=== PATIENT | female | born 1995 | race Caucasian/White ===

== ENCOUNTER 2017-01-23 14:47 | Observation (INO) | payer MEDICAID, OTHER ==
[2017-01-23] VITALS (10 sets, daily range): BP systolic 97–121; BP diastolic 54–64; PULSE 70–84; RESP 16–20; TEMP 96–96.8; O2SAT 98–100; Ht 162.6 cm; Wt 120.9 kg
[~2017-01-23] VITALS: Ht 162.6 cm; Wt 120.9 kg
[~2017-01-23 14:47] MED LIST: AMPH20TA PO; ARIP2TAB3 PO; ASMANEX 220 MCG INH; BUPR150T89 PO; FISH1CAP29 PO; MONT10TA15 PO
--- OUTSIDE RECORDS SUMMARY | 2017-01-23 14:51 | XMS REPORT ---
Author Author Tiffanie Ravi Organization [employer] Address Unknown Phone Unavailable Care Team Providers Care Smeller Name Role Phone Tiffanie Ravi CP Unavailable Allergies, Adverse Reactions, Alerts Substance Reaction Event Type Narcotics Info Not Available Non Drug Allergy Problems Problem Type Condition ICD-9 Code Onset Dates Condition Status Assessment SVT, Sustained 427.0 Active Medications Medication Code System Code Instructions Start Date End Date Status Dosage Keppra [facility] [address]-09 500 MG Orally every 12 hrs 1 tablet Sertraline HCl [facility] [address]-11 50 MG Orally Once a day 1 1/2 tablets Multi-Vitamin [facility] [address]-74 Orally QD 1 tablet Trazodone HCl [facility] [address]-16 100 MG Orally QHS 0.5 tablet at bedtime as needed Metoprolol Tartrate [facility] [address]-26 50 MG Orally Twice a day 1 tablet ProAir HFA [facility] [address]-18 108 (90 Base) MCG/ACT Inhalation every 4 hrs 2 puffs as needed HydrOXYzine HCl [facility] [address]-70 25 MG Orally TID prn 1 tablet Procedures Procedure Coding System Code Date Office Visit, Est Pt., Level 3 CPT-4 68324 Jun 06, 2015 ELECTROCARDIOGRAM, COMPLETE CPT-4 32640 Jun 06, 2015 Vital Signs Date/Time: Jun 06, 2015 BMI 44.11 Index Weight 257. lbs Height 64 in Cardiac Monitoring Heart Rate 69 /min Oximetry 97% % Blood Pressure Diastolic 80 mm Hg Blood Pressure Systolic 110 mm Hg Results No Known Results Summary Purpose [employer] Submission
--- OUTSIDE RECORDS SUMMARY | 2017-01-23 14:51 | XMS REPORT ---
Author Author GENERATED, SYSTEM Organization Unknown Address Unknown Phone Unavailable Care Team Providers Care Social Services Designee Name Role Phone UNASSIGNED DOCTOR MD CYNTHIA DOCTOR PP [phone] Reason For Visit Chief Complaint COUGH, SOB, FEVER Social History Functional Status Vital Signs Results Problems Encounter Diagnosis No relevant problems exist. Encounters Encounter Diagnosis No relevant problems exist. Plan of Care Procedures * Completed Procedure Code: 86.59 Procedure Name: not valued, on 03/18/2014 12: 00 AM Immunizations No immunizations administered or ordered. Hospital Course Hospital Discharge Instructions Allergies, Adverse Reactions, Alerts * Latex Allergy has not been assessed. * IV Contrast Allergy has not been assessed. * No Known Drug Allergies. Medication Medication reconciliation has not been performed.
--- OUTSIDE RECORDS SUMMARY | 2017-01-23 14:51 | XMS REPORT | Summary of Care ---
Author Author Jason Jensen M.D. Organization Unknown Address [address], [place] [id number] Phone Unavailable Care Team Providers Care Forensic Medical Examiner Name Role Phone Mikey Hicks, L Unavailable Unavailable Jeff Yang PP Unavailable Unavailable Unavailable Functional Status Functional Status Health Issues* Name Dates Details Functional status health issues are not documented Status: Cognitive Status Health Issues* Name Dates Details Cognitive status health issues are not documented Status: Problems Name Dates Details Encounter for pre-employment examination (V70.5, Z02.1) Status: Active SVT (supraventricular tachycardia) (427.89, I47.1) Status: Active Anxiety (300.00, F41.9) Status: Active Lack of adequate sleep (V69.4, Z72.820) Status: Active control (V25.9, Z30.9) Status: Active Mood problem (V40.2, F48.9) Status: Active UTI (lower urinary tract infection) (599.0, N39.0) Status: Active Abdominal pain (789.00, R10.9) Status: Active Medications Name Dates Details Venlafaxine HCl - 75 MG Oral Tablet TAKE 3 TABLETS DAILY * Started 15-Jul-2014 ActiveMetoprolol Tartrate 50 MG Oral Tablet TAKE 1 TABLET EVERY 12 HOURS DAILY. * Refills: 0 * Started 25-Jan-2015 ActiveTraZODone HCl - 100 MG Oral Tablet TAKE 1 TABLET AT BEDTIME. * Refills: 0 * Started 25-Jan-2015 ActiveMultiple Vitamins/Womens Oral Tablet TAKE 1 TABLET DAILY. * Refills: 0 * Started 25-Jan-2015 ActiveCiprofloxacin HCl - 500 MG Oral Tablet TAKE 1 TABLET TWICE DAILY. * Quantity: 14 Refills: 0 Jason Jensen M.D.* Started 02-Mar-2015 Ended 09-Mar-2015 ActiveKetorolac Tromethamine 10 MG Oral Tablet TAKE 1 TABLET 3 TIMES DAILY NEEDED FOR PAIN. * Quantity: 15 Refills: 0 Jason Jensen M.D.* Started 02-Mar-2015 ActiveOndansetron 8 MG Oral Tablet Dispersible 1 tab po q 6 hours prin nausea or vomiting * Quantity: 10 Refills: 0 Jason Jensen M.D.* Started 02-Mar-2015 Active Allergies and Adverse Reactions Name Dates Details No Known Drug Allergies Status: Active Past Medical History Name Dates Details History of asthma (V12.69, Z87.09) Status: Resolved History of depression (V11.8, Z86.59) Status: Resolved History of Heart rate problem (785.3, R00.9) Status: Resolved History of supraventricular tachycardia (V12.59, Z86.79) Status: Resolved History of Treadmill stress test negative for angina pectoris (V81.2, Z13.6) Status: Resolved Procedures Procedure Dates Details History of Tonsillectomy Procedures not documented Immunization Name Dates Details Immunizations not documented Family History Grandmother* Name Dates Details Family history of cerebrovascular accident (V17.1, Z82.3) Status: Active Grandmother* Name Dates Details Family history of myocardial infarction (V17.3, Z82.49) Status: Active Grandmother* Name Dates Details Family history of diabetes mellitus (V18.0, Z83.3) Status: Active Grandfather* Name Dates Details Family history of malignant neoplasm of prostate (V16.42, Z80.42) Status: Active Family history of alcoholism (V17.0, Z81.1) Status: Active Mother* Name Dates Details Family history of hypertension (V17.49, Z82.49) Status: Active Brother* Name Dates Details Family history of alcoholism (V17.0, Z81.1) Status: Active Social History Name Dates Details Lack of adequate sleep (V69.4, Z72.820) Smoking Status* Unknown if ever smoked Vital Signs Date Test Result Details 02-Mar-2015 15:46 BP Systolic 130 mm[Hg] Status: BP Diastolic 74 mm[Hg] Status: Heart Rate 90 /min Status: Temperature 99 f Status: O2 SAT 98 % Status: Results Date Description Value Details 02-Mar-2015 16:38 URINE TEST 8010 Comments: pick up attendant rlk URINE TEST Negative (Better) Range: Negative Comments: Internal Control: Acceptable----- 16:40 Manual Differential 7400 SEGS 84 % (Above high threshold) Range: 37-80 BANDS 0 % (Better) Range: 0-7 LYMPH 13 % (Better) Range: 13-50 MONO 3 % (Better) Range: 0-12 EOSIN 0 % (Better) Range: 0-7 BASO 0 % (Better) Range: 0-3 TRACY LYMPH 0 % (Better) Range: 0-0 META 0 % (Better) Range: 0-0 MYELO 0 % (Better) Range: 0-0 PRO 0 % (Better) Range: 0-0 BLAST 0 % (Better) Range: 0-0 NUC RBC 0 /100 WBC (Better) Range: 0-0 SMUDGE 0 /100 WBC (Better) PLATELET Adequate (Better) Range: Adequate 16:41 CBC w/ Auto Diff 7150 Comments: Manual differential indicated. WBC 10.0 K/uL (Better) Range: 4.5-11.0 RBC 4.66 mil/uL (Better) Range: 3.60-5.00 HGB 13.8 g/dL (Better) Range: 12.0-16.0 HCT 39.9 % (Better) Range: 36.0-48.0 MCV 85.7 fL (Better) Range: 80.0-99.0 MCH 29.7 pg (Better) Range: 27.3-32.5 MCHC 34.7 % (Better) Range: 32.0-36.0 RDW 12.9 % (Better) Range: 11.6-14.8 PLATELETS 288 K/uL (Better) Range: 150-400 MPV 7.4 fL (Better) Range: 6.0-11.0 16:46 Urinalysis, Reflex to Microscopic or Culture PRN 8005 Comments: pick up attendant rlk pH 6.0 (Better) Range: 5.0-7.5 SP GRAVITY 1.020 (Better) Range: 1.010-1.030 APPEARANCE CLOUDY (Abnormal) Range: Clear COLOR DKYELLOW (Abnormal) Range: Straw-Yellow PROTEIN 100 mg/dL (Abnormal) Range: Negative-Trace GLUCOSE NEGATIVE mg/dL (Better) Range: Negative KETONE NEGATIVE mg/dL (Better) Range: Negative BILIRUB NEGATIVE (Better) Range: Negative BLOOD LARGE (Abnormal) Range: Negative UROBIL 0.2 EU/dL (Better) Range: 0.2-1.0 NITRITE POSITIVE (Abnormal) Range: Negative Comments: Specimen referred to Microbiology for Culture----- LEUK MODERATE (Abnormal) Range: Negative 16:46 Urine Microscopic UMIC Comments: pick up attendant rlk WBC 11-20 /HPF (Abnormal) Range: 0-5 Comments: Specimen referred to Microbiology for Culture----- RBC TNTC /HPF (Abnormal) Range: 0-2 BACTERIA 3+ /HPF (Abnormal) Range: Negative-Trace Comments: Specimen referred to Microbiology for Culture----- EPITH 6-10 /HPF (Better) Range: 0-10 16:50 AMYLASE 1250 AMYLASE 26 U/L (Better) Range: 25-115 16:50 Lipase 1275 LIPASE 83 U/L (Better) Range: 73-393 16:50 Comprehensive Metabolic Panel 1212 SODIUM 137 mmol/L (Better) Range: 133-144 POTASSIUM 3.9 mmol/L (Better) Range: 3.5-5.1 CHLORIDE 103 mmol/L (Better) Range: 98-110 CARBON DIOXIDE 23.5 mmol/L (Better) Range: 23.0-33.0 ANION GAP 11 mmol/L (Better) Range: 6-16 BUN 11 mg/dL (Better) Range: 7-18 CREATININE, SERUM 0.78 mg/dL (Better) Range: 0.43-1.13 BUN:CREATININE RATIO 14 (Better) EST GFR, >60 ml/min (Better) Range: >60 EST GFR, NON-AFR NEPALESE >60 ml/min (Better) Range: >60 Comments: EST GFR is reported in ml/min per 1.73 m2 of body surface area. For -Czech, please multiple result by 1.2.----- GLUCOSE 92 mg/dL (Better) Range: 70-100 ALK PHOSPHATASE 69 U/L (Better) Range: 46-116 TOTAL BILIRUBIN 1.00 mg/dL (Better) Range: 0.20-1.00 AST 23 U/L (Better) Range: 8-35 ALT 37 U/L (Better) Range: 14-59 Comments: Please note new reference ranges. Effective 12/29/2014.----- ALBUMIN 3.6 g/dL (Better) Range: 3.4-5.0 TOTAL PROTEIN 8.3 g/dL (Above high threshold) Range: 6.4-8.2 A/G RATIO 0.8 units (Below low threshold) Range: 1.0-1.8 CALCIUM 9.1 mg/dL (Better) Range: 8.5-10.1 17:16 CT AB/ PEL WITH IV AND ORAL CONTRAST Comments: Exam Date: 2014 16:20Dictation Date: 03/02/2015 17:16 XC AB/PEL 45 MIN PREP (Better) 04-Mar-2015 07:35 URINE CULTURE 5010 *URINE CULTURE Microbiology results (Better) Comments: URINE SOURCE: Clean CatchCOLONY COUNT>100,000 cfu/ml. of a Gram Neg. BacilliRESULT: Escherichia coli (Isolate 1)Antibiotic Sensitivity Isolate 1 ---------Ampicillin >16 RAmpicillin/Sulbactam 16/8 IAugmentin <=8/4 SCefazolin <=8 SCefepime <=8 SCefoxitin <=8 SCeftazidime <=1 SCeftriaxone <=8 SCefuroxime <=4 SCiprofloxacin <=1 SErtapenem <=1 SGentamicin >8 RImipenem <=4 SLevofloxacin <=2 SMeropenem <=4 SNitrofurantoin <=32 SPiperacillin/Tazobactam <=16 STetracycline >8 RTobramycin 8 ITrimeth/Sulfa >2/38 RS=Sensitive, I=Intermediate, R=Resistant, ESBL=Extended spectrum beta- lactamase enzymes produced, Jim=Beta-lactamase positive, IB=Inducible Beta- lactamase enzymes known to be present.----- Plan of Care Planned Observations* Name Dates Details Planned Goals not documented Goal Instructions * Instructions not documented Encounters Appointment; Jason Jensen Encounter Diagnosis: Problem not documented On 02-Mar-2015 15:30 Appointment; Enrique Nova Encounter Diagnosis: Problem not documented On 25-Jan-2015 10:30 Appointment; Eliud Ledesma Encounter Diagnosis: Problem not documented On 15-Jul-2014 14:30 Appointment; Jason Jensen Encounter Diagnosis: Problem not documented On 14:15 Appointment; Jason Jensen Encounter Diagnosis: Problem not documented On 11:15
--- OUTSIDE RECORDS SUMMARY | 2017-01-23 14:51 | XMS REPORT | Summary of Care ---
Author Author Avtar Hicks, T. K. Organization Unknown Address [address] [place], [place] [id number] Phone Unavailable Care Team Providers Care Services Advisor Name Role Phone Jeff Yang PP Unavailable Functional Status Functional Status Health Issues* Name Dates Details Functional status health issues are not documented Status: Cognitive Status Health Issues* Name Dates Details Cognitive status health issues are not documented Status: Problems Name Dates Details Encounter for pre-employment examination (V70.5, Z02.1) Status: Active SVT (supraventricular tachycardia) (427.89, I47.1) Status: Active Anxiety (300.00, F41.9) Status: Active Heart rate problem (785.3, R00.9) Status: Active Lack of adequate sleep (V69.4, Z72.820) Status: Active control (V25.9, Z30.9) Status: Active Mood problem (V40.2, F48.9) Status: Active Medications Name Dates Details Venlafaxine HCl - 75 MG Oral Tablet TAKE 3 TABLETS DAILY * Started 15-Jul-2014 ActiveHydrOXYzine HCl - 25 MG Oral Tablet TAKE 1 TABLET 3 TIMES DAILY NEEDED. * Refills: 0 * Started 25-Jan-2015 ActiveMetoprolol Tartrate 50 MG Oral Tablet TAKE 1 TABLET EVERY 12 HOURS DAILY. * Refills: 0 * Started 25-Jan-2015 ActiveTraZODone HCl - 100 MG Oral Tablet TAKE 1 TABLET AT BEDTIME. * Refills: 0 * Started 25-Jan-2015 ActiveTri-Sprintec 0.18/0.215/0.25 MG-35 MCG Oral Tablet TAKE 1 TABLET DAILY. * Refills: 0 * Started 25-Jan-2015 ActiveMultiple Vitamins/Womens Oral Tablet TAKE 1 TABLET DAILY. * Refills: 0 * Started 25-Jan-2015 Active Allergies and Adverse Reactions Name Dates Details No Known Drug Allergies Status: Active Procedures Procedure Dates Details Procedures not documented Immunization Name Dates Details Immunizations not documented Family History Unknown Family Member* Name Dates Details No pertinent family history Comments: Unknown Status: Active Social History Name Dates Details Lack of adequate sleep (V69.4, Z72.820) Smoking Status* Unknown if ever smoked Vital Signs Date Test Result Details 25-Jan-2015 10:42 BP Systolic 116 mm[Hg] Status: BP Diastolic 70 mm[Hg] Status: Heart Rate 70 /min Status: Weight 253 lb Status: Height 63 in Status: Body Mass Index Calculated 44.82 kg/m2 Status: Body Surface Area Calculated 2.14 m2 Status: Results Date Description Value Details Results not documented Plan of Care Planned Observations* Name Dates Details Planned Goals not documented Goal Instructions * Instructions not documented Encounters Appointment; Enrique Nova Encounter Diagnosis: Problem not documented On 25-Jan-2015 10:30 Appointment; Eliud Ledesma Encounter Diagnosis: Problem not documented On 15-Jul-2014 14:30 Appointment; Jason Jensen Encounter Diagnosis: Problem not documented On 14:15 Appointment; Jason Jensen Encounter Diagnosis: Problem not documented On 11:15
--- OUTSIDE RECORDS SUMMARY | 2017-01-23 14:51 | XMS REPORT ---
Author Author Tiffanie Ravi Organization [facility] Address [address] [place] [address] Care Team Providers Care Offline Editor Name Role Phone Tiffanie Ravi Unavailable [phone] PROBLEMS Type Condition ICD9-CM Code [id number] Code Onset Dates Condition Status SNOMED Code Assessment SVT, Sustained 427.0 Sep, Active 09813173 Assessment Sinus tachycardia R00.0 Sep, Active 28551424 ALLERGIES Substance Reaction Event Type Date Status Morphine Sulfate Unknown Drug Allergy Sep, Active SOCIAL HISTORY No smoking Hx information available PLAN OF CARE Activity Details Pending Test AtriaECW 6 Months,Reason: VITAL SIGNS Height 64 in 2016-10-17 Weight 246 lbs 2016-10-17 BMI 42.22 kg/m2 2016-10-17 Oximetry 99 % 2016-10-17 Heart Rate 79 /min 2016-10-17 Blood pressure systolic 120 mm Hg 2016-10-17 Blood pressure diastolic 70 mm Hg 2016-10-17 MEDICATIONS Medication Instructions Dosage Frequency Start Date End Date Duration Status Lab Order Orders as directed Sep, Active Lab Order Orders as directed Jun, Active Metoprolol Tartrate 50 MG Orally qd 1 tablet 24h Active Ranitidine HCl 150 MG Orally Once a day 1 tablet 24h Active B-Complex Orally qd 24h Active Probiotic Daily Orally qd 24h Active Tri-Sprintec 0.18/0.215/0.25 MG-35 MCG Orally Once a day 1 tablet 24h Active Bio cleanse-absorbic acid/mag/sodium p.o. bid 1 cap 12h Active Olanzapine 2.5 MG Orally prn 1 tablet Active Minocycline HCl 100 MG Orally qod 1 capsule Active RESULTS No Results PROCEDURES Procedure Date Ordered Related Diagnosis Body Site ELECTROCARDIOGRAM, COMPLETE Oct 17, 2016 Office Visit, Est Pt., Level 3 Oct 17, 2016 IMMUNIZATIONS No Known Immunizations
--- OUTSIDE RECORDS SUMMARY | 2017-01-23 14:51 | XMS REPORT ---
Author Author GENERATED, SYSTEM Organization Unknown Address Unknown Phone Unavailable Care Team Providers Care Machine Captain Name Role Phone UNASSIGNED DOCTOR MD CYNTHIA DOCTOR PP [phone] Reason For Visit Reason for Visit from 04/12/2015 1:24 PM:* Pt Stated Reason for Adm : Depression with SI Reason for Visit from 04/10/2015 5:30 PM:* Pt Stated Reason for Adm : Depression with SI Chief Complaint MOOD D/O NOS Social History Social History from 04/13/2015 11:29 AM:* Tobacco Use? : Never Smoker Social History from 04/12/2015 1:24 PM:* Tobacco Use? : Never Smoker Social History from 04/10/2015 5:30 PM:* Tobacco Use? : Never Smoker Functional Status Functional Status from 04/13/2015 9:00 AM:* LOC : Alert * Oriented To : Person,Place,Time,Event * Weight Bearing Status : Full * Assist Level : Independent * # Assists : Independent Functional Status from 04/12/2015 7:41 PM:* LOC : Alert * Oriented To : Person,Place,Time,Event * Weight Bearing Status : Full * Assist Level : Independent * # Assists : Independent Functional Status from 04/12/2015 10:30 AM:* LOC : Alert * Oriented To : Person,Place,Time,Event * Weight Bearing Status : Full * Assist Level : Independent * # Assists : Independent Functional Status from 04/11/2015 9:15 PM:* LOC : Alert * Oriented To : Person,Place,Time,Event * Weight Bearing Status : Full * Assist Level : Independent * # Assists : Independent Functional Status from 04/11/2015 10:30 AM:* LOC : Alert * Oriented To : Person,Place,Time * Weight Bearing Status : Full * Assist Level : Independent * # Assists : Independent Functional Status from 04/10/2015 8:30 PM:* LOC : Alert * Oriented To : Person,Place,Time,Event * Weight Bearing Status : Full * Assist Level : Independent * # Assists : Independent Functional Status from 04/10/2015 5:30 PM:* LOC : Alert * Oriented To : Person,Place,Time,Event * Weight Bearing Status : Full * Assist Level : Independent * # Assists : Independent Vital Signs Hospital Vital Signs from 04/13/2015 6:31 AM:* Weight : 111.2/ kg * Height : 5/4 ft,in * Temperature : 98.0 F * Pulse : 61 * Respirations : 16 * BP : 106/60 Hospital Vital Signs from 04/12/2015 8:10 AM:* Height : 5/4 ft,in * Pulse : 63 * BP : 135/87 Hospital Vital Signs from 04/12/2015 6:39 AM:* Weight : 111.6/ kg * Height : 5/4 ft,in * Temperature : 97.1 F * Pulse : 62 * Respirations : 18 * BP : 114/62 Hospital Vital Signs from 04/11/2015 8:46 PM:* Height : 5/4 ft,in * Pulse : 54 * Respirations : 18 * BP : 137/84 Hospital Vital Signs from 04/11/2015 9:57 AM:* Height : 5/4 ft,in Hospital Vital Signs from 04/11/2015 8:34 AM:* Height : 5/4 ft,in * Temperature : 97.0 F * Pulse : 164 * Respirations : 18 * BP : 124/75 Hospital Vital Signs from 04/11/2015 5:48 AM:* Height : 5/4 ft,in * Temperature : 97.0 F * Pulse : 62 * Respirations : 18 * BP : 109/49 Hospital Vital Signs from 04/10/2015 9:24 PM:* Height : 5/4 ft,in * Temperature : 97.8 F * Pulse : 66 * Respirations : 20 * BP : 113/57 Hospital Vital Signs from 04/10/2015 5:30 PM:* Weight : 111.6/ kg * Weight : 111.6/ kg * Height : 5/4 ft,in * Height : 5/4 ft,in * Temperature : 98.0 F * Pulse : 69 * Respirations : 18 * BP : 120/61 Results Chemistry from 04/11/2015 4:50 AMGLUCOSE (FASTING) 118 MG/DL H (65-99 MG/DL) Chemistry from 04/10/2015 11:15 PMTSH 0.17 UIU/ML L (0.34-4.82 UIU/ML) THYROXINE FREE 0.86 NG/DL (0.59-1.19 NG/DL) Chemistry from 04/10/2015 8:30 PMSODIUM 138 MMOL/L (136-145 MMOL/L) POTASSIUM 4.0 MMOL/L (3.5-5.1 MMOL/L) CHLORIDE 107 MMOL/L (98-107 MMOL/L) TCO2 18.1 MMOL/L L (21.0-32.0 MMOL/L) ANION GAP 12.9 MMOL/L (8.0-16.0 MMOL/L) BUN 19 MG/DL H (7-18 MG/DL) CREATININE 0.56 MG/DL (0.43-0.83 MG/DL) BUN/CREATININE RATIO 33.9 H (9.1-17.0 ) GLUCOSE 164 MG/DL H (65-99 MG/DL) GFR EST NON AFR YEMENI >90 ML/MIN GFRA EST AFR AMER >90 ML/MIN CALCIUM 8.8 MG/DL (8.5-10.1 MG/DL) BILIRUBIN TOTAL 0.63 MG/DL (0.20-1.00 MG/DL) TOTAL PROTEIN 8.0 GM/DL (6.4-8.2 GM/DL) ALBUMIN 3.5 GM/DL (3.4-5.0 GM/DL) GLOBULIN 4.5 GM/DL H (2.3-3.5 GM/DL) A/G RATIO 0.8 MG/DL L (1.5-2.2 MG/DL) ALK PHOS 65 U/L (46-116 U/L) ALT (SGPT) 57 U/L (16-63 U/L) AST (SGOT) 29 U/L (15-37 U/L) ALCOHOL <0.003 GM/DL Chemistry from 04/10/2015 8:20 PMCOCAINE NEGATIVE (NEG <150 ) PCP NEGATIVE (NEG <25 ) OXYCODONE NEGATIVE (NEG <100 ) *PROPOXYPHENE (NORPROPOXYPHENE) (LAB) NEGATIVE (NEG <300 ) CANNABINOIDS NEGATIVE (NEG <50 ) BENZODIAZEINE NEGATIVE (NEG <150 ) AMPHETAMINE NEGATIVE (NEG <500 ) BARBITURATES NEGATIVE (NEG <200 ) METHAMPHETAMINES NEGATIVE (NEG <500 ) METHADONE (UR) NEGATIVE (NEG <200 ) OPIATES NEGATIVE (NEG <100 ) TRICYCLICS NEGATIVE (NEG <300 ) Urinalysis from 04/10/2015 8:20 PMURINE COLOR YELLOW (STRAW/YELL/DK YELL ) URINE APPEARANCE CLEAR (CLEAR ) URINE PH 6.0 (5.0-8.0 ) URINE SPECIFIC GRAVITY >1.030 (<=1.005->=1.030 ) URINE GLUCOSE NEGATIVE MG/DL (NEGATIVE MG/DL) URINE BILIRUBIN NEGATIVE (NEGATIVE ) URINE KETONES NEGATIVE MG/DL (NEGATIVE MG/DL) URINE BLOOD NEGATIVE (NEGATIVE ) URINE PROTEIN NEGATIVE MG/DL (NEGATIVE MG/DL) URINE UROBILINOGEN 0.2 EU/DL (0.2-1.0 EU/DL) URINE NITRITES NEGATIVE (NEGATIVE ) *URINE LEUKOCYTES NEGATIVE (NEGATIVE ) UR NEGATIVE (NEGATIVE ) Problems Encounter Diagnosis * Altered Mental Status Status:Active. * Mood Disorder Status:Active. Encounters Encounter Diagnosis * Altered Mental Status Status:Active. * Mood Disorder Status:Active. Plan of Care Follow-up Appointments from 04/13/2015 11:29 AM:* #1 Office appointment: : Isabel Timmons--[facility] * #1 Date/Time : 04/18/2015 8:20 AM * Address # 1 : [facility]: [address] * #2 Office appointment: : Serene Phillips--[facility] * #2 Date/Time : 05/02/2016 11:00 AM * Address # 2 : [facility]: [place] [address] * #3 Office appointment: : Renetta [facility] follow up * #3 Date/Time : 04/14/2015 3:00 PM * Address # 3 : [facility]: [place] [address] Procedures * Completed Procedure Code: 86.59 Procedure Name: not valued, on 03/18/2014 12: 00 AM Immunizations No immunizations administered or ordered. Hospital Course Hospital Discharge Instructions How to care for yourself at home from 04/13/2015 11:29 AM:* Discharge Activity : Activity as tolerated,May Shower * Discharge Diet : As before hospitalization * Call your doctor if: : Fever over 101 F or severe chills,Chest pain or other unexplained symptoms,Tingling or numbness develops,A sudden increase or decrease in weight,You have persistent or worsening symptoms Allergies, Adverse Reactions, Alerts * No Latex Allergy. * No IV Contrast Allergy. * No Known Drug Allergies. Medication It is the responsibility of the patient or patient customer retention representative to confirm the list of medications with either the patient's personal care provider or the patient's follow-up care provider to ensure the patient has an appropriate list of medications to take at home. Discharge medications New medications* sertraline (Zoloft) 50 mg Tablet, Ordered By: JAME MASON PAC Directions: 1 tablet oral daily for depression Changed medications* albuterol sulfate (Ventolin HFA) 90 mcg HFA Aerosol Inhaler , Ordered By: JAME MASON, PAC Directions: 2 puff by inhalation every four hours PRN DYSPNEA Additional Instructions: GIVE NEEDED FOR DYSPNEA * hydrOXYzine HCl 25 mg Tablet, Ordered By: JAME MASON PAC Directions: 1 tablet oral three times a day PRN ANXIETY * metoprolol tartrate 50 mg Tablet, Ordered By: JAME MASON, PAC Directions: 1 tablet oral twice a day for HTN * traZODone 100 mg Tablet, Ordered By: JAME MASON, PAC Directions: 1 tablet oral daily at bedtime for insomnia * acetaminophen (Mapap (acetaminophen)) 325 mg Tablet, Ordered By: JAME MASON, PAC Directions: 2 tablet oral every four hours PRN pain Stopped medications* AZITHromycin 250 mg Tablet * predniSONE 20 mg Tablet Directions: twice a day * venlafaxine 75 mg capsule,extended release 24hr Directions: 3 capsules oral daily for depression * ibuprofen 200 mg
--- OUTSIDE RECORDS SUMMARY | 2017-01-23 14:51 | XMS REPORT | Referral Summary ---
Author Author [facility] Organization [facility] Address Unknown Phone Unavailable Care Team Providers Care Fabrication Lead Name Role Phone Jeff Yang Primary Care Physician [phone] Encounter VC Date(s): 05/18/15 - 05/18/15 [facility] [address] [place] [id number] Discharge Disposition: 01-Home or Self Care Attending Physician: Brian Guerrero MD Admitting Physician: Brian Guerrero MD Vital Signs No data available for this section Problem List Condition Effective Dates Status Health Status Informant Allergic Active Rhinitis(Confirmed)1 Anxiety(Confirmed) Active patient Unspec Asthma W/O Active Status Asthmati(Confirmed) ADD/Hyperactivity(Co Active nfirmed) Depression(Confirmed Active patient ) Seizures(Confirmed) Active patient SVT Active patient (supraventricular tachycardia)(Confirm ed) 1Allergic Rhinitis Cause Unspeciifed Allergies, Adverse Reactions, Alerts No Known Allergies Medications hydrOXYzine 0 Refill(s) Start Date: 05/16/15 Status: Ordered Keppra BID, 0 Refill(s) Start Date: 06/02/15 Status: Ordered Metoprolol Tartrate BID, 0 Refill(s) Start Date: 05/16/15 Status: Ordered sertraline Oral, Daily, 0 Refill(s) Start Date: 05/16/15 Status: Ordered traZODone Oral, 0 Refill(s) Start Date: 05/16/15 Status: Ordered Results No data available for this section Immunizations Vaccine Date Refusal Reason human papillomavirus vaccine 04/09/10 Procedures Procedure Date Related Diagnosis Body Site Tonsillectomy Social History Social History Type Response Smoking Status Never smoker Assessment and Plan No data available for this section
--- OUTSIDE RECORDS SUMMARY | 2017-01-23 14:52 | XMS REPORT ---
Author Author GENERATED, SYSTEM Organization Unknown Address Unknown Phone Unavailable Care Team Providers Care Personnel Coordinator Name Role Phone UNASSIGNED DOCTOR , DOCTOR PP [phone] Reason For Visit Reason for Visit from 09/05/2014 2:03 PM:* Pt Stated Reason for Adm : MDD Reason for Visit from 09/04/2014 11:45 PM:* Pt Stated Reason for Adm : MDD Chief Complaint MDD Social History Social History from 09/08/2014 11:30 AM:* Tobacco Use? : Never Smoker Social History from 09/05/2014 2:03 PM:* Tobacco Use? : Never Smoker Social History from 09/04/2014 11:45 PM:* Tobacco Use? : Never Smoker Functional Status Functional Status from 09/08/2014 9:17 AM:* LOC : Alert * Oriented To : Person,Place,Time,Event * Weight Bearing Status : Full * Assist Level : Independent * # Assists : Independent Functional Status from 09/07/2014 8:00 PM:* LOC : Alert * Oriented To : Person,Place,Time,Event * Weight Bearing Status : Full * Assist Level : Independent * # Assists : Independent Functional Status from 09/07/2014 9:20 AM:* LOC : Alert * Oriented To : Person,Place,Time,Event * Weight Bearing Status : Full * Assist Level : Independent * # Assists : Independent Functional Status from 09/06/2014 8:00 PM:* LOC : Alert * Oriented To : Person,Place,Time,Event * Weight Bearing Status : Full * Assist Level : Independent * # Assists : Independent Functional Status from 09/06/2014 9:21 AM:* LOC : Alert * Oriented To : Person,Place,Time,Event * Weight Bearing Status : Full * Assist Level : Independent * # Assists : Independent Functional Status from 09/05/2014 8:00 PM:* LOC : Alert * Oriented To : Person,Place,Time,Event * Weight Bearing Status : Full * Assist Level : Independent * # Assists : Independent Functional Status from 09/05/2014 9:45 AM:* LOC : Alert * Oriented To : Person,Place,Time,Event * Weight Bearing Status : Full * Assist Level : Independent * # Assists : Independent Functional Status from 09/04/2014 11:45 PM:* LOC : Alert * Oriented To : Person,Place,Time,Event * Weight Bearing Status : Full * Assist Level : Independent * # Assists : Independent Vital Signs Hospital Vital Signs from 09/08/2014 7:00 AM:* Height : 5/4 ft,in * Temperature : 97.9 F * Pulse : 69 * Respirations : 18 * BP : 118/62 Hospital Vital Signs from 09/07/2014 6:38 AM:* Weight : 112.7/ kg * Height : 5/4 ft,in * Temperature : 97.9 F * Pulse : 79 * Respirations : 18 * BP : 113/58 Hospital Vital Signs from 09/06/2014 5:57 AM:* Height : 5/4 ft,in * Temperature : 97 F * Pulse : 73 * Respirations : 18 * BP : 118/62 Hospital Vital Signs from 09/05/2014 12:26 PM:* Height : 5/4 ft,in Hospital Vital Signs from 09/05/2014 6:21 AM:* Height : 5/4 ft,in * Temperature : 97.4 F * Pulse : 76 * Respirations : 18 * BP : 112/65 Hospital Vital Signs from 09/04/2014 11:45 PM:* Weight : 110.7/ kg * Height : 5/4 ft,in Hospital Vital Signs from 09/04/2014 11:28 PM:* Weight : 110.7/ kg * Height : 5/4 ft,in * Temperature : 98.2 F * Pulse : 114 * Respirations : 16 * BP : 142/94 Results Chemistry from 09/05/2014 6:24 AMGLUCOSE (FASTING) 91 MG/DL (65-99 MG/DL) Hematology from 09/06/2014 12:00 PMWBC 12.9 X10e3/UL H (3.6-11.2 X10e3/UL) Problems Encounter Diagnosis No relevant problems exist. Encounters Encounter Diagnosis No relevant problems exist. Plan of Care Follow-up Appointments from 09/08/2014 11:30 AM:* #1 Office appointment: : Intake for [facility] * Address # 1 : [facility]: [address], [address], [place] - Procedures * Completed Procedure Code: 86.59 Procedure Name: not valued, on 03/18/2014 12: 00 AM Immunizations No immunizations administered or ordered. Hospital Course Hospital Discharge Instructions How to care for yourself at home from 09/08/2014 11:30 AM:* Discharge Activity : Activity as tolerated * Discharge Diet : As before hospitalization * Call your doctor if: : Fever over 101 F or severe chills,Chest pain or other unexplained symptoms,Tingling or numbness develops,A sudden increase or decrease in weight,You have persistent or worsening symptoms,If you have Heart Failure and you gain 3 pounds within 1 week or your symptoms worsen. (Weigh at home tomorrow morning) Allergies, Adverse Reactions, Alerts * No Latex Allergy. * No IV Contrast Allergy. * No Known Drug Allergies. Medication It is the responsibility of the patient or patient event representative to confirm the list of medications with either the patient's personal care provider or the patient's follow-up care provider to ensure the patient has an appropriate list of medications to take at home. Discharge medications New medications* traZODone 100 mg Tablet, Ordered By: MARIA ISABEL ORO Directions: 1 tablet oral daily at bedtime for insomia Additional Instructions: GIVE WITH FOOD. Changed medications* venlafaxine (Effexor XR) 75 mg capsule,extended release 24hr, Ordered By: MARIA ISABEL ORO Directions: 3 capsule oral daily every morning Stopped medications* control * ciprofloxacin
--- OUTSIDE RECORDS SUMMARY | 2017-01-23 14:52 | XMS REPORT | Summary of Care ---
Author Author Jason Jensen M.D. Organization Unknown Address [address], [place] [id number] Phone Unavailable Care Team Providers Care Multigrapher Name Role Phone Mikey Hicks, L Unavailable [...] Active Mood problem (V40.2, F48.9) Status: Active Abdominal pain (789.00, R10.9) Status: Active UTI (lower urinary tract infection) (599.0, N39.0) Status: Active Medications Name Dates Details Venlafaxine [...] Medical History Name Dates Details History of Heart rate problem (785.3, R00.9) Status: Resolved Procedures Procedure Dates Details Procedures not documented [...] Details 02-Mar-2015 16:38 URINE TEST 8010 Comments: order picker/assembler rlk URINE TEST Negative (Better) Range: Negative [...] to Microscopic or Culture PRN 8005 Comments: order picker/assembler rlk pH 6.0 (Better) Range: 5.0-7.5 SP [...] Range: Negative 16:46 Urine Microscopic UMIC Comments: order picker/assembler rlk WBC 11-20 /HPF (Abnormal) Range: 0-5 [...] ml/min (Better) Range: >60 EST GFR, NON-AFR [place] >60 ml/min (Better) Range: >60 Comments: EST GFR is reported in ml/min per 1.73 m2 of body surface area. For -[place], please multiple result by 1.2.----- GLUCOSE 92 [...] 17:16 XC AB/PEL 45 MIN PREP (Better) Plan of Care Planned Observations* Name Dates [...]
--- OUTSIDE RECORDS SUMMARY | 2017-01-23 14:52 | XMS REPORT ---
Author Author Tiffanie Ravi [facility] eClinicalWorks Address Unknown Phone Unavailable Care Team Providers Care Spray Worker Name Role Phone Tiffanie Ravi Unavailable Allergies No Known Allergies Problems No Known Problems Medications No Known Medications Results No Known Results Summary Purpose eClinicalWorks Submission
--- OUTSIDE RECORDS SUMMARY | 2017-01-23 14:52 | XMS REPORT ---
Author Author GENERATED, SYSTEM Organization Unknown Address Unknown Phone Unavailable Care Team Providers Care Vaccine Manager Name Role Phone UNASSIGNED DOCTORMD DOCTOR PP [phone] Reason For Visit Chief Complaint PRE EMP SCREENING Social History Functional Status Vital Signs Results Problems Encounter Diagnosis No relevant problems exist. Encounters Encounter Diagnosis No relevant problems exist. Plan of Care Procedures No relevant procedures performed. Immunizations No immunizations administered or ordered. Hospital Course Hospital Discharge Instructions Allergies, Adverse Reactions, Alerts * Latex Allergy has not been assessed. * IV Contrast Allergy has not been assessed. Medication Medication reconciliation has not been performed.
--- OUTSIDE RECORDS SUMMARY | 2017-01-23 14:52 | XMS REPORT | Summary of Care ---
Author Author Eliud Ledesma M.D. Organization Unknown Address [address] [place], [place] [id number] Phone Unavailable Functional Status Functional Status Health Issues* Name Dates Details Functional status health issues are not documented Status: Cognitive Status Health Issues* Name Dates Details Cognitive status health issues are not documented Status: Problems Name Dates Details Encounter for pre-employment examination (V70.5, Z02.1) Status: Active Medications Name Dates Details Venlafaxine HCl - 75 MG Oral Tablet * Started 15-Jul-2014 Active Allergies and Adverse Reactions Name Dates Details No Known Drug Allergies Status: Active Procedures Procedure Dates Details Procedures not documented Immunization Name Dates Details Immunizations not documented Social History Smoking Status* Unknown if ever smoked Vital Signs Date Test Result Details 15-Jul-2014 14:48 BP Systolic 122 mm[Hg] Status: BP Diastolic 70 mm[Hg] Status: Heart Rate 76 /min Status: Weight 237 lb Status: Height 63 in Status: Body Mass Index Calculated 41.98 kg/m2 Status: Body Surface Area Calculated 2.08 m2 Status: Results Date Description Value Details Results not documented Plan of Care Planned Observations* Name Dates Details Planned Goals not documented Goal Instructions * Instructions not documented Encounters Appointment; Eliud Ledesma Encounter Diagnosis: Problem not documented On 15-Jul-2014 14:30 Appointment; Jason Jensen Encounter Diagnosis: Problem not documented On 14:15 Appointment; Jason Jensen Encounter Diagnosis: Problem not documented On 11:15
--- OUTSIDE RECORDS SUMMARY | 2017-01-23 14:52 | XMS REPORT ---
Author Author GENERATED, SYSTEM Organization Unknown Address Unknown Phone Unavailable Care Team Providers Care Project Development Coordinator Name Role Phone UNASSIGNED DOCTOR , DOCTOR PP [phone] Reason For Visit Chief Complaint SVT Social History Functional Status Vital Signs Results [...]
--- OUTSIDE RECORDS SUMMARY | 2017-01-23 14:52 | XMS REPORT | Summary of Care ---
Author Author Jason Jensen M.D. Organization Unknown Address [address], [place] [id number] Phone Unavailable Care Team Providers Care Stitching Machine Setter Name Role Phone Mikey Hicks, L Unavailable [...] Details 02-Mar-2015 16:38 URINE TEST 8010 Comments: brain picker rlk URINE TEST Negative (Better) Range: Negative [...] to Microscopic or Culture PRN 8005 Comments: brain picker rlk pH 6.0 (Better) Range: 5.0-7.5 SP [...] Range: Negative 16:46 Urine Microscopic UMIC Comments: brain picker rlk WBC 11-20 /HPF (Abnormal) Range: 0-5 [...] ml/min (Better) Range: >60 EST GFR, NON-AFR [place] >60 ml/min (Better) Range: >60 Comments: EST GFR is reported in ml/min per 1.73 m2 of body surface area. For -[place], please multiple result by 1.2.----- GLUCOSE 92 [...]
--- OUTSIDE RECORDS SUMMARY | 2017-01-23 14:52 | XMS REPORT ---
Author Author GENERATED, SYSTEM Organization Unknown Address Unknown Phone Unavailable Care Team Providers Care Electric Distribution Engineer Name Role Phone UNASSIGNED DOCTOR , DOCTOR PP [phone] Reason For Visit Chief Complaint RT LEG PAIN Social History Functional Status Vital Signs Results Chemistry from 05/30/2015 4:37 PMSODIUM 138 MMOL/L (136-145 MMOL/L) POTASSIUM 3.6 MMOL/L (3.5-5.1 MMOL/L) CHLORIDE 105 MMOL/L (98-107 MMOL/L) TCO2 28.1 MMOL/L (21.0-32.0 MMOL/L) ANION GAP 4.9 MMOL/L L (8.0-16.0 MMOL/L) BUN 15 MG/DL (7-18 MG/DL) CREATININE 0.87 MG/DL (0.55-1.02 MG/DL) BUN/CREATININE RATIO 17.2 H (9.1-17.0 ) GLUCOSE 97 MG/DL (65-99 MG/DL) GFR EST NON AFR RUSSIAN >90 ML/MIN GFRA EST AFR AMER >90 ML/MIN CALCIUM 9.0 MG/DL (8.5-10.1 MG/DL) BILIRUBIN TOTAL 0.66 MG/DL (0.20-1.00 MG/DL) TOTAL PROTEIN 7.5 GM/DL (6.4-8.2 GM/DL) ALBUMIN 3.3 GM/DL L (3.4-5.0 GM/DL) GLOBULIN 4.2 GM/DL H (2.3-3.5 GM/DL) A/G RATIO 0.8 MG/DL L (1.5-2.2 MG/DL) ALK PHOS 99 U/L (46-116 U/L) ALT (SGPT) 215 U/L H (16-63 U/L) AST (SGOT) 107 U/L H (15-37 U/L) Hematology from 05/30/2015 4:37 PMWBC 8.0 X10e3/UL (3.6-11.2 X10e3/UL) RBC 4.41 X10e6/UL (3.63-4.92 X10e6/UL) HEMOGLOBIN 12.9 G/DL (11.0-14.3 G/DL) HEMATOCRIT 37.9 % (31.2-41.9 %) MCV 86.0 FL (79.0-98.0 FL) MCH 29.3 PG (27.0-33.0 PG) MCHC 34.1 G/DL (32.0-36.0 G/DL) RDW 13.1 % (12.3-17.0 %) RDWSD 39.4 (37.1-47.8 ) PLATELET 249 X10e3/UL (159-386 X10e3/UL) MPV 9.2 FL (7.4-10.4 FL) AUTOMATED DIFF PERFORMED SEGS 71.1 % LYMPHOCYTES 18.6 % MONOCYTES 7.1 % EOSINOPHILS 2.4 % BASOPHILS 0.8 % ABSOLUTE NEUTROPHILS 5.70 X10e3/UL (1.80-7.80 X10e3/UL) ABSOLUTE LYMPHOCYTES 1.50 X10e3/UL (1.00-3.00 X10e3/UL) ABSOLUTE MONOCYTES 0.60 X10e3/UL (0.30-1.00 X10e3/UL) ABSOLUTE EOSINOPHILS 0.20 X10e3/UL (0.00-0.50 X10e3/UL) ABSOLUTE BASOPHILS 0.10 X10e3/UL (0.00-0.20 X10e3/UL) Urinalysis from 05/30/2015 6:15 PMUR NEGATIVE (NEGATIVE ) Coagulation from 05/30/2015 4:37 PMPROTHROMBIN TIME 9.9 SECONDS (9.4-11.5 SECONDS ) INR 1.0 (0.9-1.1 ) PARTIAL THROMBOPLASTIN TIME 28.0 SECONDS (23.0-31.0 SECONDS) Problems Encounter Diagnosis No relevant problems exist. Additional Problems * Altered Mental Status Comment:Problem resolved by [facility] Workflow upon Discharge, Status:Resolved. * Mood Disorder Comment:Problem resolved by [facility] Workflow upon Discharge, Status:Resolved. Encounters Encounter Diagnosis No relevant problems exist. [...]
--- OUTSIDE RECORDS SUMMARY | 2017-01-23 14:52 | XMS REPORT ---
Author Author GENERATED, SYSTEM Organization Unknown Address Unknown Phone Unavailable Care Team Providers Care Sole Layer Hand Name Role Phone UNASSIGNED DOCTOR , DOCTOR PP [phone] Reason For Visit Chief Complaint N/V/D UPPER ABD PAIN Social History Functional Status Vital Signs Results Chemistry from 02/03/2015 5:52 PMSODIUM 137 MMOL/L (136-145 MMOL/L) POTASSIUM 3.7 MMOL/L (3.5-5.1 MMOL/L) CHLORIDE 103 MMOL/L (98-107 MMOL/L) TCO2 28.0 MMOL/L (21.0-32.0 MMOL/L) ANION GAP 6.0 MMOL/L L (8.0-16.0 MMOL/L) BUN 14 MG/DL (7-18 MG/DL) CREATININE 0.74 MG/DL (0.43-0.83 MG/DL) BUN/CREATININE RATIO 18.9 H (9.1-17.0 ) GLUCOSE 104 MG/DL H (65-99 MG/DL) GFR EST NON AFR TUN[place]IAN >90 ML/MIN GFRA EST AFR AMER >90 ML/MIN CALCIUM 9.1 MG/DL (8.5-10.1 MG/DL) BILIRUBIN TOTAL 0.32 MG/DL (0.20-1.00 MG/DL) TOTAL PROTEIN 8.2 GM/DL (6.4-8.2 GM/DL) ALBUMIN 3.4 GM/DL (3.4-5.0 GM/DL) GLOBULIN 4.8 GM/DL H (2.3-3.5 GM/DL) A/G RATIO 0.7 MG/DL L (1.5-2.2 MG/DL) ALK PHOS 64 U/L (46-116 U/L) ALT (SGPT) 24 U/L (16-63 U/L) AST (SGOT) 19 U/L (15-37 U/L) AMYLASE 32 U/L (25-115 U/L) LIPASE 121 U/L (73-393 U/L) ALCOHOL <0.003 GM/DL ACETAMINOPHEN <2 MCG/ML L (10-30 MCG/ML) SALICYLATE 1.0 MG/DL L (2.8-20.0 MG/DL) Chemistry from 02/03/2015 4:53 PMCOCAINE NEGATIVE (NEG <150 ) PCP NEGATIVE (NEG <25 ) OXYCODONE NEGATIVE (NEG <100 ) *PROPOXYPHENE (NORPROPOXYPHENE) (LAB) NEGATIVE (NEG <300 ) CANNABINOIDS POSITIVE A (NEG <50 ) BENZODIAZEINE NEGATIVE (NEG <150 ) AMPHETAMINE NEGATIVE (NEG <500 ) BARBITURATES NEGATIVE (NEG <200 ) METHAMPHETAMINES NEGATIVE (NEG <500 ) METHADONE (UR) NEGATIVE (NEG <200 ) OPIATES NEGATIVE (NEG <100 ) TRICYCLICS NEGATIVE (NEG <300 ) Hematology from 02/03/2015 5:52 PMWBC 9.6 X10e3/UL (3.6-11.2 X10e3/UL) RBC 4.44 X10e6/UL (3.63-4.92 X10e6/UL) HEMOGLOBIN 12.9 G/DL (11.0-14.3 G/DL) HEMATOCRIT 39.1 % (31.2-41.9 %) MCV 88.1 FL (79.0-98.0 FL) MCH 29.1 PG (27.0-33.0 PG) MCHC 33.0 G/DL (32.0-36.0 G/DL) RDW 13.1 % (12.3-17.0 %) RDWSD 40.3 (37.1-47.8 ) PLATELET 255 X10e3/UL (159-386 X10e3/UL) MPV 9.1 FL (7.4-10.4 FL) AUTOMATED DIFF PERFORMED SEGS 73.7 % LYMPHOCYTES 18.2 % MONOCYTES 6.9 % EOSINOPHILS 0.9 % BASOPHILS 0.3 % ABSOLUTE NEUTROPHILS 7.10 X10e3/UL (1.80-7.80 X10e3/UL) ABSOLUTE LYMPHOCYTES 1.70 X10e3/UL (1.00-3.00 X10e3/UL) ABSOLUTE MONOCYTES 0.70 X10e3/UL (0.30-1.00 X10e3/UL) ABSOLUTE EOSINOPHILS 0.10 X10e3/UL (0.00-0.50 X10e3/UL) ABSOLUTE BASOPHILS 0.00 X10e3/UL (0.00-0.20 X10e3/UL) Urinalysis from 02/03/2015 4:53 PMURINE COLOR YELLOW (STRAW/YELL/DK YELL ) URINE APPEARANCE SL CLOUDY A (CLEAR ) URINE PH 7.0 (5.0-8.0 ) URINE SPECIFIC GRAVITY 1.020 (<=1.005->=1.030 ) URINE GLUCOSE NEGATIVE MG/DL (NEGATIVE MG/DL) URINE BILIRUBIN NEGATIVE (NEGATIVE ) URINE KETONES NEGATIVE MG/DL (NEGATIVE MG/DL) URINE BLOOD MODERATE A (NEGATIVE ) URINE PROTEIN NEGATIVE MG/DL (NEGATIVE MG/DL) URINE UROBILINOGEN 0.2 EU/DL (0.2-1.0 EU/DL) URINE NITRITES NEGATIVE (NEGATIVE ) *URINE LEUKOCYTES NEGATIVE (NEGATIVE ) MICROSCOPIC EXAM PERFORMED PERFORMED WBC 1-5 /HPF (0-5 /HPF) RBC 1-5 /HPF A (0-1 /HPF) SQUAMOUS EP. CELLS MANY /LPF A (NEG-FEW /LPF) MUCOUS THREADS MANY /LPF A (NEGATIVE /LPF) BACTERIA MODERATE /HPF A (NEGATIVE /HPF) Problems Encounter Diagnosis No relevant problems exist. [...]
--- OUTSIDE RECORDS SUMMARY | 2017-01-23 14:53 | XMS REPORT | Continuity of care Document ---
Author Author GENERATED, SYSTEM Organization Unknown Address Unknown Phone Unavailable Purpose Hospital Course Allergies, Adverse Reactions, Alerts * Latex Allergy has not been assessed. * IV Contrast Allergy has not been assessed. Problems No relevant problems exist. Procedures No relevant procedures performed. Medication Medication reconciliation has not been performed. Results
--- OUTSIDE RECORDS SUMMARY | 2017-01-23 14:53 | XMS REPORT ---
Author Author Tiffanie Ravi [facility] eClinicalWorks Address Unknown Phone Unavailable Care Team Providers Care Living Coach Name Role Phone Tiffanie Ravi Unavailable Allergies No Known Allergies Problems No Known Problems Medications No Known Medications Results No Known Results Summary Purpose eClinicalWorks Submission
--- OUTSIDE RECORDS SUMMARY | 2017-01-23 14:53 | XMS REPORT | Continuity of Care Document ---
Author Author [facility] Address Unknown Phone Unavailable Care Team Providers Care Insurance Rater Name Role Phone WINSOME KIRAN MD Primary Care Physician [phone] Insurance Providers Payer Name Policy Number Subscriber Name Relationship Other1 [id number] [place] 18 Self / Same As Patient Advance Directives Directive Response Recorded Date/Time Advanced Directives No 10/01/16 8:54pm Chief Complaint and Reason for Visit Chief Complaint Cardiac Complaint Reason for Visit Chest wall pain [id number] Problems Active Problems Medical Problem Onset Date Status Abdominal pain Unknown Resolved Anger reaction Unknown Resolved Angioedema 01/05/2016 Acute Chest wall pain Unknown Resolved Cluster headache Unknown Resolved Depression ~07/29/2015 Acute Esophageal spasm Unknown Acute Nausea & vomiting ~05/21/2014 Resolved Seizure disorder Unknown Acute Urticaria 01/05/2016 Acute Vertigo Unknown Acute Medications Current Home Medications Medication Dose Units Route Directions Days/Qty Instructions Start Date Metoprolol Succinate 50 Mg 50 Mg ORAL Daily 06/11/15 Norgestimate-Ethinyl Estradiol 1 Each 1 Each ORAL Daily 08/17/15 Olanzapine 2.5 Mg 2.5 Mg ORAL Bid Prn as needed for Anxiety 01/05/16 Minocycline Hcl 100 Mg 100 Mg ORAL Qother Day 10/01/16 Vitamin B Complex 1 Each 1 Each ORAL Daily 10/01/16 Ranitidine Hcl 150 Mg 150 Mg ORAL Daily 10/01/16 [Plexus Pro Bio 5] 1 Tab ORAL Daily 10/01/16 [Plexus Bio Cleanse] 2 Cap ORAL Daily 10/01/16 Past Home Medications Medication Directions Ordered Status [ Controll] , 1 Tab Daily 05/21/14 Discontinued Alprazolam 0.25 Mg Tablet, 0.25 Mg Oral As Needed 05/21/14 Discontinued Venlafaxine Hcl 150 Mg Tab.er.24, 150 Mg Oral Daily At Hs 09/04/14 Discontinued Ciprofloxacin Hcl 250 Mg Tablet, 250 Mg Oral Twice A Day for Urinary Tract Infection 09/04/14 Discontinued Norgestimate-Ethinyl Estradiol 1 Each Tablet, 1 Each Oral Daily 09/04/14 Discontinued Trazodone Hcl 100 Mg Tablet, 100 Mg Oral Bedtime 01/06/15 Discontinued Hydroxyzine Hcl 25 Mg Tablet, 25 Mg Oral As Needed 01/06/15 Discontinued Sertraline Hcl (Zoloft) 50 Mg Tablet, Unknown Dose Oral Daily 06/11/15 Discontinued Levetiracetam 500 Mg Tab, 500 Mg Oral Twice A Day 06/11/15 Discontinued Vilazodone Hydrochloride 20 Mg Tablet, 20 Mg Oral Daily 08/17/15 Discontinued Quetiapine Fumarate 50 Mg Tabsr, 50 Mg Oral Bedtime 08/17/15 Discontinued Trazodone Hcl 50 Mg Tablet, 25 Mg Oral As Needed 01/05/16 Discontinued Lurasidone Hcl 40 Mg Tablet, 40 Mg Oral Daily 01/05/16 Discontinued Olanzapine 7.5 Mg Tablet, 7.5 Mg Oral Daily 01/05/16 Discontinued Diphenhydramine Hcl 25 Mg Tab, 50 Mg Oral As Needed 01/05/16 Discontinued Famotidine 20 Mg Tablet, 20 Mg Oral As Needed 01/05/16 Discontinued Prednisone 20 Mg Tablet, 20 Mg Oral Twice A Day 01/05/16 Discontinued Social History Query Response Start Date Stop Date Smoking Status Never smoker Hospital Discharge Instructions No hospital discharge instructions. Plan of Care Discharge Date 10/02/16 12:16am Disposition 01 HOME OR SELF-CARE Condition at Discharge Stable Instructions/Education Provided Chest Pain (DC) Costochondritis (DC) Prescriptions See Medication Section Referrals WINSOME KIRAN MD - Additional Instructions/Education Meds as before. OTC Ibuprofen 400mg every 8 hours with food as needed for recurrent sharp chest wall pain. Return to ER as needed for severe pain, especially if associated with shortness of breath or a fast heart rate. Follow up with Dr. Zavaleta this , as already scheduled. Some of your test results may not be complete prior to your leaving the Emergency Department. The Emergency Department is not authorized to give test results over the phone. Please contact the doctor's office listed in this packet of information for your final results. Follow up with your primary care physician or return to the Emergency Department for worsening or worrisome symptoms. * Emergency Department phone number: [phone], x [phone]* MEDICAL RECORD If you need copies of your X-rays, call [phone]. If you need copies of your medical record, including lab results, a signed authorization for release of records will be required. A telephone call for release of Health Information is not allowed. BILLING Billing can sometimes be confusing and frustrating. To help avoid confusion in the future, please take a moment to acquaint yourself with the billing parties for services. [employer] [facility] Emergency Room Services [facility] Physician Services [facility] X-rays [facility] Patients will receive bills for services from the appropriate provider. If you have any questions about your [facility] bill, our staff will be happy to assist you. Please call [phone], and ask for the billing department. THANK YOU for choosing [facility] as your emergency care provider! Care Plan and Goals ~~Discharge Care Plan~~ Problem: Chest, epigastric or chest wall pain Goal: Decreased pain Instructions: Take medication(s) as directed. Follow home discharge instructions. Follow up with primary care physician or heating equipment installer as directed. Functional Status No functional status results. Allergies, Adverse Reactions, Alerts Allergen Type Severity Reaction Status Last Updated Penicillin Allergy Unknown Active 10/01/16 Morphine Allergy Unknown Active 10/01/16 Immunizations Name Given Type Status Date Influenza Vaccine Received if Current 08/03/14 Historical Historical Vital Signs Acute Vital Signs Vital Response Date/Time Temperature (Fahrenheit) 97.2 10/02/2016 12:13am Pulse 89 bpm 10/02/2016 12:13am Respirations 24 10/02/2016 12:13am Height 5 ft 4 in Weight 247 lb Body Mass Index 42.0 kg/m^2 Results Pending Laboratory Results Test Name Collection Date/Time Procedures No known history of procedures. Encounters Encounter Location Arrival/Admit Date Discharge/Depart Date Attending Provider Departed Emergency Room [facility] 10/01/16 8:42pm 10/02/16 12:16am PIERRE CORTÉS MD Registered Clinic [facility] 09/28/16 9:40am WINSOME KIRAN MD Registered Clinic [facility] 09/25/16 3:45pm CESILIA ANGELES MD Recent Diagnosis
--- OUTSIDE RECORDS SUMMARY | 2017-01-23 14:53 | XMS REPORT | Continuity of Care Document ---
Author Author [facility] Organization [facility] Address Unknown Phone Unavailable Care Team Providers Care Insurance Customer Service Specialist Name Role Phone Alexy Yang MD Primary Care Physician [phone] Insurance Providers Payer Name Policy Number Subscriber Name Relationship [facility] [id number] Mary [place] 19 Self / Same As Patient Chief Complaint and Reason for Visit Chief Complaint Altered Neurologic Status Reason for Visit [id number] Problems Medical Problems Problem Onset Date Status Nausea & vomiting ~05/21/2014 Active Anger reaction Unknown Active Cluster headache Unknown Active Medications Medication Dose Route Sig Days/Qty Instructions Order Date Discontinued Date Status [ Controll] 1 Tab DAILY 05/21/14 09/04/14 Discontinued Alprazolam 0.25 Mg ORAL NEEDED 05/21/14 09/04/14 Discontinued Venlafaxine Hcl 150 Mg ORAL DAILY AT 09/04/14 Active Ciprofloxacin Hcl 250 Mg ORAL TWICE A DAY For Urinary tract infection 09/04/14 01/06/15 Discontinued Norgestimate-Ethinyl Estradiol 1 Each ORAL DAILY 09/04/14 Active Trazodone Hcl 100 Mg ORAL BEDTIME 01/06/15 Active Hydroxyzine HCl 25 Mg ORAL NEEDED 01/06/15 Active Social History No social history. Hospital Discharge Instructions No hospital discharge instructions. Plan of Care Discharge Date 01/07/15 12:38am Disposition 01 HOME OR SELF-CARE Condition at Discharge Stable Instructions/Education Provided Cluster Headache (ED) Prescriptions See Medications Section Referrals Alexy Yang MD Additional Instructions/Education Home to bed. OTC Ibuprofen 400mg every 6 hours with food as needed for recurrent headache. See information re: Cluster headaches. Return to ER as needed for severe headache. Some of your test results may not [...] worrisome symptoms. * Emergency Department phone number: [phone], x [phone]* MEDICAL RECORD If you need copies of your X-rays, call [phone]. If you need copies of [...] the billing parties for services. [facility] Emergency Room Services [facility] Physician Services [facility] X-rays [facility] Patients will receive bills for services from the appropriate provider. If you have any questions about your [facility] bill, our staff will be happy to assist you. Please call [phone], and ask for the billing department. THANK YOU for choosing [facility] as your emergency care provider! Functional Status No functional status results. Allergies, Adverse Reactions, Alerts Allergen Type Severity Reaction Status Last Updated Morphine Allergy Unknown Active 01/06/15 Immunizations No immunization records. Vital Signs Acute Vital Signs Vital Response Date/Time Temperature (Fahrenheit) 97.2 Pulse 73 bpm Respirations 18 Height 5 ft 4 in Weight 255 lb Body Mass Index 43.0 kg/m^2 Results Test Source Date Result Interp. Ref. Range Comments Urine Hydromorphone Confirmation December 22, 2014 12:01pm Not detected ng/ mL () Cutoff: 100 ng/mL Urine Hydrocodone Confirmation December 22, 2014 12:01pm Not detected ng/mL () Vmsrjn=092 ng/mL Codeine Confirmation December 22, 2014 12:01pm Not detected ng/mL () Yegcjl=503 ng/mL Urine Morphine Confirmation December 22, 2014 12:01pm Not detected ng/mL () Obhnge=392 ng/mL Acetaminophen Level September 04, 2014 4:52pm < 10.0 UG/ML L 10.0-30.0 Alanine Aminotransferase (ALT/SGPT) September 04, 2014 4:52pm 35 U/L N 30 -65 Albumin September 04, 2014 4:52pm 4.3 G/DL N 3.4-5.0 Albumin/Globulin Ratio September 04, 2014 4:52pm 1.162 N 1.1-1.8 Alkaline Phosphatase September 04, 2014 4:52pm 72 U/L N 38-126 Anion Gap September 04, 2014 4:52pm 13.9 MEQ/L N 3-15 Aspartate Amino Transf (AST/SGOT) September 04, 2014 4:52pm 20 U/L N 15- 37 BUN/Creatinine Ratio September 04, 2014 4:52pm 18 N 10-20 Basophils # (Auto) September 04, 2014 4:52pm 0.1 10^3uL Basophils (%) (Auto) September 04, 2014 4:52pm 1 % N 0-2 Blood Urea Nitrogen September 04, 2014 4:52pm 16 MG/DL N 7-18 Calcium Level September 04, 2014 4:52pm 10.1 MG/DL N 8.8-10.8 Calculated Osmolality September 04, 2014 4:52pm 277 MOSM/L L 280-300 Carbon Dioxide Level September 04, 2014 4:52pm 27 MMOL/L N 22-29 Chloride Level September 04, 2014 4:52pm 106 mmol/L N 98-108 Creatinine September 04, 2014 4:52pm 0.90 mg/dL N 0.6-1.2 Eosinophils # (Auto) September 04, 2014 4:52pm 0.1 10^3uL Eosinophils (%) (Auto) September 04, 2014 4:52pm 1 % N 0-4 Glucose Level September 04, 2014 4:52pm 103 mg/dL N 70-110 Hematocrit September 04, 2014 4:52pm 38.70 % N 35.00-45.00 Hemoglobin September 04, 2014 4:52pm 13.6 g/dL N 12.0-15.5 Lymphocytes # (Auto) September 04, 2014 4:52pm 1.5 X10^3 Lymphocytes (%) (Auto) September 04, 2014 4:52pm 13 % L 20-46 Mean Corpuscular Hemoglobin September 04, 2014 4:52pm 30.2 PG N 26.0- 34.0 Mean Corpuscular Hemoglobin Concent September 04, 2014 4:52pm 35.1 g/dL N 31.0-37.0 Mean Corpuscular Volume September 04, 2014 4:52pm 86 FL N 80-100 Mean Platelet Volume September 04, 2014 4:52pm 11.0 FL H 6.0-9.5 Monocytes # (Auto) September 04, 2014 4:52pm 0.7 X10^3 Monocytes (%) (Auto) September 04, 2014 4:52pm 7 % N 3-11 Neutrophils # (Auto) September 04, 2014 4:52pm 8.6 X10^3 Neutrophils (%) (Auto) September 04, 2014 4:52pm 79 % H 51-67 Platelet Count September 04, 2014 4:52pm 265 10^3uL N 150-450 Potassium Level September 04, 2014 4:52pm 4.0 mmol/L N 3.5-5.1 Red Blood Count September 04, 2014 4:52pm 4.50 10^6uL N 4.00-5.00 Red Cell Distribution Width September 04, 2014 4:52pm 12.1 % N 11.8-15.6 Salicylates Level September 04, 2014 4:52pm < 1.0 MG/DL L 2.0-20.0 Sodium Level September 04, 2014 4:52pm 143 MMOL/L N 135-150 Total Bilirubin September 04, 2014 4:52pm 0.9 MG/DL N 0.1-1.0 Total Protein September 04, 2014 4:52pm 8.0 G/DL N 6.4-8.5 Ur Tricyclic Antidepressants Screen December 22, 2014 12:01pm Negative Negative Urine Amphetamines Screen December 22, 2014 12:01pm Negative Negative Urine Bacteria May 21, 2014 11:23pm None seen /HPF Urine collection method Clean Catch Urine Barbiturates Screen December 22, 2014 12:01pm Negative Negative Urine Benzodiazepines Screen December 22, 2014 12:01pm Negative Negative Urine Bilirubin May 21, 2014 11:23pm Negative Negative Urine collection method Clean Catch Urine Blood May 21, 2014 11:23pm Trace-intact H Negative Urine collection method Clean Catch Urine Clarity May 21, 2014 11:23pm Slightly cloudy Urine collection method Clean Catch Urine Cocaine Screen December 22, 2014 12:01pm Negative Negative Urine Collection Type May 21, 2014 11:23pm Clean catch Urine collection method Clean Catch Urine Color May 21, 2014 11:23pm Yellow Urine collection method Clean Catch Urine Glucose (UA) May 21, 2014 11:23pm Negative Negative Urine collection method Clean Catch Urine Ketones May 21, 2014 11:23pm Negative Negative Urine collection method Clean Catch Urine Leukocyte Esterase May 21, 2014 11:23pm Negative Negative Urine collection method Clean Catch Urine Methamphetamines Screen December 22, 2014 12:01pm Negative NEGATIVE Urine Nitrite May 21, 2014 11:23pm Negative Negative Urine collection method Clean Catch Urine Opiates Screen December 22, 2014 12:01pm Positive H Negative Urine Phencyclidine Screen December 22, 2014 12:01pm Positive H Negative Phencyclidine testing by this method can showcross-reactivity with several common medications such as venlafaxine, dextromethorphan, and diphenhydramine. Submission of any positive sample for confirmatory testing is recommended. Urine Propoxyphene Screen December 22, 2014 12:01pm Negative NEGATIVE Results of this screen are qualitative and are presumptiveresults. A more specific method (i.e. GC/MS) must be used if confirmation of results is indicated. Urine Protein May 21, 2014 11:23pm Negative Negative Urine collection method Clean Catch Urine RBC May 21, 2014 11:23pm 0-2 /HPF Urine collection method Clean Catch Urine Specific [place] May 21, 2014 11:23pm >=1.030 1.005-1.030 Urine collection method Clean Catch Urine Squamous Epithelial Cells May 21, 2014 11:23pm 20-50 /LPF Urine collection method Clean Catch Urine Urobilinogen May 21, 2014 11:23pm 0.2 mg/dL 0.2-1.0 Urine collection method Clean Catch Urine WBC May 21, 2014 11:23pm None seen /HPF Urine collection method Clean Catch Urine pH May 21, 2014 11:23pm 5.5 5.0 - 8.0 Urine collection method Clean Catch White Blood Count September 04, 2014 4:52pm 10.89 10^3uL N 4.0-11.0 Serum Alcohol September 04, 2014 4:52pm < 10.0 mg/dL L 10-80 Volume Urine Centrifuged May 21, 2014 11:23pm 10 ml Urine collection method Clean Catch Estimat Glomerular Filtration Rate September 04, 2014 4:52pm 98.7 Urine Oxycodone Screen December 22, 2014 12:01pm Negative NEGATIVE Urine Methadone Screen December 22, 2014 12:01pm Negative Negative Urine Cannabinoids Screen December 22, 2014 12:01pm Negative Negative Estimated GFR (Non- September 04, 2014 4:52pm 81.6 Calcium/Ionized Calcium Ratio September 04, 2014 4:52pm 4.00 mg/dL Procedures No known history of procedures. Encounters Encounter Location Date/Time Departed Emergency Room [facility] 01/06/15 8:37pm Recent Diagnosis
--- OUTSIDE RECORDS SUMMARY | 2017-01-23 14:53 | XMS REPORT | Referral Summary ---
Author Author [facility] Organization [facility] Address Unknown Phone Unavailable Care Team Providers Care Offender Employment Specialist Name Role Phone Jeff Yang Primary Care Physician [phone] Encounter VC Date(s): 05/16/15 - 05/16/15 [facility] [address] [place] [address] VO [phone] Final: DYSURIA Discharge Disposition: Against Medical Advice Attending Physician: Tucker Rubio MD Admitting Physician: Tucker Rubio MD Vital Signs Most recent to 1 oldest [Reference Range]: Temperature Oral 36.7 degC [35.8-37.3 degC] (05/16/15 9:50 PM) Peripheral Pulse 82 bpm Rate [60-100 bpm] (05/16/15 9:50 PM) Respiratory Rate 16 br/min [14-20 br/min] (05/16/15 9:50 PM) Blood Pressure 111/70 mmHg [90-140/60-90 mmHg] (05/16/15 9:50 PM) SpO2 98 % (05/16/15 9:50 PM) Problem List Condition Effective Dates Status Health [...] Refill(s) Start Date: 05/16/15 Status: Ordered Results Urinalysis Most recent to 1 oldest [Reference Range]: UA Color Yellow (05/16/15 10:27 PM) UA Appear Clear (05/16/15 10:27 PM) UA pH [5.0-8.0] 5.0 (05/16/15 10:27 PM) UA Leuk Est Negative [Negative] (05/16/15 10:27 PM) UA Nitrite Negative [Negative] (05/16/15 10:27 PM) UA Protein Negative [Negative] (05/16/15 10:27 PM) UA Glucose Negative [Negative] (05/16/15 10:27 PM) UA Ketones Negative [Negative] (05/16/15 10:27 PM) UA Urobilinogen Negative [<1.0] (05/16/15 10:27 PM) UA Bili [Negative] Negative (05/16/15 10:27 PM) UA Blood [Negative] Trace *ABN* (05/16/15 10:27 PM) UA Spec Grav 1.023 [1.003-1.030] (05/16/15 10:27 PM) Type Clean Catch (05/16/15 10:27 PM) UA WBC [0-4] None Seen (05/16/15 10:27 PM) UA RBC [0-2] 0-2 (05/16/15 10:27 PM) Epithelial Cells 2-5 (05/16/15 10:27 PM) UA Bacteria Rare (05/16/15 10:27 PM) UA Mucous Present (05/16/15 10:27 PM) Immunizations Vaccine Date Refusal Reason human papillomavirus vaccine 04/09/10 Procedures Procedure Date Related Diagnosis Body Site Tonsillectomy Social History Social History Type Response Smoking Status Never smoker Assessment and Plan No data available for this section
--- OUTSIDE RECORDS SUMMARY | 2017-01-23 14:53 | XMS REPORT ---
Author Author GENERATED, SYSTEM Organization Unknown Address Unknown Phone Unavailable Care Team Providers Care Invoice Classification Clerk Name Role Phone UNASSIGNED DOCTOR , DOCTOR PP [phone] Reason For Visit Reason for Visit from 11/25/2016 2:42 PM:* Pt Stated Reason for Adm : SI with plan to OD Reason for Visit from 11/25/2016 1:50 PM:* Pt Stated Reason for Adm : "Because I don't give a fuck about life." Chief Complaint MDD REC SEVERE Social History Social History from 11/28/2016 12:26 PM:* Tobacco Use? : Never Smoker Social History from 11/25/2016 2:42 PM:* Tobacco Use? : Never Smoker Social History from 11/25/2016 1:50 PM:* Tobacco Use? : Never Smoker Functional Status Functional Status from 11/28/2016 9:00 AM:* LOC : Alert * Oriented To : Person,Place,Time * Weight Bearing Status : Full * Assist Level : Independent * # Assists : Independent Functional Status from 11/27/2016 7:35 PM:* LOC : Alert * Oriented To : Person,Place,Time,Event * Weight Bearing Status : Full * Assist Level : Independent * # Assists : Independent Functional Status from 11/27/2016 8:30 AM:* LOC : Alert * Oriented To : Person,Place,Time,Event * Weight Bearing Status : Full * Assist Level : Independent * # Assists : Independent Functional Status from 11/26/2016 7:14 PM:* LOC : Alert * Oriented To : Person,Place,Time,Event * Weight Bearing Status : Full * Assist Level : Independent * # Assists : Independent Functional Status from 11/26/2016 8:58 AM:* LOC : Alert * Oriented To : Person,Place,Time,Event * Weight Bearing Status : Full * Assist Level : Independent * # Assists : Independent Functional Status from 11/25/2016 7:59 PM:* LOC : Alert * Oriented To : Person,Place,Time,Event * Weight Bearing Status : Full * Assist Level : Independent * # Assists : Independent Functional Status from 11/25/2016 1:50 PM:* LOC : Alert * Oriented To : Person,Place,Time,Event * Weight Bearing Status : Full * Assist Level : Independent * # Assists : Independent Vital Signs Hospital Vital Signs from 11/28/2016 6:15 AM:* Height : 5/4 ft,in * Temperature : 98.4 F * Pulse : 60 * Respirations : 18 * BP : 116/65 Hospital Vital Signs from 11/27/2016 6:09 AM:* Height : 5/4 ft,in * Temperature : 98.7 F * Pulse : 53 * Respirations : 20 * BP : 121/68 Hospital Vital Signs from 11/26/2016 7:43 PM:* Weight : 111.4/ kg * Height : 5/4 ft,in * Temperature : 98.1 F * Pulse : 80 * Respirations : 20 * BP : 125/61 Hospital Vital Signs from 11/26/2016 9:57 AM:* Height : 5/4 ft,in Hospital Vital Signs from 11/26/2016 6:19 AM:* Height : 5/4 ft,in * Temperature : 99.3 F * Pulse : 71 * Respirations : 20 * BP : 117/73 Hospital Vital Signs from 11/25/2016 1:50 PM:* Weight : 111.9/ kg * Height : 5/4 ft,in Hospital Vital Signs from 11/25/2016 1:37 PM:* Weight : 111.9/ kg * Height : 5/4 ft,in * Temperature : 98.9 F * Pulse : 71 * Respirations : 18 * BP : 142/88 Results Chemistry from 11/26/2016 6:47 AMGLUCOSE (FASTING) 80 MG/DL (65-99 MG/DL) ALCOHOL <0.003 GM/DL Chemistry from 11/25/2016 2:58 PMSODIUM 139 MMOL/L (136-145 MMOL/L) POTASSIUM 3.6 MMOL/L (3.5-5.1 MMOL/L) CHLORIDE 105 MMOL/L (98-107 MMOL/L) TCO2 26.3 MMOL/L (21.0-32.0 MMOL/L) *ANION GAP 7.7 MMOL/L L (8.0-16.0 MMOL/L) BUN 18 MG/DL (7-18 MG/DL) CREATININE 0.91 MG/DL (0.55-1.02 MG/DL) *BUN/CREATININE RATIO 19.8 H (9.1-17.0 ) GLUCOSE 146 MG/DL H (65-99 MG/DL) *GFR EST NON AFR [place] >90 ML/MIN *GFR EST AFR AMER >90 ML/MIN CALCIUM 8.9 MG/DL (8.5-10.1 MG/DL) BILIRUBIN TOTAL 0.80 MG/DL (0.20-1.00 MG/DL) TOTAL PROTEIN 7.7 GM/DL (6.4-8.2 GM/DL) ALBUMIN 3.7 GM/DL (3.4-5.0 GM/DL) *GLOBULIN 4.0 GM/DL H (2.3-3.5 GM/DL) *A/G RATIO 0.9 MG/DL L (1.5-2.2 MG/DL) ALK PHOS 64 U/L (46-116 U/L) ALT (SGPT) 33 U/L (16-63 U/L) AST (SGOT) 18 U/L (15-37 U/L) TSH 0.344 UIU/ML (0.340-4.820 UIU/ML) Chemistry from 11/25/2016 1:48 PM*COCAINE NEGATIVE (NEG <150 ) *PCP NEGATIVE (NEG <25 ) *CANNABINOIDS NEGATIVE (NEG <50 ) *BENZODIAZEINE NEGATIVE (NEG <200 ) *AMPHETAMINE NEGATIVE (NEG <500 ) *BARBITURATES NEGATIVE (NEG <200 ) *OPIATES NEGATIVE (NEG <300 ) Hematology from 11/25/2016 2:58 PMWBC 10.5 X10e3/UL (3.6-11.2 X10e3/UL) RBC 4.35 X10e6/UL (3.63-4.92 X10e6/UL) HEMOGLOBIN 13.3 G/DL (11.0-14.3 G/DL) HEMATOCRIT 37.7 % (31.2-41.9 %) *MCV 86.8 FL (79.0-98.0 FL) *MCH 30.7 PG (27.0-33.0 PG) *MCHC 35.3 G/DL (32.0-36.0 G/DL) *RDW 13.1 % (12.3-17.0 %) *RDWSD 40.7 (37.1-47.8 ) PLATELET 274 X10e3/UL (159-386 X10e3/UL) *MPV 9.8 FL (7.4-10.4 FL) Urinalysis from 11/25/2016 1:48 PM*URINE COLOR YELLOW (STRAW/YELL/DK YELL ) *URINE APPEARANCE SL CLOUDY A (CLEAR ) URINE PH 6.0 (5.0-8.0 ) URINE SPECIFIC GRAVITY 1.025 (<=1.005->=1.030 ) *URINE GLUCOSE NEGATIVE MG/DL (NEGATIVE MG/DL) *URINE BILIRUBIN NEGATIVE (NEGATIVE ) *URINE KETONES NEGATIVE MG/DL (NEGATIVE MG/DL) *URINE BLOOD TRACE-INTACT A (NEGATIVE ) *URINE PROTEIN NEGATIVE MG/DL (NEGATIVE MG/DL) *URINE UROBILINOGEN 0.2 EU/DL (0.2-1.0 EU/DL) *URINE NITRITES NEGATIVE (NEGATIVE ) *URINE LEUKOCYTES NEGATIVE (NEGATIVE ) UR NEGATIVE (NEGATIVE ) *MICROSCOPIC EXAM PERFORMED PERFORMED *WBC URINE 1-5 /HPF (0-5 /HPF) *RBC URINE 1-5 /HPF A (0-1 /HPF) *SQUAMOUS EP. CELLS MANY /LPF A (NEG-FEW /LPF) *MUCOUS THREADS MODERATE /LPF A (NEGATIVE /LPF) *BACTERIA MODERATE /HPF A (NEGATIVE /HPF) Microbiology from 11/25/2016 1:48 PM* CULTURE URINE Specimen Number: [id number] Sample Collection Date/Time: 11/25/2016 1:48 PM Specimen Source: Urine CULTURE URINE: 5,000 cfu/ml 2 or more gram positive colony types with: Elayne albicans Problems Encounter Diagnosis * Anxiety Status:Active. * Mood Disorder Status:Active. Additional Problems * Altered Mental Status Comment:Problem resolved by [facility] upon Discharge, Status:Resolved. Encounters Encounter Diagnosis * Anxiety Status:Active. * Mood Disorder Status:Active. Plan of Care Follow-up Appointments from 11/28/2016 12:26 PM:* #1 Office appointment: : Stuart Martinez * #1 Date/Time : 12/02/2016 2:00 PM * Address # 1 : [facility]: [address], [address], [place] - * #2 Office appointment: : Dr Ho * #2 Date/Time : 12/12/2016 1:00 PM * Address # 2 : [facility]: [address], [address], [place] - Procedures * Completed Procedure Code: 86.59 Procedure Name: not valued, on 03/18/2014 12: 00 AM Immunizations No immunizations administered or ordered. Hospital Course Hospital Discharge Instructions How to care for yourself at home from 11/28/2016 12:26 PM:* Discharge Activity : Activity as tolerated * Discharge Diet : As before hospitalization * Call your doctor if: : Fever over 101 F or severe chills,Chest pain or other unexplained symptoms,Tingling or numbness develops,A sudden increase or decrease in weight,You have persistent or worsening symptoms Allergies, Adverse Reactions, Alerts * No Latex Allergy. * No IV Contrast Allergy. * No Known Drug Allergies. * No Known Food Allergies. * No Known Allergies. Medication It is the responsibility of the patient or patient call center support representative to confirm the list of medications with either the patient's personal care provider or the patient's follow-up care provider to ensure the patient has an appropriate list of medications to take at home. Discharge medications Continued medications* ondansetron 4 mg tablet,disintegrating, Ordered By: MARIA ISABEL RONDON Directions: 1 tablet oral three times a day PRN nausea or vomiting Additional Instructions: Supply at home * traMADol 50 mg Tablet, Ordered By: MARIA ISABEL RONDON Directions: 1 to 2 tablets oral three times a day PRN pain Additional Instructions: Supply at home Changed medications* cholecalciferol (vitamin D3) (Vitamin D3) 1,000 unit Tablet , Ordered By: MARIA ISABEL RONDON Directions: 1 tablet oral daily for supplementation Additional Instructions: Supply at home * hydrOXYzine pamoate (Vistaril) 25 mg Capsule, Ordered By: MARIA ISABEL RONDON Directions: 1 capsule oral three times a day for anxiety Additional Instructions: ` * metoprolol succinate 50 mg Tablet Extended Release 24 hr, Ordered By: MARIA ISABEL RONDON Directions: 1 tablet oral daily for for rhythm control Additional Instructions: Supply at home * minocycline 100 mg Tablet, Ordered By: MARIA ISABEL RONDON Directions: 1 tablet oral every other day for Acne Additional Instructions: Supply at home * norgestimate-ethinyl estradiol (Sprintec (28)) 0.25 mg-35 mcg Tablet, Ordered By: MARIA ISABEL RONDON Directions: 1 tablet oral daily for Control Additional Instructions: Supply at home * venlafaxine (Effexor XR) 150 mg capsule,extended release 24hr, Ordered By: MARIA ISABEL RONDON Directions: 1 capsule oral daily for depression Stopped medications* predniSONE 5 mg Tablet Directions: 3 tablet oral daily Additional Instructions: for 5 days
--- OUTSIDE RECORDS SUMMARY | 2017-01-23 14:53 | XMS REPORT ---
Author Author GENERATED, SYSTEM Organization Unknown Address Unknown Phone Unavailable Care Team Providers Care Mat Puncher Name Role Phone UNASSIGNED DOCTOR , DOCTOR PP [phone] Reason For Visit Chief Complaint CRISIS Social History Functional Status Vital Signs Results Chemistry from 09/04/2014 10:24 PMSODIUM 139 MMOL/L (136-145 MMOL/L) POTASSIUM 3.4 MMOL/L L (3.5-5.1 MMOL/L) CHLORIDE 106 MMOL/L (98-107 MMOL/L) TCO2 26.2 MMOL/L (21.0-32.0 MMOL/L) ANION GAP 6.8 MMOL/L L (8.0-16.0 MMOL/L) BUN 16 MG/DL (7-18 MG/DL) CREATININE 0.94 MG/DL H (0.43-0.83 MG/DL) BUN/CREATININE RATIO 17.0 (9.1-17.0 ) GLUCOSE 134 MG/DL H (65-99 MG/DL) GFR EST NON AFR [place] 88 ML/MIN GFRA EST AFR AMER >90 ML/MIN CALCIUM 9.4 MG/DL (8.5-10.1 MG/DL) BILIRUBIN TOTAL 0.60 MG/DL (0.20-1.00 MG/DL) TOTAL PROTEIN 8.8 GM/DL H (6.4-8.2 GM/DL) ALBUMIN 3.7 GM/DL (3.4-5.0 GM/DL) GLOBULIN 5.1 GM/DL H (2.3-3.5 GM/DL) A/G RATIO 0.7 MG/DL L (1.5-2.2 MG/DL) ALK PHOS 71 U/L (46-116 U/L) ALT (SGPT) 33 U/L (12-78 U/L) AST (SGOT) 18 U/L (15-37 U/L) TEST NEGATIVE (NEGATIVE ) ALCOHOL <0.003 GM/DL ACETAMINOPHEN <2 MCG/ML L (10-30 MCG/ML) SALICYLATE 0.5 MG/DL L (2.8-20.0 MG/DL) Chemistry from 09/04/2014 10:00 PMCOCAINE NEGATIVE (NEG <150 ) PCP NEGATIVE [...] TRICYCLICS NEGATIVE (NEG <300 ) Hematology from 09/04/2014 10:24 PMWBC 11.6 X10e3/UL H (3.6-11.2 X10e3/UL) RBC 4.72 X10e6/UL (3.63-4.92 X10e6/UL) HEMOGLOBIN 14.3 G/DL (11.0-14.3 G/DL) HEMATOCRIT 41.5 % (31.2-41.9 %) MCV 88.0 FL (79.0-98.0 FL) MCH 30.2 PG (27.0-33.0 PG) MCHC 34.3 G/DL (32.0-36.0 G/DL) RDW 11.7 % L (12.3-17.0 %) PLATELET 319 X10e3/UL (159-386 X10e3/UL) MPV 9.4 FL (7.4-10.4 FL) AUTOMATED DIFF PERFORMED SEGS 76.5 % LYMPHOCYTES 16.1 % MONOCYTES 6.0 % EOSINOPHILS 0.8 % BASOPHILS 0.6 % ABSOLUTE NEUTROPHILS 8.8 X10e3/UL H (1.8-7.8 X10e3/UL) ABSOLUTE LYMPHOCYTES 1.9 X10e3/UL (1.0-3.0 X10e3/UL) ABSOLUTE MONOCYTES 0.7 X10e3/UL (0.3-1.0 X10e3/UL) ABSOLUTE EOSINOPHILS 0.1 X10e3/UL (0.0-0.5 X10e3/UL) ABSOLUTE BASOPHILS 0.1 X10e3/UL (0.0-0.2 X10e3/UL) Urinalysis from 09/04/2014 10:00 PM* Status: Final Result URINALYSIS Specimen Number: [id number] Sample Collection Date/Time: 09/04/2014 10:00 PM Specimen Source: URINE COLOR YELLOW (STRAW/YELL/DK YELL ) URINE APPEARANCE CLEAR (CLEAR ) URINE PH 6.0 (5.0-8.0 ) URINE SPECIFIC GRAVITY 1.025 (<=1.005->=1.030 ) URINE GLUCOSE NEGATIVE MG/DL (NEGATIVE MG/DL) URINE BILIRUBIN NEGATIVE (NEGATIVE ) URINE KETONES NEGATIVE MG/DL (NEGATIVE MG/DL) URINE BLOOD NEGATIVE (NEGATIVE ) URINE PROTEIN NEGATIVE MG/DL (NEGATIVE MG/DL) URINE UROBILINOGEN 0.2 EU/DL (0.2-1.0 EU/DL) URINE NITRITES NEGATIVE (NEGATIVE ) *URINE LEUKOCYTES NEGATIVE (NEGATIVE ) Problems Encounter Diagnosis No relevant problems exist. [...]
--- OUTSIDE RECORDS SUMMARY | 2017-01-23 14:53 | XMS REPORT | Continuity Of Care Document ---
Author [facility] Address [address] [place] [address] Phone Care Team Providers Care [employer] Name Role Phone STAN MARIE, W CP [phone] BO MARIE, F AT Results Lab Results Visit/Account #[id number] (January 07, 2016 4:13pm - January 08, 2016 8:38pm) Test Result Date/Time G3AR 47389-4: STYPE ART January 07, 2016 5:41pm 46517-0: PH(7.35-7.45) 7.434 January 07, 2016 5:41pm PCO2(35-45 mmHg) 34.4 mmHg January 07, 2016 5:41pm 78861-4: PO2(80-105 mmHg) 90 mmHg January 07, 2016 5:41pm HCO3(22-26 MMOL/L) 23.0 MMOL/L January 07, 2016 5:41pm TCO2(23-27 MMOL/L) 24 MMOL/L January 07, 2016 5:41pm SO2C(95-98 %) 97 % January 07, 2016 5:41pm 1922-4: ABG BASE DEFICIT(0-30 mmol/L) 1 mmol/L January 07, 2016 5:41pm FIO2(%) 21 % January 07, 2016 5:41pm POCGL POCGL(70-110 MG/DL) 135 MG/DL January 07, 2016 8:44pm 34585-4: COMPLETE BLOOD COUNT WITH DIFF WHITE BLOOD COUNT(4.0-11.0 10E3/UL) 13.5 10E3/UL January 07, 2016 4:53pm RED BLOOD COUNT(4.00-5.20 10E6/UL) 3.77 10E6/UL January 07, 2016 4:53pm HEMOGLOBIN(12.0-16.0 G/DL) 11.3 G/DL January 07, 2016 4:53pm HEMATOCRIT(36.0-46.0 %) 32.9 % January 07, 2016 4:53pm MEAN CORPUSCULAR VOLUME(82.0-100.0 FL) 87.3 FL January 07, 2016 4:53pm 72257-3: MEAN CORPUSCULAR HEMOGLOBIN(26.0-34.0 PG) 30.0 PG January 07, 2016 4:53pm MEAN CORPUSCULAR HGB CONC(31.5-36.5 G/DL) 34.3 G/DL January 07, 2016 4:53pm RED CELL DISTRIBUTION WIDTH(11.5-14.5 %) 12.8 % January 07, 2016 4:53pm 777-3: PLATELET COUNT(150-450 10E3/UL) 248 10E3/UL January 07, 2016 4:53pm MEAN PLATELET VOLUME(8.2-12.4 FL) 11.0 FL January 07, 2016 4:53pm 770-8: NEUTROPHILS % (AUTO)(40-70 %) 86 % January 07, 2016 4:53pm LYMPHOCYTES % (AUTO)(15-45 %) 10 % January 07, 2016 4:53pm 5905-5: MONOCYTES % (AUTO)(2-10 %) 5 % January 07, 2016 4:53pm 713-8: EOSINOPHILS % (AUTO)(0-6 %) 0 % January 07, 2016 4:53pm 706-2: BASOPHILS % (AUTO)(0-1 %) 0 % January 07, 2016 4:53pm 29828-4: IMMATURE GRANS % (AUTO)(0-0 %) 0 % January 07, 2016 4:53pm NUCLEATED RBCS (AUTO)(0-0 %) 0 % January 07, 2016 4:53pm 751-8: NEUTROPHILS # (AUTO)(2.5-7.5 10E3/UL) 11.6 10E3/UL January 07, 2016 4:53pm 05964-2: LYMPHOCYTES # (AUTO)(1.0-4.0 10E3/UL) 1.3 10E3/UL January 07, 2016 4:53pm 742-7: MONOCYTES # (AUTO)(0.2-0.8 10E3/UL) 0.6 10E3/UL January 07, 2016 4:53pm 711-2: EOSINOPHILS # (AUTO)(0.0-0.4 10E3/UL) 0.0 10E3/UL January 07, 2016 4:53pm 704-7: BASOPHILS # (AUTO)(0.0-0.2 10E3/UL) 0.0 10E3/UL January 07, 2016 4:53pm IMMATURE GRANS # (AUTO)(0.0-0.0 10E3/UL) 0.0 10E3/UL January 07, 2016 4:53pm DIFF TYPE AUTOMATED January 07, 2016 4:53pm 777-3: PLATELET COUNT 777-3: PLATELET COUNT(150-450 10E3/UL) 202 10E3/UL January 08, 2016 9:41am 05948-9: ERYTHROCYTE SEDIMENTATION RATE 70701-4: ERYTHROCYTE SEDIMENTATION RATE(0-20 MM/HR) 31 MM/HR January 07, 2016 4:44pm 28816-3: PROTHROMBIN TIME WITH INR PROTHROMBIN TIME(12.1-14.0 SEC) 13.3 SEC January 08, 2016 9:41am 62364-0: INR 1.05 Result Comments: INR reference interval applies to patients on anticoagulant therapy. Suggested INR therapeutic range for oral anticoagulant therapy: (Stabilized anticoagulated patients) Routine Therapy: 2.0 to 3.0 Recurrent Myocardial Infarction: 2.5 to 3.5 Mechanical Prosthetic Valves: 2.5 to 3.5 January 08, 2016 9:41am PARTIAL THROMBOPLASTIN TIME PARTIAL THROMBOPLASTIN TIME(22.2-37.4 SEC) 25.4 SEC January 08, 2016 9:41am UA WITH SCREEN FOR CULTURE 5778-6: COLOR,URINE YELLOW January 07, 2016 6:20pm 22354-7: CLARITY,URINE CLEAR January 07, 2016 6:20pm GLUCOSE, URINE(NEGATIVE MG/DL) NEGATIVE MG/DL January 07, 2016 6:20pm URINE BILIRUBIN(NEGATIVE) NEGATIVE January 07, 2016 6:20pm 18423-9: KETONES,URINE(NEGATIVE MG/DL) NEGATIVE MG/DL January 07, 2016 6:20pm 2965-2: URINE SPECIFIC GRAVITY(1.001-1.035) 1.020 January 07, 2016 6:20pm 12978-0: URINE BLOOD(NEGATIVE) NEGATIVE January 07, 2016 6:20pm 2756-5: URINE PH(5.0-9.0) 6.0 January 07, 2016 6:20pm URINE PROTEIN(Less than 20 MG/DL) NEGATIVE MG/DL January 07, 2016 6:20pm URINE UROBILINOGEN(0.2-1.0 MG/DL) 0.2 MG/DL January 07, 2016 6:20pm URINE NITRITE(NEGATIVE) NEGATIVE January 07, 2016 6:20pm 5799-2: LEUKOCYTE ESTERASE ,URINE(NEGATIVE) NEGATIVE January 07, 2016 6:20pm 630-4: URINE CULTURE NOT INDICATED January 07, 2016 6:20pm URINE MICROSCOPIC REQUIRED NO January 07, 2016 6:20pm 91731-2: COMPLETE METABOLIC PROFILE GLUCOSE(70-110 MG/DL) 102 MG/DL January 07, 2016 4:53pm BLOOD UREA NITROGEN(6-20 MG/DL) 15 MG/DL January 07, 2016 4:53pm CREATININE(0.50-1.20 MG/DL) 0.71 MG/DL January 07, 2016 4:53pm 37418-3: EST GLOMERULAR FILTRATION RATE(Greater than or equal to 60) Greater than or equal to 60 Result Comments: If the patient is of -Mal[place] descent/extraction multiply the eGFR value by 1.212 to obtain the actual eGFR. >=60 mg/dL Normal 30-59 mg/dL Moderate Kidney Disease 15-29 mg/dL Severe Kidney Disease <15 mg/dL Kidney Failure January 07, 2016 4:53pm BUN CREATININE RATIO(10.0-20.0 RATIO) 21.0 RATIO January 07, 2016 4:53pm SODIUM(135-145 MMOL/L) 138 MMOL/L January 07, 2016 4:53pm POTASSIUM(3.6-5.0 MMOL/L) 3.7 MMOL/L January 07, 2016 4:53pm CHLORIDE(101-111 MMOL/L) 108 MMOL/L January 07, 2016 4:53pm 2027-9: CO2(21-31 MMOL/L) 22 MMOL/L January 07, 2016 4:53pm ANION GAP(8-18) 12 January 07, 2016 4:53pm OSMO CALCULATED(270.0-290.0) 276.7 January 07, 2016 4:53pm CALCIUM(8.5-10.5 MG/DL) 8.2 MG/DL January 07, 2016 4:53pm BILIRUBIN,TOTAL(0.1-1.2 MG/DL) 0.4 MG/DL January 07, 2016 4:53pm ALKALINE PHOSPHATASE(42-121 IU/L) 39 IU/L January 07, 2016 4:53pm ASPARTATE AMINO TRANSFERASE(14-37 IU/L) 23 IU/L January 07, 2016 4:53pm ALANINE AMINOTRANSFERASE(8-29 IU/L) 28 IU/L January 07, 2016 4:53pm TOTAL PROTEIN(6.4-8.2 G/DL) 7.0 G/DL January 07, 2016 4:53pm ALBUMIN(3.5-5.5 G/DL) 3.3 G/DL January 07, 2016 4:53pm GLOBULIN(2.4-3.6) 3.7 January 07, 2016 4:53pm ALBUMIN/GLOBULIN RATIO(0.9-1.8 RATIO) 0.9 RATIO January 07, 2016 4:53pm TOTAL CPK TOTAL CPK(95-237 IU/L) 41 IU/L January 07, 2016 4:53pm PROLACTIN PROLACTIN(SEE BELOW NG/ML) 18.09 NG/ML Result Comments: REFERENCE RANGES: FEMALE PRE-MENOPAUSAL 3.34-26.72 NG/ML FEMALE POST-MENOPAUSAL 2.74-19.64 NG/ML January 07, 2016 4:53pm GLUCOSE, CSF GLUCOSE, CSF(40-70 MG/DL) 50 MG/DL January 08, 2016 12:06pm TOTAL PROTEIN, CSF TOTAL PROTEIN, CSF(15-45 MG/DL) 9 MG/DL January 08, 2016 12:06pm 38610-8: CRYPTOCOCCUS ANTIGEN CSF CRYPTOCOCCUS ANTIGEN.CSF(NEGATIVE) NEGATIVE January 08, 2016 12:06pm SERUM HCG, QUALITATIVE 2110-5: SERUM HCG, QUALITATIVE(NEGATIVE) NEGATIVE January 07, 2016 4:54pm 42722-2: CSF CELL COUNT W/ DIFF 94213-8: CSF COLOR COLORLESS January 08, 2016 12:06pm 91139-3: CSF CLARITY CLEAR January 08, 2016 12:06pm 66855-1: CSF WBC (MANUAL)(0-5 /MM3) 0 /MM3 January 08, 2016 12:06pm 49536-7: CSF RBC (MANUAL)(/MM3) 0 /MM3 January 08, 2016 12:06pm CSF LYMPHOCYTES(40-80 %) 98 % January 08, 2016 12:06pm CSF MONOCYTES(15-45 %) 2 % January 08, 2016 12:06pm 71607-2: LEVETIRACETAM 64651-6: LEVETIRACETAM(6.0-46.0 UG/ML) 16.4 UG/ML Result Comments: THE REFERENCE RANGE LISTED SHOULD ONLY IMPLY A LOWER LIMIT BELOW WHICH A THERAPEUTIC RESPONSE IS RELATIVELY UNLIKELY TO OCCUR, AND AN UPPER LIMIT ABOVE WHICH TOXICITY IS RELATIVELY LIKELY TO OCCUR. January 07, 2016 4:53pm VDRL, CSF VDRL, CSF(Non [place]onder[place]:<1:1) Non Reactive Result Comments: Performed at: - [facility] [id number] Derivatives Trader: Inocente Matias MD, Phone: [phone] January 08, 2016 12:06pm CIARA W/REFLEX ANINUCLEAR ANTIBODIES DIRECT(Negative) Negative Result Comments: Performed at: - [facility] [id number] Derivatives Trader: GINA Avila MD, Phone: [phone] January 07, 2016 4:44pm Microbiology Results Visit/Account #[id number] (January 07, 2016 4:13pm - January 08, 2016 8:38pm) Procedure Result 611-4: CULTURE BODY FLUID 611-4: CULTURE BODY FLUID Result Instance On January 08, 2016 12:06pm Source: CEREBRAL SPINAL FLUID Special Result Comments: No growth 27396-4: BODY FLUID GRAM STAIN 58299-4: BODY FLUID GRAM STAIN Result Instance On January 08, 2016 12:06pm Source: CEREBRAL SPINAL FLUID Result Prompts: WBC/OIF 0-1 BACTERIA SEEN NO ORGANISM SEEN COMMENTS PERFORMED ON CYTOSPIN SLIDE Allergies and Adverse Reactions Allergies and Adverse Reactions Patient Unit Number: [id number] Agent Type Reaction Severity Status PENICILLINS Drug Allergy Unknown Unknown Active MORPHINE Drug Allergy Unknown Mild Active Problem List Problem List Visit/Account #[id number] (January 07, 2016 4:13pm - January 08, 2016 8:38pm) Acute Problems: Code/Condition Comments Documented Start Date Documented Resolved Date Code (s) Bipolar disorder, curr episode mixed, severe, w/o psychotic ICD10: F31.63 Bipolar disorder, current episode mixed, severe, without psychotic features ICD9: 296.63 Bipolar disorder, current episode mixed, severe, without psychotic features SNOMED: 776458717 Bipolar disorder, current episode mixed, severe, without psychotic features Syncope ICD10: R55 Syncope ICD9: 780.2 Syncope SNOMED: 594394886 Syncope Seizure ICD10: R56.9 Seizure ICD9: 780.39 Seizure SNOMED: 37323408 Seizure Plan of Care Plan Of Care No Plan Of Care Data. Vital Signs Vital Signs Visit/Account #[id number] (January 07, 2016 4:13pm - January 08, 2016 8:38pm) Sign First Result Last Result Code(s) Blood Pressure 148/ 72 mm[Hg] On January 07, 2016 4:29pm 112/ 67 mm[Hg] On January 08, 2016 5:15pm 8480-6 BP Systolic Heart Rate/Pulse Pulse Rate (adult): 74 /min On January 07, 2016 4:29pm Pulse Rate (adult): 79 /min On January 08, 2016 5:15pm 8867-4 Heart Rate 8893-0 Pulse rate Respiratory Rate Respiratory Rate: 18 /min On January 07, 2016 4:29pm Respiratory Rate: 16 /min On January 08, 2016 5:15pm 9279-1 Respiratory rate Temperature in Fahrenheit Temperature (Fahrenheit): 98.2 [degF] On January 07, 2016 4:29pm Temperature (Fahrenheit): 97.8 [degF] On January 08, 2016 5:15pm 8310-5 Body Temperature Functional Status Functional and Cognitive Status No Functional Status Data Medications Home Medications - Medications that the patient was taking prior to arrival at the hospital Visit/Account #[id number] (January 07, 2016 4:13pm - January 08, 2016 8:38pm) Medication Route Sig/Schedule Precondition/Indication Comments/Instructions Codes KEPPRA(LevETIRAcetam) 500 MG TABLET Dose: 500 MG ORAL TWICE A DAY Rx Instructions: last filled 08/11/15 per [facility]. Patient reported filling at [facility], but they haven't filled anything for her since April of last year either. Levetiracetam 500 MG Oral Tablet [Keppra] (RxNorm): 597231 KEPPRA (LevETIRAcetam) NDC: 08010825838 TOPROL XL(METOPROLOL SUCCINATE) 50 MG TAB Dose: 50 MG ORAL DAILY Rx Instructions: last filled 08/11/15 per [facility]. Patient reported filling at [facility], but they haven't filled anything for her since April of last year either. 24 HR metoprolol succinate 50 MG Extended Release Oral Tablet [Toprol] (RxNorm ): 851201 TOPROL XL (METOPROLOL SUCCINATE) NDC: 54959120282 Tri-Sprintec(NORGESTIMATE-ETHINYL ESTRADIOL) 1 EACH TABLET Dose: 1 TAB ORAL DAILY {7 (Ethinyl Estradiol 0.035 MG / norgestimate 0.18 MG Oral Tablet) / 7 ( Ethinyl Estradiol 0. (RxNorm): 999175 Tri-Sprintec (NORGESTIMATE-ETHINYL ESTRADIOL) NDC: 21055519097 LATUDA(LURASIDONE HCL) 40 MG TAB Dose: 40 MG ORAL DAILY WITH SUPPER Lurasidone Hydrochloride 40 MG Oral Tablet [Latuda] (RxNorm): 6136312 LATUDA (LURASIDONE HCL) NDC: 30227099760 ZYPREXA(OLANZapine) 2.5 MG TABLET Dose: 2.5 MG ORAL TWICE A DAY ANXIETY/AGITATION olanzapine 2.5 MG Oral Tablet [Zyprexa] (RxNorm): 446155 ZYPREXA (OLANZapine) NDC: 99960185065 DESYREL(TraZODone HCL) 50 MG TABLET Dose: 25 MG ORAL AT BEDTIME INSOMNIA Trazodone Hydrochloride 50 MG Oral Tablet (RxNorm): 367209 DESYREL (TraZODone HCL) NDC: 97476216718 KEPPRA(LevETIRAcetam) 1000 MG TABLET Dose: 1000 MG ORAL TWICE A DAY Levetiracetam 1000 MG Oral Tablet [Keppra] (RxNorm): 079707 KEPPRA (LevETIRAcetam) NDC: 98612731757 KEPPRA(LevETIRAcetam) 1000 MG TABLET Dose: 1000 MG ORAL TWICE A DAY Rx Instructions: *ER RX 01/05/16* Levetiracetam 1000 MG Oral Tablet [Keppra] (RxNorm): 752436 KEPPRA (LevETIRAcetam) NDC: 49877318772 BENADRYL(DiphenhydrAMINE HCL) 25 MG CAP Dose: 25 MG ORAL EVERY 6 HOURS ITCHING Diphenhydramine Hydrochloride 25 MG Oral Capsule (RxNorm): 2702360 BENADRYL (DiphenhydrAMINE HCL) NDC: 64092348501 DELTASONE(PredniSONE) 20 MG TAB Dose: 20 MG ORAL TWICE A DAY FOR 5 DAYS Rx Instructions: ER RX 01/05/16 Prednisone 20 MG Oral Tablet (RxNorm): 238678 DELTASONE (PredniSONE) NDC: 83687275718 Artificial Tears(DEXTRAN 70/HYPROMELLOSE/PF) 1 DRP DROPERETTE Dose: 1 DROP EACH EYE NEEDED DRY EYES Artificial Tears (DEXTRAN 70/HYPROMELLOSE/PF) NDC: 73646547107 TYLENOL(ACETAMINOPHEN) 325 MG TAB Dose: 325-650 MG ORAL Q6H MILD PAIN Acetaminophen 325 MG Oral Tablet (RxNorm): 041503 TYLENOL (ACETAMINOPHEN) NDC: 01579603189 Inpatient/Ordered Medications - Medications administered during hospital visit Visit/Account #[id number] (January 07, 2016 4:13pm - January 08, 2016 8:38pm) Medication Route Sig/Schedule Precondition/Indication Comments/Instructions Codes TYLENOL(ACETAMINOPHEN) 325 MG TAB Dose: 0 MG ORAL Q6H PRN Reason: MILD PAIN Label Comments: Do not exceed 4000 mg/24 hours. Special Dose Instructions: 325 - 650 MG Acetaminophen 325 MG Oral Tablet (RxNorm): 825274 TYLENOL (ACETAMINOPHEN) NDC: 25618290547 IV Medication Carriers: NORMAL SALINE(SODIUM CHLORIDE) 1000 ML INJECTION Dose: 1000 ML INTRAVEN .Q8H (Rate: 125 MLS/HR Duration: 8 HR) Carriers: Sodium Chloride 0.154 MEQ/ML Injectable Solution (RxNorm): 550910 NORMAL SALINE (SODIUM CHLORIDE) NDC: 37322594077 LATUDA(LURASIDONE HCL) 40 MG TAB Dose: 40 MG ORAL DAILY WITH SUPPER Label Comments: GIVE WITH FOOD Lurasidone Hydrochloride 40 MG Oral Tablet [Latuda] (RxNorm): 9114118 LATUDA (LURASIDONE HCL) NDC: 17629458032 ZOFRAN INJ(ONDANSETRON HCL) 4 MG/2 ML INJECTION Dose: 2 ML INTRAVEN EVERY 4 HOURS PRN Reason: NAUSEA/VOMITING Label Comments: SLOW IV PUSH MAY INCREASE FALL RISK Ondansetron 2 MG/ML Injectable Solution (RxNorm): 055411 ZOFRAN INJ (ONDANSETRON HCL) NDC: 70156796293 IV Medication Additives: PHENERGAN INJ(PROMETHAZINE HCL) 25 MG/ML INJECTION Dose: 25 MG Carriers: SODIUM CHLORIDE 100 ML INJECTION Dose: 100 ML INTRAVEN NOW (Rate: 404 MLS/HR Duration: 15 MIN) Additives: Promethazine Hydrochloride 25 MG/ML Injectable Solution (RxNorm): 527691 PHENERGAN INJ (PROMETHAZINE HCL) NDC: 48470701947 Carriers: Sodium Chloride 0.154 MEQ/ML Injectable Solution (RxNorm): 687192 (SODIUM CHLORIDE) NDC: 13884044539 Discharge Medications - Medications that patient should continue to take. Review with physician Visit/Account #[id number] (January 07, 2016 4:13pm - January 08, 2016 8:38pm) Medication Route Sig/Schedule Precondition/Indication Comments/Instructions Codes TOPROL XL(METOPROLOL SUCCINATE) 50 MG TAB Dose: 50 MG ORAL DAILY Rx Instructions: last filled 08/11/15 per [facility]. Patient reported filling at [facility], but they haven't filled anything for her since April of last year either. 24 HR metoprolol succinate 50 MG Extended Release Oral Tablet [Toprol] (RxNorm ): 274275 TOPROL XL (METOPROLOL SUCCINATE) NDC: 91493439236 Tri-Sprintec(NORGESTIMATE-ETHINYL ESTRADIOL) 1 EACH TABLET Dose: 1 TAB ORAL DAILY {7 (Ethinyl Estradiol 0.035 MG / norgestimate 0.18 MG Oral Tablet) / 7 ( Ethinyl Estradiol 0. (RxNorm): 695245 Tri-Sprintec (NORGESTIMATE-ETHINYL ESTRADIOL) NDC: 14718014997 LATUDA(LURASIDONE HCL) 40 MG TAB Dose: 40 MG ORAL DAILY WITH SUPPER Lurasidone Hydrochloride 40 MG Oral Tablet [Latuda] (RxNorm): 8612554 LATUDA (LURASIDONE HCL) NDC: 82963876254 ZYPREXA(OLANZapine) 2.5 MG TABLET Dose: 2.5 MG ORAL TWICE A DAY ANXIETY/AGITATION olanzapine 2.5 MG Oral Tablet [Zyprexa] (RxNorm): 104511 ZYPREXA (OLANZapine) NDC: 42624805628 Artificial Tears(DEXTRAN 70/HYPROMELLOSE/PF) 1 DRP DROPERETTE Dose: 1 DROP EACH EYE NEEDED DRY EYES Artificial Tears (DEXTRAN 70/HYPROMELLOSE/PF) NDC: 68896208010 TYLENOL(ACETAMINOPHEN) 325 MG TAB Dose: 325-650 MG ORAL Q6H MILD PAIN Acetaminophen 325 MG Oral Tablet (RxNorm): 461264 TYLENOL (ACETAMINOPHEN) NDC: 27563012383 History Of Encounters Encounters Visit/Account #[id number] (January 07, 2016 4:13pm - January 08, 2016 8:38pm) Account Status Physican Of Record Reason For Visit Visit Diagnosis Start Date/Time Stop Date/Time Fela ARJUN SORIANO MD SEIZURE R55: SYNCOPE AND COLLAPSE ICD10 Jan 07, 2016 4:13pm Jan 08, 2016 8:38pm History of Procedures Procedure List No procedures recorded. Discharge Instructions Discharge Instructions Visit/Account #[id number] (January 07, 2016 4:13pm - January 08, 2016 8:38pm) DISCHARGE INSTRUCTIONS Physician Documentation PROVIDER INSTRUCTIONS Discharge Diet As Tolerated Discharge Activity/Weight Bearing Status As tolerated Other Discharge Instructions May return to work on Friday, January 10, 2016. REASON TO CALL PROVIDER Notify Physician if: More blackout spells or other problems FOLLOW UP APPOINTMENTS Follow Up With Dr. Yang as needed. Contact Dr. Walker's office to schedule outpatient followup at [phone]. She may want to schedule a sleep study or a repeat MRI of your thoracic spine with contrast. Follow-up tests/procedures/outpatient needs: As above Social History Social History No Social History Data. Immunizations Immunizations Patient Unit Number: [id number] Immunizations No immunizations recorded.
--- OUTSIDE RECORDS SUMMARY | 2017-01-23 14:53 | XMS REPORT | Continuity of Care Document ---
Author Author [facility] Organization [facility] Address Unknown Phone Unavailable Care Team Providers Care Hand Dry Cleaner Name Role Phone Alexy Yang MD Primary Care Physician [phone] Insurance Providers Payer Name Policy Number Subscriber Name Relationship [facility]ly [facility] [id number] Mary Christensen 19 Self / Same As Patient Chief Complaint and Reason for Visit Chief Complaint GI Complaint Reason for Visit Abdominal pain [id number] Problems Medical Problems Problem Onset Date Status Nausea & vomiting ~05/21/2014 Active Anger reaction Unknown Active Cluster headache Unknown Active Abdominal pain Unknown Active Medications Medication Dose Route Sig Days/Qty Instructions Order Date Discontinued Date Status [ Controll] 1 Tab DAILY 05/21/14 09/04/14 Discontinued Alprazolam 0.25 Mg ORAL NEEDED 05/21/14 09/04/14 Discontinued Venlafaxine Hcl 150 Mg ORAL DAILY AT HS 09/04/14 Active Ciprofloxacin Hcl 250 Mg ORAL TWICE A DAY For Urinary tract infection 09/04/14 01/06/15 Discontinued Norgestimate-Ethinyl Estradiol 1 Each ORAL DAILY 09/04/14 Active Trazodone Hcl 100 Mg ORAL BEDTIME 01/06/15 Active Hydroxyzine HCl 25 Mg ORAL NEEDED 01/06/15 Active Social History No social history. Hospital Discharge Instructions No hospital discharge instructions. Plan of Care Discharge Date 01/13/15 12:45am Disposition 01 HOME OR SELF-CARE Condition at Discharge Stable Instructions/Education Provided Acute Nausea and Vomiting (ED) Prescriptions See Medications Section Referrals Alexy Yang MD Additional Instructions/Education clear liquid diet. Return to ER as needed. Follow up with primary care doctor tomorrow. Some of your test results may not [...] worrisome symptoms. * Emergency Department phone number: [phone], x [phone]* MEDICAL RECORD If you need copies of your X-rays, call [phone] x [phone]. If you need copies of [...] the billing parties for services. SERVICE BILLING LIBERTARIAN Emergency Room Services [facility] Physician Services [facility] X-[facility] [place] [facility] Patients will receive bills for services from the appropriate provider. If you have any questions about your [facility] bill, our staff will be happy to assist you. Please call [phone], and ask for the billing department. THANK YOU for choosing [facility] as your emergency care provider! Functional Status No functional status results. Allergies, Adverse Reactions, Alerts Allergen Type Severity Reaction Status Last Updated Morphine Allergy Unknown Active 01/06/15 Immunizations No immunization records. Vital Signs Acute Vital Signs Vital Response Date/Time Temperature (Fahrenheit) 97.6 Pulse 97 bpm Respirations 18 Height 5 ft 4 in Weight 253 lb Body Mass Index 43.0 kg/m^2 Results Test Source Date Result Interp. Ref. Range Comments Acetaminophen Level September 04, 2014 4:52pm < 10.0 UG/ML L 10.0-30.0 Alanine Aminotransferase (ALT/SGPT) January 12, 2015 10:50pm 18 U/L L 30- 65 Albumin January 12, 2015 10:50pm 4.5 g/dL N 3.4-5.0 Albumin/Globulin Ratio January 12, 2015 10:50pm 1.285 N 1.1-1.8 Alkaline Phosphatase January 12, 2015 10:50pm 59 U/L N 38-126 Anion Gap January 12, 2015 10:50pm 13.4 MEQ/L N 3-15 Aspartate Amino Transf (AST/SGOT) January 12, 2015 10:50pm 24 U/L N 15-37 BUN/Creatinine Ratio January 12, 2015 10:50pm 24 H 10-20 Basophils # (Auto) January 12, 2015 10:50pm 0.1 10^3uL Basophils (%) (Auto) January 12, 2015 10:50pm 1 % N 0-2 Blood Urea Nitrogen January 12, 2015 10:50pm 23 mg/dL H 7-18 Calcium Level January 12, 2015 10:50pm 10.1 mg/dL N 8.8-10.8 Calcium/Ionized Calcium Ratio January 12, 2015 10:50pm 4.2 mg/dL N 3.8- 4.6 Calculated Osmolality January 12, 2015 10:50pm 275 mosm/L L 280-300 Carbon Dioxide Level January 12, 2015 10:50pm 30 mmol/L H 22-29 Chloride Level January 12, 2015 10:50pm 102 mmol/L N 98-108 Codeine Confirmation December 22, 2014 12:01pm Not detected ng/mL () Qpwczx=910 ng/mL Creatinine January 12, 2015 10:50pm 0.94 mg/dL N 0.6-1.2 Eosinophils # (Auto) January 12, 2015 10:50pm 0.2 10^3uL Eosinophils (%) (Auto) January 12, 2015 10:50pm 2 % N 0-4 Estimat Glomerular Filtration Rate January 12, 2015 10:50pm 93.8 Estimated GFR (Non- January 12, 2015 10:50pm 77.6 Glucose Level January 12, 2015 10:50pm 87 mg/dL N 70-110 Hematocrit January 12, 2015 10:50pm 39.20 % N 35.00-45.00 Hemoglobin January 12, 2015 10:50pm 13.7 g/dL N 12.0-15.5 Lymphocytes # (Auto) January 12, 2015 10:50pm 2.2 X10^3 Lymphocytes (%) (Auto) January 12, 2015 10:50pm 24 % N 20-46 Mean Corpuscular Hemoglobin January 12, 2015 10:50pm 30.1 PG N 26.0-34.0 Mean Corpuscular Hemoglobin Concent January 12, 2015 10:50pm 34.9 g/dL N 31.0-37.0 Mean Corpuscular Volume January 12, 2015 10:50pm 86 FL N 80-100 Mean Platelet Volume January 12, 2015 10:50pm 10.8 FL H 6.0-9.5 Monocytes # (Auto) January 12, 2015 10:50pm 0.8 X10^3 Monocytes (%) (Auto) January 12, 2015 10:50pm 8 % N 3-11 Neutrophils # (Auto) January 12, 2015 10:50pm 5.9 X10^3 Neutrophils (%) (Auto) January 12, 2015 10:50pm 65 % N 51-67 Platelet Count January 12, 2015 10:50pm 295 10^3uL N 150-450 Potassium Level January 12, 2015 10:50pm 4.3 mmol/L N 3.5-5.1 Red Blood Count January 12, 2015 10:50pm 4.55 10^6uL N 4.00-5.00 Red Cell Distribution Width January 12, 2015 10:50pm 12.5 % N 11.8-15.6 Salicylates Level September 04, 2014 4:52pm < 1.0 MG/DL L 2.0-20.0 Serum Alcohol September 04, 2014 4:52pm < 10.0 mg/dL L 10-80 Sodium Level January 12, 2015 10:50pm 141 mmol/L N 135-150 Thyroid Stimulating Hormone (TSH) January 12, 2015 3:35pm 0.69 UIU/ML N 0.46-4.68 Total Bilirubin January 12, 2015 10:50pm 0.5 mg/dL N 0.1-1.0 Total Protein January 12, 2015 10:50pm 8.0 g/dL N 6.4-8.5 Ur Tricyclic Antidepressants Screen December 22, 2014 12:01pm Negative Negative Urine Amphetamines Screen December 22, 2014 12:01pm Negative Negative Urine Bacteria January 12, 2015 11:05pm None seen /HPF Urine collection method Clean Catch Urine Barbiturates Screen December 22, 2014 12:01pm Negative Negative Urine Benzodiazepines Screen December 22, 2014 12:01pm Negative Negative Urine Bilirubin January 12, 2015 11:05pm Negative Negative Urine collection method Clean Catch Urine Blood May 21, 2014 11:23pm Trace-intact H Negative Urine collection method Clean Catch Urine Cannabinoids Screen December 22, 2014 12:01pm Negative Negative Urine Clarity January 12, 2015 11:05pm Slightly cloudy Urine collection method Clean Catch Urine Cocaine Screen December 22, 2014 12:01pm Negative Negative Urine Collection Type January 12, 2015 11:05pm Clean catch Urine collection method Clean Catch Urine Color January 12, 2015 11:05pm Yellow Urine collection method Clean Catch Urine Glucose (UA) January 12, 2015 11:05pm Negative Negative Urine collection method Clean Catch Urine Hydrocodone Confirmation December 22, 2014 12:01pm Not detected ng/mL () Tfnohu=839 ng/mL Urine Hydromorphone Confirmation December 22, 2014 12:01pm Not detected ng/ mL () Cutoff: 100 ng/mL Urine Ketones January 12, 2015 11:05pm Negative Negative Urine collection method Clean Catch Urine Leukocyte Esterase January 12, 2015 11:05pm Negative Negative Urine collection method Clean Catch Urine Methadone Screen December 22, 2014 12:01pm Negative Negative Urine Methamphetamines Screen December 22, 2014 12:01pm Negative NEGATIVE Urine Morphine Confirmation December 22, 2014 12:01pm Not detected ng/mL () Zdwxqt=622 ng/mL Urine Nitrite January 12, 2015 11:05pm Negative Negative Urine collection method Clean Catch Urine Opiates Screen December 22, 2014 12:01pm Positive H Negative Urine Oxycodone Screen December 22, 2014 12:01pm Negative NEGATIVE Urine Phencyclidine (PCP) Confirm December 22, 2014 12:01pm Not detected ng/ mL () Interpretation Guide for Phencyclidine (PCP) Results:- The Substance Abuse and Mental Health Services Administration, Division of Workplace Programs, has established the cutoff for PCP confirmation at 25 ng/ml. Results below this cutoff are considered "Not Detected" for workplace related testing or for revoking parole. Urine Phencyclidine Screen December 22, 2014 12:01pm [...] confirmation of results is indicated. Urine Protein January 12, 2015 11:05pm Negative Negative Urine collection method Clean Catch Urine RBC January 12, 2015 11:05pm 2-5 /HPF Urine collection method Clean Catch Urine RBC (Auto) January 12, 2015 11:05pm 1+ H Negative Urine collection method Clean Catch Urine Specific [place] January 12, 2015 11:05pm >=1.030 1.005-1.030 Urine collection method Clean Catch Urine Squamous Epithelial Cells January 12, 2015 11:05pm 5-10 /LPF Urine collection method Clean Catch Urine Urobilinogen January 12, 2015 11:05pm 0.2 mg/dL 0.2-1.0 Urine collection method Clean Catch Urine WBC January 12, 2015 11:05pm 0-2 /HPF Urine collection method Clean Catch Urine pH January 12, 2015 11:05pm 6.0 5.0 - 8.0 Urine collection method Clean Catch Volume Urine Centrifuged January 12, 2015 11:05pm 12 ml Urine collection method Clean Catch White Blood Count January 12, 2015 10:50pm 9.15 10^3uL N 4.0-11.0 Procedures Procedure Status Date Provider(s) HYDRATE IV INFUSION ADD-ON completed 01/06/15 THER/PROPH/DIAG INJ IV PUSH completed 01/06/15 TX/PRO/DX INJ NEW DRUG ADDON completed 01/06/15 EMERGENCY DEPT VISIT completed 01/06/15 completed 01/06/15 completed 01/06/15 completed 01/06/15 Encounters Encounter Location Date/Time Departed Emergency Room [facility] 01/12/15 8:44pm Registered Clinic [facility] 01/12/15 3:49pm Departed Emergency Room [facility] 01/06/15 8:37pm Recent Diagnosis
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
--- OUTSIDE RECORDS SUMMARY | 2017-01-23 14:53 | XMS REPORT | Referral Summary ---
Author Author [facility] Organization [facility] Address Unknown Phone Unavailable Care Team Providers Care Dance Teacher Name Role Phone Jeff Yang Primary Care Physician [phone] Encounter VC Date(s): 06/02/15 - 06/02/15 [facility] [address] [place] [address]- Final: NAUSEA WITH VOMITING Final: DIARRHEA Final: Urgency of urination Discharge Disposition: Against Medical Advice Attending Physician: Igor Ramon DO Admitting Physician: Igor Ramon DO Vital Signs Most recent to 1 oldest [Reference Range]: Temperature Oral 36.7 degC [35.8-37.3 degC] (06/02/15 6:41 PM) Peripheral Pulse 78 bpm Rate [60-100 bpm] (06/02/15 9:12 PM) Heart Rate Monitored 107 bpm [60-100 bpm] *HI* (06/02/15 8:43 PM) Respiratory Rate 16 br/min [14-20 br/min] (06/02/15 9:12 PM) Blood Pressure 107/58 mmHg [90-140/60-90 mmHg] (06/02/15 9:12 PM) Mean Arterial 73 mmHg Pressure, Cuff (06/02/15 8:43 PM) SpO2 95 % (06/02/15 9:12 PM) Problem List Condition Effective Dates Status [...] Refill(s) Start Date: 05/16/15 Status: Ordered Results Hematology Most recent to 1 oldest [Reference Range]: WBC [4.8-10.8 9.8 10*3/uL 10*3/uL] (06/02/15 7:05 PM) RBC [4.00-5.20 4.60 10*6/uL 10*6/uL] (06/02/15 7:05 PM) Hgb [12.0-16.0 13.9 gm/dL gm/dL] (06/02/15 7:05 PM) Hct [37.0-47.0 %] 38.7 % (06/02/15 7:05 PM) MCV [82.0-99.0 fL] 84.1 fL (06/02/15 7:05 PM) MCH [27.0-32.0 pg] 30.2 pg (06/02/15 7:05 PM) MCHC [32.0-36.0 35.9 gm/dL gm/dL] (06/02/15 7:05 PM) RDW [11.5-14.5 %] 13.0 % (06/02/15 7:05 PM) Platelet [150-400 314 10*3/uL 10*3/uL] (06/02/15 7:05 PM) MPV [9.4-12.4 fL] 10.6 fL (06/02/15 7:05 PM) Immature 0.3 % Granulocytes (06/02/15 7:05 PM) [0.0-1.0 %] Neutrophils [51-75 66 % %] (06/02/15 7:05 PM) Lymphocytes [20-46 23 % %] (06/02/15 7:05 PM) Monocytes [4-11 %] 8 % (06/02/15 7:05 PM) Eosinophils [0-4 %] 3 % (06/02/15 7:05 PM) Basophils [0-2 %] 1 % (06/02/15 7:05 PM) Neutro Absolute 6.48 10*3 [1.90-7.00 10*3] (06/02/15 7:05 PM) Lymph Absolute 2.22 10*3 [0.80-3.30 10*3] (06/02/15 7:05 PM) Ceiba Absolute 0.78 10*3 [0.30-1.00 10*3] (06/02/15 7:05 PM) Eos Absolute 0.28 10*3 [0.00-0.50 10*3] (06/02/15 7:05 PM) Baso Absolute 0.05 10*3 [0.00-0.20 10*3] (06/02/15 7:05 PM) Chemistry Most recent to 1 oldest [Reference Range]: Sodium Lvl [136-144 137 mEq/L mEq/L] (06/02/15:05 PM) Potassium Lvl 4.0 mEq/L [3.6-5.1 mEq/L] (06/02/15 7:05 PM) Chloride [99-109 105 mEq/L mEq/L] (06/02/15 7:05 PM) CO2 [22-32 mEq/L] 26 mEq/L (06/02/15 7:05 PM) AGAP [3-20] 6 (06/02/15:05 PM) BUN [4-20 mg/dL] 11 mg/dL (06/02/15 7:05 PM) Glucose Lvl [70-100 92 mg/dL mg/dL] (06/02/15:05 PM) Creatinine Lvl 0.94 mg/dL [0.44-1.03 mg/dL] (06/02/15 7:05 PM) eGFR [>60] >60 1 (06/02/15:05 PM) Calcium Lvl 9.4 mg/dL [8.6-10.0 mg/dL] (06/02/15 7:05 PM) Albumin Lvl [3.5-4.8 4.0 gm/dL gm/dL] (06/02/15 7:05 PM) Total Protein 8.0 gm/dL [6.1-7.9 gm/dL] *HI* (06/02/15 7:05 PM) Globulin [1.9-4.3 4.0 gm/dL gm/dL] (06/02/15 7:05 PM) ALT [14-54 U/L] 108 U/L *HI* (06/02/15 7:05 PM) AST [15-41 U/L] 49 U/L *HI* (06/02/15 7:05 PM) Alk Phos [26-104 79 U/L U/L] (06/02/15 7:05 PM) Bili Total [0.2-1.2 1.0 mg/dL 2 mg/dL] (06/02/15 7:05 PM) Lipase Lvl [8-48 29 U/L U/L] (06/02/15 7:05 PM) 1Result Comment: Multiply eGFR results by 1.21 for race. 2Result Comment: Naproxen, specifically the metabolite O-desmethylnaproxen, may cause spurious elevation in Total Bilirubin levels. Urinalysis Most recent to 1 oldest [Reference Range]: UA Color Yellow (06/02/15 7:05 PM) UA Appear Clear (06/02/15 7:05 PM) UA pH [5.0-8.0] 7.0 (06/02/15 7:05 PM) UA Leuk Est Negative [Negative] (06/02/15 7:05 PM) UA Nitrite Negative [Negative] (06/02/15 7:05 PM) UA Protein Negative [Negative] (06/02/15 7:05 PM) UA Glucose Negative [Negative] (06/02/15 7:05 PM) UA Ketones Negative [Negative] (06/02/15 7:05 PM) UA Urobilinogen Negative [<1.0] (06/02/15 7:05 PM) UA Bili [Negative] Negative (06/02/15 7:05 PM) UA Blood [Negative] Negative (06/02/15 7:05 PM) UA Spec Grav 1.023 [1.003-1.030] (06/02/15 7:05 PM) Type Clean Catch (06/02/15 7:05 PM) Immunizations Vaccine Date Refusal Reason human papillomavirus vaccine 04/09/10 Procedures Procedure Date Related Diagnosis Body Site Tonsillectomy Social History Social History Type Response Smoking Status Never smoker Assessment and Plan No data available for this section
--- OUTSIDE RECORDS SUMMARY | 2017-01-23 14:53 | XMS REPORT | Continuity of Care Document ---
Author Author [facility] Organization [facility] Address Unknown Phone Unavailable Care Team Providers Care Brand Marketing Coordinator Name Role Phone Alexy Yang MD Primary Care Physician [phone] Insurance Providers Payer Name Policy Number Subscriber Name Relationship Self Pay [place] 18 Self / Same As Patient Chief Complaint and Reason for Visit Chief Complaint Cardiac Complaint Reason for Visit Chest wall pain Problems Medical Problems Problem Onset Date Status Nausea & vomiting ~05/21/2014 Active Anger reaction Unknown Active Cluster headache Unknown Active Abdominal pain Unknown Active Chest wall pain Unknown Active Medications Medication Dose Route Sig Days/Qty Instructions Order Date Discontinued Date Status [ Controll] 1 Tab DAILY 05/21/14 09/04/14 Discontinued Alprazolam 0.25 Mg ORAL NEEDED 05/21/14 09/04/14 Discontinued Venlafaxine Hcl 150 Mg ORAL DAILY AT HS 09/04/14 06/11/15 Discontinued Ciprofloxacin Hcl 250 Mg ORAL TWICE A DAY For Urinary tract infection 09/04/14 01/06/15 Discontinued Norgestimate-Ethinyl Estradiol 1 Each ORAL DAILY 09/04/14 06/11/15 Discontinued Trazodone Hcl 100 Mg ORAL BEDTIME 01/06/15 Active Hydroxyzine HCl 25 Mg ORAL NEEDED 01/06/15 Active Sertraline Hcl Unknown Dose ORAL DAILY 06/11/15 Active Metoprolol Succinate 50 Mg ORAL DAILY 06/11/15 Active Levetiracetam 500 Mg ORAL TWICE A DAY 06/11/15 Active Social History No social history. Hospital Discharge Instructions No hospital discharge instructions. Plan of Care Discharge Date 06/11/15 10:20pm Disposition 01 HOME OR SELF-CARE Condition at Discharge Stable Instructions/Education Provided Costochondritis (ED) Prescriptions See Medications Section Referrals Alexy Yang MD Additional Instructions/Education Ibuprofen as needed for pain Heat/cold per comfort Follow up with PCP if no improvement in 2-3 days Return if symptoms worsen Continue current medications Some of your test results may not [...] worrisome symptoms. * Emergency Department phone number: [phone], x [phone]* MEDICAL RECORD If you need copies of your X-rays, call [phone] x [phone]. If you need copies of [...] services. SERVICE BILLING REPUBLICAN Emergency Room Services [facility] Physician Services [facility] X-rays [place] [facility] Patients will receive bills for services from the appropriate provider. If you have any questions about your [facility] bill, our staff will be happy to assist you. Please call [phone], and ask for the billing department. THANK YOU for choosing [facility] as your emergency care provider! Functional Status No functional status results. Allergies, Adverse Reactions, Alerts Allergen Type Severity Reaction Status Last Updated Morphine Allergy Unknown Active 01/06/15 Immunizations No immunization records. Vital Signs Acute Vital Signs Vital Response Date/Time Temperature (Fahrenheit) 98.0 Pulse 88 bpm Respirations 16 Height 5 ft 4 in Weight 253 lb Body Mass Index 43.0 kg/m^2 Results Test Source Date Result Interp. Ref. Range Comments Troponin I June 11, 2015 7:40pm < 0.012 ng/mL 0.010-0.080 Acetaminophen Level September 04, 2014 4:52pm < 10.0 UG/ML L 10.0-30.0 Alanine Aminotransferase (ALT/SGPT) June 11, 2015 7:40pm 37 U/L N 30- 65 Albumin June 11, 2015 7:40pm 4.6 g/dL N 3.4-5.0 Albumin/Globulin Ratio June 11, 2015 7:40pm 1.210 N 1.1-1.8 Alkaline Phosphatase June 11, 2015 7:40pm 77 U/L N 38-126 Anion Gap June 11, 2015 7:40pm 17.2 MEQ/L H 3-15 Aspartate Amino Transf (AST/SGOT) June 11, 2015 7:40pm 25 U/L N 15-37 BUN/Creatinine Ratio June 11, 2015 7:40pm 23 H 10-20 Basophils # (Auto) June 11, 2015 7:40pm 0.0 10^3uL Basophils (%) (Auto) June 11, 2015 7:40pm 1 % N 0-2 Blood Urea Nitrogen June 11, 2015 7:40pm 18 mg/dL N 7-18 Calcium Level June 11, 2015 7:40pm 10.0 mg/dL N 8.8-10.8 Calcium/Ionized Calcium Ratio June 11, 2015 7:40pm 4.0 mg/dL N 3.8- 4.6 Calculated Osmolality June 11, 2015 7:40pm 279 mosm/L L 280-300 Carbon Dioxide Level June 11, 2015 7:40pm 24 mmol/L N 22-29 Chloride Level June 11, 2015 7:40pm 107 mmol/L N 98-108 Codeine Confirmation December 22, 2014 12:01pm Not detected ng/mL () Plgagx=102 ng/mL Creatinine June 11, 2015 7:40pm 0.78 mg/dL N 0.6-1.2 Eosinophils # (Auto) June 11, 2015 7:40pm 0.1 10^3uL Eosinophils (%) (Auto) June 11, 2015 7:40pm 2 % N 0-4 Estimat Glomerular Filtration Rate June 11, 2015 7:40pm 115.1 Estimated GFR (Non- June 11, 2015 7:40pm 95.1 Glucose Level June 11, 2015 7:40pm 92 mg/dL N 70-110 Hematocrit June 11, 2015 7:40pm 37.10 % N 35.00-45.00 Hemoglobin June 11, 2015 7:40pm 13.2 g/dL N 12.0-15.5 Lymphocytes # (Auto) June 11, 2015 7:40pm 1.8 X10^3 Lymphocytes (%) (Auto) June 11, 2015 7:40pm 22 % N 20-46 Mean Corpuscular Hemoglobin June 11, 2015 7:40pm 29.7 PG N 26.0-34.0 Mean Corpuscular Hemoglobin Concent June 11, 2015 7:40pm 35.6 g/dL N 31.0-37.0 Mean Corpuscular Volume June 11, 2015 7:40pm 84 FL N 80-100 Mean Platelet Volume June 11, 2015 7:40pm 11.2 FL H 6.0-9.5 Monocytes # (Auto) June 11, 2015 7:40pm 0.8 X10^3 Monocytes (%) (Auto) June 11, 2015 7:40pm 9 % N 3-11 Neutrophils # (Auto) June 11, 2015 7:40pm 5.6 X10^3 Neutrophils (%) (Auto) June 11, 2015 7:40pm 67 % N 51-67 Platelet Count June 11, 2015 7:40pm 264 10^3uL N 150-450 Potassium Level June 11, 2015 7:40pm 3.7 mmol/L N 3.5-5.1 Red Blood Count June 11, 2015 7:40pm 4.44 10^6uL N 4.00-5.00 Red Cell Distribution Width June 11, 2015 7:40pm 12.5 % N 11.8-15.6 Salicylates Level September 04, 2014 4:52pm < 1.0 MG/DL L 2.0-20.0 Serum Alcohol September 04, 2014 4:52pm < 10.0 mg/dL L 10-80 Sodium Level June 11, 2015 7:40pm 144 mmol/L N 135-150 Thyroid Stimulating Hormone (TSH) January 12, 2015 3:35pm 0.69 UIU/ML N 0.46-4.68 Total Bilirubin June 11, 2015 7:40pm 1.0 mg/dL DN 0.1-1.0 Total Protein June 11, 2015 7:40pm 8.4 g/dL N 6.4-8.5 Ur Tricyclic Antidepressants Screen [...] 22, 2014 12:01pm Not detected ng/mL () Dbbabj=494 ng/mL Urine Hydromorphone Confirmation December 22, 2014 [...] 22, 2014 12:01pm Not detected ng/mL () Bqbduc=890 ng/mL Urine Nitrite January 12, 2015 11:05pm [...] Urine collection method Clean Catch Urine Specific [place] January 12, 2015 11:05pm >=1.030 1.005-1.030 Urine [...] collection method Clean Catch White Blood Count June 11, 2015 7:40pm 8.38 10^3uL N 4.0-11.0 Procedures No known history of procedures. Encounters Encounter Location Date/Time Departed Emergency Room [facility] 06/11/15 7:37pm Recent Diagnosis
--- OUTSIDE RECORDS SUMMARY | 2017-01-23 14:53 | XMS REPORT ---
Author Author Tiffanie Ravi [facility] eClinicalWorks Address Unknown Phone Unavailable Care Team Providers Care Senior Mechanical Design Engineer Name Role Phone Tiffanie Ravi CP Unavailable Allergies No Known Allergies Problems No Known Problems Medications Medication Code System Code Instructions Start Date End Date Status Dosage Lab Order NDC 0 Orders Sep 24, 2016 as directed Results No Known Results Summary Purpose eClinicalWorks Submission
--- OUTSIDE RECORDS SUMMARY | 2017-01-23 14:53 | XMS REPORT ---
Author Author GENERATED, SYSTEM Organization Unknown Address Unknown Phone Unavailable Care Team Providers Care Mattress Renovator Name Role Phone UNASSIGNED DOCTOR MD CYNTHIA DOCTOR PP [phone] Reason For Visit Chief Complaint EMPLOYEE HEALTH Social History Functional Status Vital Signs Results [...]
--- OUTSIDE RECORDS SUMMARY | 2017-01-23 14:53 | XMS REPORT ---
Author Author Tiffanie Ravi Organization [facility] Address [address] [place] [address] Care Team Providers Care Client Integration Manager Name Role Phone Tiffanie Ravi Unavailable [phone] PROBLEMS Unknown Problems ALLERGIES Unknown Allergies SOCIAL HISTORY No smoking Hx information available PLAN OF CARE VITAL SIGNS MEDICATIONS Unknown Medications RESULTS No Results PROCEDURES No Known procedures IMMUNIZATIONS No Known Immunizations
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
--- OUTSIDE RECORDS SUMMARY | 2017-01-23 14:54 | XMS REPORT ---
Author Author GENERATED, SYSTEM Organization Unknown Address Unknown Phone Unavailable Care Team Providers Care Test Facility Engineer Name Role Phone UNASSIGNED DOCTOR MD CYNTHIA DOCTOR PP [phone] Reason For Visit Reason for Visit from [...] H (65-99 MG/DL) GFR EST NON AFR DJIBOUTIAN >90 ML/MIN GFRA EST AFR AMER >90 [...] 11:29 AM:* #1 Office appointment: : Isabel Timmons--[facility] * #1 Date/Time : 04/18/2015 8:20 AM * Address # 1 : [facility]: [place] [address] * #2 Office appointment: : Serene Phillips--[facility] * #2 Date/Time : 05/02/2016 11:00 AM * Address # 2 : [facility]: [place] [address] * #3 Office appointment: : Ren[facility] follow up * #3 Date/Time : 04/14/2015 3:00 PM * Address # 3 : [facility]: [place] [address] Procedures * Completed Procedure Code: 86.59 [...] the responsibility of the patient or patient professional healthcare representative to confirm the list of medications [...]
--- OUTSIDE RECORDS SUMMARY | 2017-01-23 14:54 | XMS REPORT ---
Author Author GENERATED, SYSTEM Organization Unknown Address Unknown Phone Unavailable Care Team Providers Care Data Collection Associate Name Role Phone UNASSIGNED DOCTOR MD CYNTHIA DOCTOR PP [phone] Reason For Visit Chief Complaint VAGINAL PAIN X 1 WEEK Social History Functional Status Vital Signs Results Microbiology from 10/30/2014 9:50 PM* CULTURE GENITAL (Preliminary Result) Specimen Number: [id number] Sample Collection Date/Time: 10/30/2014 9:50 PM Specimen Source: Genital Labia * GRAM STAIN Specimen Number: [id number] Sample Collection Date/Time: 10/30/2014 9:50 PM Specimen Source: Genital Labia Problems Encounter Diagnosis No relevant problems exist. [...]
--- OUTSIDE RECORDS SUMMARY | 2017-01-23 14:54 | XMS REPORT | Continuity Of Care Document ---
Author Author [facility] Organization [facility] Address [address] [facility] [place] [address] Phone Care Team Providers Care Medical Typist Name Role Phone Jhon BARFIELD MD AT UNASSIGNED, PHYSICIAN Unavailable Unavailable Results Lab Results Visit/Account #[id number] (January 05, 2016 2:30pm - January 05, 2016 6:42pm) Test Result Date/Time POC LACTIC ACID VENOUS POC LACTIC ACID VENOUS(0.90-1.70 MMOL/L) 3.52 MMOL/L January 05, 2016 2:41pm CBC WITH REFLEXED MANUAL DIFF WHITE BLOOD COUNT(4.0-11.0 10E3/UL) 7.9 10E3/UL January 05, 2016 2:40pm RED BLOOD COUNT(4.00-5.20 10E6/UL) 4.42 10E6/UL January 05, 2016 2:40pm HEMOGLOBIN(12.0-16.0 G/DL) 13.4 G/DL January 05, 2016 2:40pm HEMATOCRIT(36.0-46.0 %) 38.4 % January 05, 2016 2:40pm MEAN CORPUSCULAR VOLUME(82.0-100.0 FL) 86.9 FL January 05, 2016 2:40pm 24653-5: MEAN CORPUSCULAR HEMOGLOBIN(26.0-34.0 PG) 30.3 PG January 05, 2016 2:40pm MEAN CORPUSCULAR HGB CONC(31.5-36.5 G/DL) 34.9 G/DL January 05, 2016 2:40pm RED CELL DISTRIBUTION WIDTH(11.5-14.5 %) 12.9 % January 05, 2016 2:40pm 777-3: PLATELET COUNT(150-450 10E3/UL) 233 10E3/UL January 05, 2016 2:40pm MEAN PLATELET VOLUME(8.2-12.4 FL) 11.5 FL January 05, 2016 2:40pm DIFF TYPE MANUAL January 05, 2016 2:40pm NEUTROPHIL % (MANUAL)(40-70 %) 96 % January 05, 2016 2:40pm LYMPHOCYTES % (MANUAL)(15-45 %) 4 % January 05, 2016 2:40pm MONOCYTES % (MANUAL)(2-10 %) 0 % January 05, 2016 2:40pm EOSINOPHILS % (MANUAL)(0-6 %) 0 % January 05, 2016 2:40pm 50097-2: BASOPHILS % (MANUAL)(0-1 %) 0 % January 05, 2016 2:40pm NUCLEATED RBCS (MANUAL)(0-0 %) 0 % January 05, 2016 2:40pm 753-4: NEUTROPHILS # (MANUAL)(2.5-7.5 10E3/UL) 7.6 10E3/UL January 05, 2016 2:40pm 732-8: LYMPHOCYTES # (MANUAL)(1.0-4.0 10E3/UL) 0.3 10E3/UL January 05, 2016 2:40pm 705-4: BASOPHILS # (MANUAL)(0.0-0.2 10E3/UL) 0.0 10E3/UL January 05, 2016 2:40pm 9317-9: PLATELET ESTIMATE ADEQUATE January 05, 2016 2:40pm 03518-9: WBC MORPHOLOGY COMMENT NORMAL January 05, 2016 2:40pm 6742-1: RBC MORPHOLOGY COMMENT NORMAL January 05, 2016 2:40pm 58748-0: PLATELET MORPHOLOGY COMMENT NORMAL January 05, 2016 2:40pm UA WITH SCREEN FOR CULTURE 5778-6: COLOR,URINE STRAW January 05, 2016 2:50pm 34421-1: CLARITY,URINE SL CLOUDY January 05, 2016 2:50pm GLUCOSE, URINE(NEGATIVE MG/DL) 500 MG/DL January 05, 2016 2:50pm URINE BILIRUBIN(NEGATIVE) NEGATIVE January 05, 2016 2:50pm 91549-0: KETONES,URINE(NEGATIVE MG/DL) NEGATIVE MG/DL January 05, 2016 2:50pm 2965-2: URINE SPECIFIC GRAVITY(1.001-1.035) Less than or equal to 1.005 January 05, 2016 2:50pm 90126-3: URINE BLOOD(NEGATIVE) NEGATIVE January 05, 2016 2:50pm 2756-5: URINE PH(5.0-9.0) 5.5 January 05, 2016 2:50pm URINE PROTEIN(Less than 20 MG/DL) NEGATIVE MG/DL January 05, 2016 2:50pm URINE UROBILINOGEN(0.2-1.0 MG/DL) 0.2 MG/DL January 05, 2016 2:50pm URINE NITRITE(NEGATIVE) NEGATIVE January 05, 2016 2:50pm 5799-2: LEUKOCYTE ESTERASE ,URINE(NEGATIVE) NEGATIVE January 05, 2016 2:50pm 630-4: URINE CULTURE NOT INDICATED January 05, 2016 2:50pm URINE MICROSCOPIC REQUIRED NO January 05, 2016 2:50pm 10685-2: COMPLETE METABOLIC PROFILE GLUCOSE(70-110 MG/DL) 170 MG/DL January 05, 2016 2:40pm BLOOD UREA NITROGEN(6-20 MG/DL) 12 MG/DL January 05, 2016 2:40pm CREATININE(0.50-1.20 MG/DL) 0.80 MG/DL January 05, 2016 2:40pm 64369-7: EST GLOMERULAR FILTRATION RATE(Greater than or equal to 60) Greater than or equal to 60 Result Comments: If the patient is of -[place] descent/extraction multiply the eGFR value by 1.212 to obtain the actual eGFR. >=60 mg/dL Normal 30-59 mg/dL Moderate Kidney Disease 15-29 mg/dL Severe Kidney Disease <15 mg/dL Kidney Failure January 05, 2016 2:40pm BUN CREATININE RATIO(10.0-20.0 RATIO) 15.0 RATIO January 05, 2016 2:40pm SODIUM(135-145 MMOL/L) 139 MMOL/L January 05, 2016 2:40pm POTASSIUM(3.6-5.0 MMOL/L) 4.3 MMOL/L January 05, 2016 2:40pm CHLORIDE(101-111 MMOL/L) 110 MMOL/L January 05, 2016 2:40pm 8-9: CO2(21-31 MMOL/L) 19 MMOL/L January 05, 2016 2:40pm ANION GAP(8-18) 14 January 05, 2016 2:40pm OSMO CALCULATED(270.0-290.0) 281.3 January 05, 2016 2:40pm CALCIUM(8.5-10.5 MG/DL) 8.6 MG/DL January 05, 2016 2:40pm BILIRUBIN,TOTAL(0.1-1.2 MG/DL) 0.5 MG/DL January 05, 2016 2:40pm ALKALINE PHOSPHATASE(42-121 IU/L) 49 IU/L January 05, 2016 2:40pm ASPARTATE AMINO TRANSFERASE(14-37 IU/L) 34 IU/L January 05, 2016 2:40pm ALANINE AMINOTRANSFERASE(8-29 IU/L) 28 IU/L January 05, 2016 2:40pm TOTAL PROTEIN(6.4-8.2 G/DL) 8.4 G/DL January 05, 2016 2:40pm ALBUMIN(3.5-5.5 G/DL) 3.8 G/DL January 05, 2016 2:40pm GLOBULIN(2.4-3.6) 4.6 January 05, 2016 2:40pm ALBUMIN/GLOBULIN RATIO(0.9-1.8 RATIO) 0.8 RATIO January 05, 2016 2:40pm 19040-2: LEVETIRACETAM 23780-8: LEVETIRACETAM(6.0-46.0 UG/ML) Less than 2.0 UG/ML Result Comments: THE REFERENCE RANGE LISTED SHOULD ONLY IMPLY A LOWER LIMIT BELOW WHICH A THERAPEUTIC RESPONSE IS RELATIVELY UNLIKELY TO OCCUR, AND AN UPPER LIMIT ABOVE WHICH TOXICITY IS RELATIVELY LIKELY TO OCCUR. January 05, 2016 2:40pm Allergies and Adverse Reactions Allergies and Adverse Reactions Patient Unit Number: [id number] Agent Type Reaction Severity Status PENICILLINS Drug Allergy Unknown Unknown Active MORPHINE Drug Allergy Unknown Mild Active Problem List Problem List Visit/Account #[id number] (January 05, 2016 2:30pm - January 05, 2016 6:42pm) Acute Problems: Code/Condition Comments Documented Start Date Documented Resolved Date Code (s) Seizure ICD10: R56.9 Seizure ICD9: 780.39 Seizure SNOMED: 25118700 Seizure Plan of Care Plan Of Care Visit/Account #[id number] (January 05, 2016 2:30pm - January 05, 2016 6:42pm) Patient Instructions Take Keppra as prescribed Followup with primary doctor next week Followup with Dr Laura Return for repeat seizure activity, any concern Vital Signs Vital Signs Visit/Account #[id number] (January 05, 2016 2:30pm - January 05, 2016 6:42pm) Sign First Result Last Result Code(s) Temperature in Fahrenheit Temperature (Fahrenheit): 97.3 [degF] On January 05, 2016 2:28pm Temperature (Fahrenheit): 97.9 [degF] On January 05, 2016 6:33pm 8310-5 Body Temperature Weight in Kilograms Weight (Kilograms): 117.2 kg On January 05, 2016 2:28pm 3141-9 Weight Measured 77691-5 Body weight measured in kilograms Functional Status Functional and Cognitive Status No Functional Status Data Medications Home Medications - Medications that the patient was taking prior to arrival at the hospital Visit/Account #[id number] (January 05, 2016 2:30pm - January 05, 2016 6:42pm) Medication Route Sig/Schedule Precondition/Indication Comments/Instructions Codes KEPPRA(LevETIRAcetam) 500 MG TABLET Dose: 500 MG ORAL TWICE A DAY Rx Instructions: last filled 08/11/15 per [facility]. Patient reported filling at [facility], but they haven't filled anything for her since April of last year either. Levetiracetam 500 MG Oral Tablet [Keppra] (RxNorm): 301993 KEPPRA (LevETIRAcetam) NDC: 85251845131 TOPROL XL(METOPROLOL SUCCINATE) 50 MG TAB Dose: 50 MG ORAL DAILY Rx Instructions: last filled 08/11/15 per [facility]. Patient reported filling at [facility], but they haven't filled anything for her since April of last year either. 24 HR metoprolol succinate 50 MG Extended Release Oral Tablet [Toprol] (RxNorm ): 975605 TOPROL XL (METOPROLOL SUCCINATE) NDC: 20889546208 LATUDA(LURASIDONE HCL) 40 MG TAB Dose: 40 MG ORAL DAILY WITH SUPPER Lurasidone Hydrochloride 40 MG Oral Tablet [Latuda] (RxNorm): 3914041 LATUDA (LURASIDONE HCL) NDC: 34586636218 Inpatient/Ordered Medications - Medications administered during hospital visit Visit/Account #[id number] (January 05, 2016 2:30pm - January 05, 2016 6:42pm) Medication Route Sig/Schedule Precondition/Indication Comments/Instructions Codes IV Medication Carriers: KEPPRA INJ(LEVETIRACETAM IN NACL (ISO-OS)) 1000 MG/100 ML INJECTION Dose: 100 ML INTRAVEN NOW (Rate: 400 MLS/HR Duration: 15 MIN) Label Comments: DO NOT REFRIGERATE Carriers: Levetiracetam 10 MG/ML Injectable Solution (RxNorm): 6985021 KEPPRA INJ (LEVETIRACETAM IN NACL (ISO-OS)) NDC: 45127400956 IV Medication Additives: ROCEPHIN INJ(CefTRIAXone SOD) 2000 MG INJECTION Dose: 2000 MG Carriers: SODIUM CHLORIDE 50 ML INJECTION Dose: 50 ML INTRAVEN JUAN (Rate: 100 MLS/HR Duration: 30 MIN) Label Comments: REFRIGERATE IVPBs Expires 24 HRS after preparation Additives: Ceftriaxone 2000 MG Injection (RxNorm): 9763789 ROCEPHIN INJ (CefTRIAXone SOD) NDC: 63596591898 Carriers: Sodium Chloride 0.154 MEQ/ML Injectable Solution (RxNorm): 569565 (SODIUM CHLORIDE) NDC: 25359461871 IV Medication Additives: VANCOCIN(VANCOMYCIN HCL) 1000 MG INJECTION Dose: 2000 MG Carriers: SODIUM CHLORIDE 500 ML INJECTION Dose: 500 ML INTRAVEN JUAN (Rate: 250 MLS/HR Duration: 2 HR) Label Comments: REFRIGERATE Expires 24 HRS after preparation Additives: Vancomycin 50 MG/ML Injectable Solution (RxNorm): 455451 VANCOCIN (VANCOMYCIN HCL) NDC: 37582296708 Carriers: Sodium Chloride 0.154 MEQ/ML Injectable Solution (RxNorm): 757326 (SODIUM CHLORIDE) NDC: 36239842899 IV Medication Additives: ZOVIRAX INJ(ACYCLOVIR) 1000 MG/20 ML INJECTION Dose: 550 MG Carriers: SODIUM CHLORIDE 100 ML INJECTION Dose: 100 ML INTRAVEN JUAN (Rate: 111 MLS/HR Duration: 1 HR) Label Comments: EXP IN 24 HR @ DO NOT REFRIGERATE Additives: Acyclovir 50 MG/ML Injectable Solution (RxNorm): 244597 ZOVIRAX INJ (ACYCLOVIR) NDC: 21986847292 Carriers: Sodium Chloride 0.154 MEQ/ML Injectable Solution (RxNorm): 946908 (SODIUM CHLORIDE) NDC: 29987666400 IV Medication Carriers: NORMAL SALINE(SODIUM CHLORIDE) 1000 ML INJECTION Dose: 1000 ML INTRAVEN .Q1H (Rate: 1000 MLS/HR Duration: 1 HR) Carriers: Sodium Chloride 0.154 MEQ/ML Injectable Solution (RxNorm): 423526 NORMAL SALINE (SODIUM CHLORIDE) NDC: 32654656230 ATIVAN INJ(LORazepam) 2 MG/ML INJECTION Dose: 2 MG Route .STK-MED 1 ML Lorazepam 2 MG/ML Injection [Ativan] (RxNorm): 8916534 ATIVAN INJ (LORazepam) NDC: 79594790319 IV Medication Carriers: KEPPRA INJ(LEVETIRACETAM IN NACL (ISO-OS)) 1000 MG/100 ML INJECTION Dose: 100 ML INTRAVEN NOW (Rate: 400 MLS/HR Duration: 15 MIN) Label Comments: DO NOT REFRIGERATE Carriers: Levetiracetam 10 MG/ML Injectable Solution (RxNorm): 1776696 KEPPRA INJ (LEVETIRACETAM IN NACL (ISO-OS)) NDC: 30707469947 ATIVAN INJ(LORazepam) 2 MG/ML INJECTION Dose: 2 MG Route .STK-MED 1 ML Lorazepam 2 MG/ML Injection [Ativan] (RxNorm): 0300738 ATIVAN INJ (LORazepam) NDC: 12923445149 Discharge Medications - Medications that patient should continue to take. Review with physician Visit/Account #[id number] (January 05, 2016 2:30pm - January 05, 2016 6:42pm) Medication Route Sig/Schedule Precondition/Indication Comments/Instructions Codes KEPPRA(LevETIRAcetam) 1000 MG TABLET Dose: 1000 MG ORAL TWICE A DAY Levetiracetam 1000 MG Oral Tablet [Keppra] (RxNorm): 472027 KEPPRA (LevETIRAcetam) NDC: 74321045003 History Of Encounters Encounters Visit/Account #[id number] (January 05, 2016 2:30pm - January 05, 2016 6:42pm) Account Status Physican Of Record Reason For Visit Visit Diagnosis Start Date/Time Stop Date/Time ER DANIELLE BARFIELD MD SYNCOPE Not Available Jan 05, 2016 2:30pm Jan 05, 2016 6:42pm History of Procedures Procedure List No procedures recorded. Discharge Instructions Discharge Instructions Visit/Account #[id number] (January 05, 2016 2:30pm - January 05, 2016 6:42pm) DISCHARGE INSTRUCTIONS Physician Documentation Social History Social History No Social History Data. Immunizations Immunizations Patient Unit Number: [id number] Immunizations No immunizations recorded.
--- OUTSIDE RECORDS SUMMARY | 2017-01-23 14:54 | XMS REPORT ---
Author Author Tiffanie Ravi Organization [employer] Address Unknown Phone Unavailable Care Team Providers Care Roller Print Tender Name Role Phone Tiffanie Ravi CP Unavailable Allergies No Known Allergies Problems No Known Problems Medications Medication Code System Code Instructions Start Date End Date Status Dosage Lab Order NDC 0 Orders Jul 17, 2016 as directed Results No Known Results Summary Purpose [employer] Submission
--- OUTSIDE RECORDS SUMMARY | 2017-01-23 14:55 | XMS REPORT ---
Author Author GENERATED, SYSTEM Organization Unknown Address Unknown Phone Unavailable Care Team Providers Care Merry Go Round Attendant Name Role Phone UNASSIGNED DOCTOR MD CYNTHIA DOCTOR PP [phone] Reason For Visit Chief Complaint DIZZY,VOMITING Social History Functional Status Vital Signs Results Chemistry from 12/21/2014 11:15 PMCOCAINE NEGATIVE (NEG <150 ) PCP POSITIVE A (NEG <25 ) OXYCODONE NEGATIVE (NEG <100 ) *PROPOXYPHENE (NORPROPOXYPHENE) (LAB) NEGATIVE (NEG <300 ) CANNABINOIDS POSITIVE A (NEG <50 ) BENZODIAZEINE NEGATIVE (NEG <150 ) AMPHETAMINE NEGATIVE (NEG <500 ) BARBITURATES NEGATIVE (NEG <200 ) METHAMPHETAMINES NEGATIVE (NEG <500 ) METHADONE (UR) NEGATIVE (NEG <200 ) OPIATES POSITIVE A (NEG <100 ) TRICYCLICS NEGATIVE (NEG <300 ) Chemistry from 12/21/2014 9:45 PMCOCAINE NEGATIVE (NEG <150 ) PCP POSITIVE A (NEG <25 ) OXYCODONE NEGATIVE (NEG <100 ) *PROPOXYPHENE (NORPROPOXYPHENE) (LAB) NEGATIVE (NEG <300 ) CANNABINOIDS NEGATIVE (NEG <50 ) BENZODIAZEINE NEGATIVE (NEG <150 ) AMPHETAMINE NEGATIVE (NEG <500 ) BARBITURATES NEGATIVE (NEG <200 ) METHAMPHETAMINES POSITIVE A (NEG <500 ) METHADONE (UR) NEGATIVE (NEG <200 ) OPIATES NEGATIVE (NEG <100 ) TRICYCLICS NEGATIVE (NEG <300 ) Chemistry from 12/21/2014 9:30 PMSODIUM 137 MMOL/L (136-145 MMOL/L) POTASSIUM 4.0 MMOL/L (3.5-5.1 MMOL/L) CHLORIDE 102 MMOL/L (98-107 MMOL/L) TCO2 28.3 MMOL/L (21.0-32.0 MMOL/L) ANION GAP 6.7 MMOL/L L (8.0-16.0 MMOL/L) BUN 16 MG/DL (7-18 MG/DL) CREATININE 0.92 MG/DL H (0.43-0.83 MG/DL) BUN/CREATININE RATIO 17.4 H (9.1-17.0 ) GLUCOSE 107 MG/DL H (65-99 MG/DL) GFR EST NON AFR TONGAN >90 ML/MIN GFRA EST AFR AMER >90 ML/MIN CALCIUM 9.3 MG/DL (8.5-10.1 MG/DL) BILIRUBIN TOTAL 0.64 MG/DL (0.20-1.00 MG/DL) TOTAL PROTEIN 8.2 GM/DL (6.4-8.2 GM/DL) ALBUMIN 3.7 GM/DL (3.4-5.0 GM/DL) GLOBULIN 4.5 GM/DL H (2.3-3.5 GM/DL) A/G RATIO 0.8 MG/DL L (1.5-2.2 MG/DL) ALK PHOS 77 U/L (46-116 U/L) ALT (SGPT) 43 U/L (12-78 U/L) AST (SGOT) 21 U/L (15-37 U/L) LIPASE 114 U/L (73-393 U/L) TROPONIN-I <0.04 (SEE BELOW ) ALCOHOL <0.003 GM/DL ACETAMINOPHEN <2 MCG/ML L (10-30 MCG/ML) SALICYLATE <0.2 MG/DL L (2.8-20.0 MG/DL) Hematology from 12/21/2014 9:30 PMWBC 9.1 X10e3/UL (3.6-11.2 X10e3/UL) RBC 4.57 X10e6/UL (3.63-4.92 X10e6/UL) HEMOGLOBIN 13.7 G/DL (11.0-14.3 G/DL) HEMATOCRIT 40.2 % (31.2-41.9 %) MCV 88.0 FL (79.0-98.0 FL) MCH 29.9 PG (27.0-33.0 PG) MCHC 34.0 G/DL (32.0-36.0 G/DL) RDW 13.3 % (12.3-17.0 %) RDWSD 41.6 (37.1-47.8 ) PLATELET 283 X10e3/UL (159-386 X10e3/UL) MPV 9.5 FL (7.4-10.4 FL) AUTOMATED DIFF PERFORMED SEGS 69.5 % LYMPHOCYTES 20.5 % MONOCYTES 7.6 % EOSINOPHILS 1.7 % BASOPHILS 0.7 % ABSOLUTE NEUTROPHILS 6.30 X10e3/UL (1.80-7.80 X10e3/UL) ABSOLUTE LYMPHOCYTES 1.90 X10e3/UL (1.00-3.00 X10e3/UL) ABSOLUTE MONOCYTES 0.70 X10e3/UL (0.30-1.00 X10e3/UL) ABSOLUTE EOSINOPHILS 0.20 X10e3/UL (0.00-0.50 X10e3/UL) ABSOLUTE BASOPHILS 0.10 X10e3/UL (0.00-0.20 X10e3/UL) Urinalysis from 12/21/2014 9:45 PM* Status: Final Result URINALYSIS Specimen Number: [id number] Sample Collection Date/Time: 12/21/2014 9:45 PM Specimen Source: URINE COLOR YELLOW (STRAW/YELL/DK YELL ) URINE APPEARANCE CLEAR (CLEAR ) URINE PH 6.0 (5.0-8.0 ) URINE SPECIFIC GRAVITY 1.025 (<=1.005->=1.030 ) URINE GLUCOSE NEGATIVE MG/DL (NEGATIVE MG/DL) URINE BILIRUBIN NEGATIVE (NEGATIVE ) URINE KETONES TRACE MG/DL A (NEGATIVE MG/DL) URINE BLOOD NEGATIVE (NEGATIVE ) URINE PROTEIN NEGATIVE MG/DL (NEGATIVE MG/DL) URINE UROBILINOGEN 0.2 EU/DL (0.2-1.0 EU/DL) URINE NITRITES NEGATIVE (NEGATIVE ) *URINE LEUKOCYTES NEGATIVE (NEGATIVE ) UR NEGATIVE (NEGATIVE ) CT Scan from 12/21/2014 9:18 PMCT ABD/PELVIS W/CONTRAST (Preliminary Result) DATE OF EXAM: Dec 21 2014 10:51PM Proc: CT 0232 - CT ABD/PELVIS W/ CONTRAST CPT Code(s): 50104-; ; ; INDICATION / CLINICAL HISTORY: Abdominal pain, nausea, vomiting, diarrhea. TECHNIQUE: The study was performed with 95 ml of Isovue 300 IV contrast. FINDINGS: ABDOMEN: There is mild motion artifact in the upper abdomen. The liver, spleen, pancreas, adrenal glands and kidneys appear unremarkable. No free fluid or retroperitoneal lymphadenopathy is identified. The gallbladder appears unremarkable. PELVIS: The appendix appears normal. The bladder, prostate, and seminal vesicles appear unremarkable. No free fluid or inflammatory process identified. IMPRESSION: Unremarkable CT of the abdomen and pelvis. CT CEREBRAL W/O CONTRAST DATE OF EXAM: Dec 21 2014 10:51PM Proc: CT 0001 - CT CEREBRAL W/O CONTRAST CPT Code(s): 64612-; ; ; INDICATION / CLINICAL HISTORY: \E\altered mental status FINDINGS: There is no evidence of intracranial mass, midline shift or abnormal extraaxial fluid collection. There is no evidence of cerebral edema, hydrocephalus, intracranial hemorrhage or evidence of acute infarct. The bony structures appear intact without evidence of acute fracture. The mastoid air cells and visualized paranasal sinuses appear clear. IMPRESSION: Unremarkable CT of the head. Problems Encounter Diagnosis No relevant problems exist. [...]
--- OUTSIDE RECORDS SUMMARY | 2017-01-23 14:55 | XMS REPORT ---
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 Medications Medication Code System Code Instructions Start Date End Date Status Dosage ProAir HFA [facility] [place] [address]-16 108 (90 Base) MCG/ACT Inhalation every 4 hrs 2 puffs as needed Sertraline HCl [facility] [place] [address]-34 50 MG Orally Once a day 1 1/2 tablets Multi-Vitamin [facility] [place] [address]-00 Orally QD 1 tablet Depo-Provera [facility] [place] [address]-22 150 MG/ML Intramuscular 1 ml Metoprolol Tartrate [facility] [place] [address]-85 50 MG Orally Twice a day 1 tablet Trazodone HCl [facility] [place] [address]-22 100 MG Orally QHS 1 tablet HydrOXYzine HCl [facility] [place] [address]-69 25 MG Orally TID 1 tablet Procedures Procedure Coding System Code Date Office Visit, New Pt., Level 4 CPT-4 83586 May 16, 2015 ELECTROCARDIOGRAM, COMPLETE CPT-4 16069 May 16, 2015 Vital Signs Date/Time: May 16, 2015 BMI 44.14 Index Weight 257.2 lbs Height 64 in Cardiac Monitoring Heart Rate 74 /min Oximetry 98% % Blood Pressure Diastolic 70 mm Hg Blood Pressure Systolic 100 mm Hg Results Name Result Date Reference Range Unit Abnormality Flag Atria ECG Summary Purpose [employer] Submission
--- OUTSIDE RECORDS SUMMARY | 2017-01-23 14:55 | XMS REPORT | Continuity of Care Document ---
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 11/26/2016 WINSOME KIRAN MD Ot Z82.69 FAMILY HISTORY OF DISEASES OF THE MS SYS 11/26/2016 WINSOME KIRAN MD, Ot M25.472 EFFUSION, LEFT ANKLE 11/26/2016 WINSOME KIRAN MD, Ot M25.572 PAIN IN LEFT ANKLE AND JOINTS OF LEFT FO 11/26/2016 WINSOME KIRAN MD Ot Z82.69 FAMILY HISTORY OF DISEASES OF THE MS SYS 12/06/2016 CARLOS RAY F332 Major depressv disorder, recurrent severe w/o psych features 12/06/2016 CARLOS RAY F419 Anxiety disorder, unspecified 12/06/2016 CARLOS RAY F4310 Post-traumatic stress disorder, unspecified 12/06/2016 CARLOS RAY M109 Gout, unspecified 12/06/2016 CARLOS RAY [id number] Suicidal ideations 12/06/2016 CARLOS RAY Z915 Personal history of self-harm 12/13/2016 WINSOME KIRAN MD Ot M25.472 EFFUSION, LEFT ANKLE 12/13/2016 WINSOME KIRAN MD, Ot M25.572 PAIN IN LEFT ANKLE AND JOINTS OF LEFT FO 12/13/2016 WINSOME KIRAN MD Ot Z82.69 FAMILY HISTORY OF DISEASES OF THE MS SYS 12/25/2016 CESILIA ANGELES MD Ot R00.0 TACHYCARDIA, UNSPECIFIED 12/25/2016 WINSOME KIRAN MD Ot I47.1 SUPRAVENTRICULAR TACHYCARDIA 12/25/2016 WINSOME KIRAN MD, Ot R00.2 PALPITATIONS 12/25/2016 WINSOME KIRAN MD, Ot R74.0 NONSPEC ELEV OF LEVELS OF TRANSAMNS LA 01/01/2017 WINSOME KIRAN MD, Ot M25.472 EFFUSION, LEFT ANKLE 01/01/2017 WINSOME KIRAN MD, Ot M25.572 PAIN IN LEFT ANKLE AND JOINTS OF LEFT FO 01/01/2017 WINSOME KIRAN MD, Ot Z82.69 FAMILY HISTORY OF DISEASES OF THE MS SYS Procedures Results Test Result Range CBC W/DIFF - 05/17/15 13:35 BASOPHIL # 0.1 k/cumm 0.0-0.2 BASOPHIL % 1 % 0-1 EOSINOPHIL # 0.1 k/cumm 0.1-0.5 EOSINOPHIL % 1 % 2-4 GRANULOCYTE # 6.6 k/cumm 2.0-9.0 GRANULOCYTE % 74 % 50-75 LYMPHOCYTE # 1.5 k/cumm 1.0-4.0 LYMPHOCYTE % 17 % 20-30 MEAN CELL HGB 29.7 pg 27.0-33.0 MEAN CELL HGB CONCENTRATION 34.9 g/dL 32.0-37.0 MEAN CELL VOLUME 85.1 fl 80.0-100.0 MONOCYTE # 0.7 k/cumm 0.1-1.0 MONOCYTE % 8 % 4-6 RED BLOOD CELL 4.55 m/cumm 4.00-6.00 RED CELL DISTRIBUTION WIDTH 13.1 % 11.0- 15.6 WHITE BLOOD CELL 8.9 k/cumm 5.0-10.0 HEMOGLOBIN 13.5 gm/dL 12.0-16.0 HEMATOCRIT 38.7 % 37.0-47.0 PLATELET COUNT 214 k/cumm 150-400 Microbiology CHEM/HEM PROFILE-BEDSIDE - 05/17/15 13:47 POTASSIUM 4.3 mmol/L 3.5-5.3 METHOD Bedside ANION GAP 17 mmol/L 10-20 METHOD Bedside GLUCOSE 97 mg/dL 70-99 BLOOD UREA NITROGEN 24 mg/dL 7-20 CREATININE 0.8 mg/dL 0.6-1.0 HEMOGLOBIN 13.3 gm/dL 12.0-16.0 HEMATOCRIT 39.0 % 37.0-47.0 SODIUM 142 mmol/L 135-148 CHLORIDE 106 mmol/L 98-110 CARBON DIOXIDE 25 mmol/L 21-32 CALCIUM IONIZED 4.9 mg/dL 4.5-5.3 Microbiology URINALYSIS, ROUTINE - 05/17/15 13:48 UA LEUKOCYTE ESTERASE DIPSTICK NEGATIVE NEGATIVE UA NITRITE DIPSTICK NEGATIVE NEGATIVE UA PROTEIN DIPSTICK NEGATIVE NEGATIVE UA GLUCOSE DIPSTICK NEGATIVE NEGATIVE UA KETONE DIPSTICK NEGATIVE NEGATIVE UA UROBILINOGEN DIPSTICK NORMAL NORMAL UA BILIRUBIN DIPSTICK NEGATIVE NEGATIVE UA BLOOD DIPSTICK 3+ NEGATIVE UA SPECIFIC GRAVITY 1.025 1.015-1.025 UR PH 6.0 5.0-7.0 Microbiology UA MICROSCOPIC - 05/17/15 13:48 UA BACTERIA 2+ NEGATIVE UA EPITHELIAL CELLS 3+ epi/hpf 0 - 1+ UA MUCUS 3+ NEG TO 1+ UA RBC 3-5 rbc/hpf 0 - 3 UA VOLUME FOR EXAM 12.0 mL (12mL STD) UA WBC 2-5 wbc/hpf 0 - 5 UR DRUGS OF ABUSE SCREEN - 05/17/15 13:48 UR AMPHETAMINES SCREEN NEG (<1000 ng/mL) NEGATIVE UR BARBITURATE SCREEN NEG (< 200 ng/mL) NEGATIVE DRUGS OF ABUSE SCREEN COMMENT UR OPIATES SCREEN NEG (< 300 ng/mL) NEGATIVE UR PHENCYCLIDINE (PCP) SCREEN NEG (< 25 ng/mL) NEGATIVE UR CANNABINOIDS (THC) SCREEN NEG (< 50 ng/mL) NEGATIVE UR COCAINE METABOLITE SCREEN NEG (< 300 ng/mL) NEGATIVE UR METHADONE SCREEN NEG (< 300 ng/mL) NEGATIVE UR BENZODIAZEPINE SCREEN NEG (< 200 ng/mL) NEGATIVE Microbiology UR TEST - 05/17/15 13:50 UR TEST NEGATIVE NEGATIVE Microbiology CBC W/DIFF - 05/18/15 02:05 BASOPHIL # 0.0 k/cumm 0.0-0.2 BASOPHIL % 1 % 0-1 EOSINOPHIL # 0.2 k/cumm 0.1-0.5 EOSINOPHIL % 2 % 2-4 GRANULOCYTE # 4.7 k/cumm 2.0-9.0 GRANULOCYTE % 58 % 50-75 LYMPHOCYTE # 2.4 k/cumm 1.0-4.0 LYMPHOCYTE % 30 % 20-30 MEAN CELL HGB 29.9 pg 27.0-33.0 MEAN CELL HGB CONCENTRATION 35.3 g/dL 32.0-37.0 MEAN CELL VOLUME 84.7 fl 80.0-100.0 MONOCYTE # 0.8 k/cumm 0.1-1.0 MONOCYTE % 10 % 4-6 RED BLOOD CELL 3.98 m/cumm 4.00-6.00 RED CELL DISTRIBUTION WIDTH 12.9 % 11.0- 15.6 WHITE BLOOD CELL 8.0 k/cumm 5.0-10.0 HEMOGLOBIN 11.9 gm/dL 12.0-16.0 HEMATOCRIT 33.7 % 37.0-47.0 PLATELET COUNT 209 k/cumm 150-400 Microbiology CREATINE KINASE (CK/CPK) - 05/18/15 02:05 CREATINE KINASE (CK/CPK) 63 Units/L < 193 Microbiology METABOLIC PANEL, [facility] - 05/18/15 02:05 POTASSIUM 3.7 mmol/L 3.5-5.3 EST GFR (MDRD) > 60 mL/min > 59 ANION GAP 10 mmol/L 5-15 EST CrCl (CG) > 60 mL/min > 59 GLUCOSE 96 mg/dL 70-99 CALCIUM 8.3 mg/dL 8.5-10.1 BLOOD UREA NITROGEN 20 mg/dL 7-20 CREATININE 0.9 mg/dL 0.6-1.0 SODIUM 141 mmol/L 135-148 CHLORIDE 106 mmol/L 98-110 AST/SGOT 20 Units/L 10-37 ALT/SGPT 43 Units/L < 66 CARBON DIOXIDE 25 mmol/L 21-32 TOTAL PROTEIN 6.8 gm/dL 6.4-8.2 ALBUMIN 3.0 gm/dL 3.4-5.0 BILI TOTAL 0.7 mg/dL 0.0-1.0 ALKALINE PHOSPHATASE TOTAL 63 IU/L 45- 117 Microbiology MAGNESIUM - 05/18/15 02:05 MAGNESIUM 1.5 mg/dL 1.8-2.4 THYROID STIM HORMONE (TSH) - 05/18/15 02:05 THYROID STIM HORMONE (TSH) 1.41 uIU/mL 0.46-4.13 PROLACTIN - 05/18/15 15:38 PROLACTIN 17.3 ng/mL 1.8-29.2 Microbiology RENAL FUNCTION PANEL - 05/19/15 01:20 POTASSIUM 3.7 mmol/L 3.5-5.3 EST GFR (MDRD) > 60 mL/min > 59 ANION GAP 10 mmol/L 5-15 EST CrCl (CG) > 60 mL/min > 59 GLUCOSE 90 mg/dL 70-99 CALCIUM 8.4 mg/dL 8.5-10.1 BLOOD UREA NITROGEN 15 mg/dL 7-20 CREATININE 0.9 mg/dL 0.6-1.0 SODIUM 142 mmol/L 135-148 CHLORIDE 108 mmol/L 98-110 CARBON DIOXIDE 24 mmol/L 21-32 ALBUMIN 3.1 gm/dL 3.4-5.0 PHOSPHORUS 4.7 mg/dL 2.5-4.9 Microbiology MAGNESIUM - 05/19/15 01:20 MAGNESIUM 1.9 mg/dL 1.8-2.4 PROLACTIN - 05/19/15 01:20 PROLACTIN 48.8 ng/mL 1.8-29.2 Microbiology URINALYSIS, ROUTINE - 05/21/15 01:48 UA LEUKOCYTE ESTERASE DIPSTICK NEGATIVE NEGATIVE UA NITRITE DIPSTICK NEGATIVE NEGATIVE UA PROTEIN DIPSTICK NEGATIVE NEGATIVE UA GLUCOSE DIPSTICK NEGATIVE NEGATIVE UA KETONE DIPSTICK NEGATIVE NEGATIVE UA UROBILINOGEN DIPSTICK NORMAL NORMAL UA BILIRUBIN DIPSTICK NEGATIVE NEGATIVE UA BLOOD DIPSTICK 2+ NEGATIVE UA SPECIFIC GRAVITY 1.021 1.015-1.025 UR PH 5.0 5.0-7.0 Microbiology UA MICROSCOPIC - 05/21/15 01:48 UA BACTERIA 4+ NEGATIVE UA EPITHELIAL CELLS 4+ epi/hpf 0 - 1+ UA MUCUS 1+ NEG TO 1+ UA RBC 5-10 rbc/hpf 0 - 3 UA VOLUME FOR EXAM 12.0 mL (12mL STD) UA WBC 0-1 wbc/hpf 0 - 5 CBC - 05/21/15 05:58 MEAN CELL HGB 30.4 pg 27.0-33.0 MEAN CELL HGB CONCENTRATION 37.0 g/dL 32.0-37.0 MEAN CELL VOLUME 82.2 fl 80.0-100.0 RED BLOOD CELL 4.83 m/cumm 4.00-6.00 RED CELL DISTRIBUTION WIDTH 12.8 % 11.0- 15.6 WHITE BLOOD CELL 9.0 k/cumm 5.0-10.0 HEMOGLOBIN 14.7 gm/dL 12.0-16.0 HEMATOCRIT 39.7 % 37.0-47.0 PLATELET COUNT 213 k/cumm 150-400 Microbiology Complete blood count (CBC) with automated white blood cell (WBC) differential - 06/21/16 16:53 Blood automated leukocyte count 6.66 4.0 -11.0 Erythrocytes 4.30 4.00-5.00 12.0-16.0;g/dL 13.1 12.0-15.5 Hematocrit 36.30 35.00-45.00 Automated erythrocyte mean corpuscular volume 84 80-100 Mean corpuscular hemoglobin (MCH) determination 30.5 26.0-34.0 Automated erythrocyte mean corpuscular hemoglobin concentration measurement ( mass/volume) 36.1 31.0-37.0 Erythrocyte distribution width 12.8 11.8 -15.6 Automated blood platelet count 249 150- 450 Automated blood platelet mean volume measurement 11.5 6.0-9.5 Automated neutrophil percentage 61 51- 67 Lymphocytes/100 leukocytes 28 20-46 Automated monocyte percentage 9 3-11 Eosinophil count auto 2 0-4 Automated basophil percentage 1 0-2 Automated blood neutrophil count 4.0 Blood lymphocytes count (number/volume) 1.8 Automated blood monocyte count 0.6 Blood absolute eosinophil count 0.1 Basophils 0.0 Serum or plasma choriogonadotropin ( test) detection - 06/21/16 16:53 Serum or plasma choriogonadotropin ( test) detection Negative Negative Magnesium measurement - 09/28/16 09:44 Magnesium measurement 1.8 1.6-2.3 ALANINE AMINOTRANSFERASE - 09/28/16 09:44 ALANINE AMINOTRANSFERASE 44 30-65 General health panel - 09/28/16 09:44 Total cell count 0.59 0.46-4.68 Complete blood count (CBC) with automated white blood cell (WBC) differential - 10/01/16 21:09 Blood automated leukocyte count 12.48 4.0-11.0 Erythrocytes 4.43 4.00-5.00 12.0-16.0;g/dL 13.5 12.0-15.5 Hematocrit 37.70 35.00-45.00 Automated erythrocyte mean corpuscular volume 85 80-100 Mean corpuscular hemoglobin (MCH) determination 30.5 26.0-34.0 Automated erythrocyte mean corpuscular hemoglobin concentration measurement ( mass/volume) 35.8 31.0-37.0 Erythrocyte distribution width 12.9 11.8 -15.6 Automated blood platelet count 258 150- 450 Automated blood platelet mean volume measurement 11.4 6.0-9.5 Automated neutrophil percentage 63 51- 67 Lymphocytes/100 leukocytes 26 20-46 Automated monocyte percentage 9 3-11 Eosinophil count auto 2 0-4 Automated basophil percentage 0 0-2 Automated blood neutrophil count 7.8 Blood lymphocytes count (number/volume) 3.3 Automated blood monocyte count 1.1 Blood absolute eosinophil count 0.2 Basophils 0.1 Prothrombin time (PT) with international normalized ratio (INR) - 10/01/16 21: 09 Prothrombin time (PT) in platelet poor plasma by coagulation assay 10.6 10.0-12.5 INR 1.0 0.8-1.4 Activated partial thromboplastin time (aPTT) in platelet poor plasma bycoagulation assay - 10/01/16 21:09 Activated partial thromboplastin time (aPTT) in platelet poor plasma bycoagulation assay 27.5 26.3-36.8 Comprehensive metabolic panel - 10/01/16 21:09 Sodium measurement 87 70-110 Carbon dioxide measurement 26 22-29 Serum or plasma anion gap 18.0 3-15 BLOOD UREA NITROGEN 18 7-18 CREATININE SERUM 0.81 0.6-1.2 Brucella species antibody panel (IgG, IgM) 22 10-20 Estimated glomerular filtration rate (GFR) 109.1 Estimated glomerular filtration rate (GFR) non- 90.2 OSMOLALITY,CALCULATED 279 280-300 CALCIUM 9.5 8.8-10.8 Calculated ionized calcium measurement 3.9 3.8-4.6 BILIRUBIN,TOTAL 1.3 0.1-1.0 Serum or plasma alkaline phosphatase measurement 80 38-126 ASPARTATE AMINO TRANSFERASE 33 15-37 ALANINE AMINOTRANSFERASE 52 30-65 Serum or plasma total protein measurement 7.9 6.4-8.5 Serum or plasma albumin measurement 4.4 3.4-5.0 Serum or plasma albumin/globulin mass ratio 1.257 1.1-1.8 Serum or plasma creatine kinase measurement - 10/01/16 21:09 Serum or plasma creatine kinase measurement 76 30-135 Serum or plasma creatine kinase MB measurement - 10/01/16 21:09 Serum or plasma creatine kinase MB measurement 0.6 0.0-6.0 TROPONIN I* - 10/01/16 21:09 TROPONIN I < 0.012 0.010-0.080 TROPONIN I* - 10/01/16 23:12 TROPONIN I < 0.012 0.010-0.080 URIC ACID - 11/21/16 16:40 URIC ACID 6.6 2.6-5.6 C REACTIVE PROTEIN* - 11/21/16 16:40 C REACTIVE PROTEIN* 1.10 0.0-0.9 Complete blood count (CBC) with automated white blood cell (WBC) differential - 11/21/16 16:40 Blood automated leukocyte count 7.48 4.0 -11.0 Erythrocytes 4.12 4.00-5.00 12.0-16.0;g/dL 12.7 12.0-15.5 Hematocrit 35.30 35.00-45.00 Automated erythrocyte mean corpuscular volume 86 80-100 Mean corpuscular hemoglobin (MCH) determination 30.8 26.0-34.0 Automated erythrocyte mean corpuscular hemoglobin concentration measurement ( mass/volume) 36.0 31.0-37.0 Erythrocyte distribution width 12.4 11.8 -15.6 Automated blood platelet count 266 150- 450 Automated blood platelet mean volume measurement 11.6 6.0-9.5 Automated neutrophil percentage 61 51- 67 Lymphocytes/100 leukocytes 30 20-46 Automated monocyte percentage 7 3-11 Eosinophil count auto 1 0-4 Automated basophil percentage 1 0-2 Automated blood neutrophil count 4.6 Blood lymphocytes count (number/volume) 2.3 Automated blood monocyte count 0.5 Blood absolute eosinophil count 0.1 Basophils 0.0 UR - 11/25/16 13:48 UR NEGATIVE NEGATIVE UR DRUGS OF ABUSE SCREEN - 11/25/16 13:48 *COCAINE NEGATIVE NEG <150 *BARBITURATES NEGATIVE NEG <200 *BENZODIAZEINE NEGATIVE NEG <200 *AMPHETAMINE NEGATIVE NEG <500 *CANNABINOIDS NEGATIVE NEG <50 *OPIATES NEGATIVE NEG <300 *PCP NEGATIVE NEG <25 URINALYSIS (CULTURE PRN) - 11/25/16 13:48 *URINE APPEARANCE SL CLOUDY CLEAR *URINE BILIRUBIN NEGATIVE NEGATIVE *URINE BLOOD TRACE-INTACT NEGATIVE *URINE GLUCOSE NEGATIVE NEGATIVE *URINE KETONES NEGATIVE NEGATIVE *URINE LEUKOCYTES NEGATIVE NEGATIVE *URINE NITRITES NEGATIVE NEGATIVE URINE PH 6.0 5.0-8.0 *URINE PROTEIN NEGATIVE NEGATIVE URINE SPECIFIC GRAVITY 1.025 <=1.005->= 1.030 *URINE UROBILINOGEN 0.2 0.2-1.0 *URINE COLOR YELLOW STRAW/YELL/DK YELL URINE MICROSCOPIC - 02/06/17 13:48 WBC 1-5 /[HPF] 0-5 RBC 1-5 /[HPF] 0-1 MUCOUS THREADS MODERATE /[LPF] NEGATIVE MICROSCOPIC EXAM PERFORMED PERFORMED NRG SQUAMOUS EP. CELLS MANY /[LPF] NEG-FEW BACTERIA MODERATE /[HPF] NEGATIVE CULTURE URINE - 11/25/16 13:48 CULTURE URINE [id number] NRG CBC WITH PLATELET NO DIFFERENTIAL - 11/25/16 14:58 MPV 9.8 fL 7.4-10.4 PLATELETS 274 10*3/uL 159-386 WBC 10.5 10*3/uL 3.6-11.2 RBC 4.35 3.63-4.92 HEMOGLOBIN 13.3 11.0-14.3 HEMATOCRIT 37.7 % 31.2-41.9 MCV 86.8 fL 79.0-98.0 MCH 30.7 pg 27.0-33.0 MCHC 35.3 32.0-36.0 RDW 13.1 % 12.3-17.0 RDWSD 40.7 37.1-47.8 COMPREHENSIVE METABOLIC PANEL - 11/25/16 14:58 SODIUM 139 mmol/L 136-145 POTASSIUM 3.6 mmol/L 3.5-5.1 CHLORIDE 105 mmol/L 98-107 TCO2 26.3 mmol/L 21.0-32.0 *ANION GAP 7.7 mmol/L 8.0-16.0 BUN 18 7-18 CREATININE 0.91 0.55-1.02 *BUN/CREATININE RATIO 19.8 9.1-17.0 GLUCOSE 146 65-99 CALCIUM 8.9 8.5-10.1 BILIFUBIN TOTAL 0.80 0.20-1.00 TOTAL PROTEIN 7.7 6.4-8.2 ALBUMIN 3.7 3.4-5.0 *GLOBULIN 4.0 2.3-3.5 *A/G RATIO 0.9 1.5-2.2 ALK PHOS 64 U/L 46-116 ALT (SGPT) 33 U/L 16-63 AST (SGOT) 18 U/L 15-37 TSH - 11/25/16 14:58 TSH 0.344 u[IU]/L 0.340-4.820 GFR ESTIMATION - 11/25/16 14:58 *GFR EST NON AFR [place] >90 mL/min NRG *GRFA EST AFR AMER >90 mL/min NRG GLUCOSE (FASTING) - 11/26/16 06:47 GLUCOSE (FASTING) 80 65-99 ALCOHOL - 11/26/16 06:47 ALCOHOL <0.003 NRG Encounters ACCT No. Visit Date/Time Discharge Status Pt. Type Provider Facility Loc./Unit Complaint [id number] 05/17/2015 17:19:00 2014 18:14:00 DIS Inpatient Candida MARIE, [facility]10TN [id number] 05/22/2015 14:30:00 2014 14:30:00 CAN Outpatient Boris Angeles MD, [facility]
--- OUTSIDE RECORDS SUMMARY | 2017-01-23 14:55 | XMS REPORT | Summary of Care ---
Author Author Avtar Hicks, T. K. Organization Unknown Address [address], [place] [id number] Phone Unavailable Care Team Providers Care Automobile Assembly Supervisor Name Role Phone Mikey Hicks, Tejinder Unavailable Unavailable Jeff Yang PP Unavailable Unavailable Unavailable Functional Status Functional Status Health Issues* Name Dates Details Functional status health issues are not documented Status: Cognitive Status Health Issues* Name Dates Details Cognitive status health issues are not documented Status: Problems Name Dates Details Encounter for pre-employment examination (V70.5, Z02.1) Status: Active SVT (supraventricular tachycardia) (427.89, I47.1) Status: Active Anxiety (300.00, F41.1) Status: Active Lack of adequate sleep (V69.4, Z72.820) Status: Active control (V25.9, Z30.9) Status: Active Mood problem (V40.2, F48.9) Status: Active UTI (lower urinary tract infection) (599.0, N39.0) Status: Active Abdominal pain (789.00, R10.9) Status: Active 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 * Refills: 0 * Started 25-Jan-2015 ActiveKetorolac Tromethamine 10 MG Oral Tablet TAKE [...] smoked Vital Signs Date Test Result Details No Known Vitals to report Results Date Description Value Details Results not [...]
[2017-01-23] MEDS ORDERED: TRAM50TA4 PO (15:20)
[2017-01-23] MEDS ORDERED: HYDR50CA5 PO (15:20)
[2017-01-23] MEDS ORDERED: NORG1TAB12 PO (15:20)
[2017-01-23] MEDS ORDERED: VENL150T7 PO (15:20)
[2017-01-23] MEDS ORDERED: METO-277 PO (15:22)
[2017-01-23] MEDS ORDERED: RANI150T7 PO (15:22)
[2017-01-23] MEDS ORDERED: ACET-62 PO (15:22)
[2017-01-23] MEDS ORDERED: TRAZ-170 PO (15:22)
--- OUTSIDE RECORDS SUMMARY | 2017-01-23 15:36 | XMS REPORT | Continuity of Care Document ---
Author Author [facility] Organization [facility] Address Unknown Phone Unavailable Care Team Providers Care Packing Attendant Name Role Phone Alexy Yang MD Primary Care Physician [phone] Insurance Providers Payer Name Policy Number Subscriber Name Relationship [facility] [id number] Mary Christensen 19 Self / Same As Patient Chief Complaint and Reason for Visit Chief Complaint GI Complaint Reason for Visit Abdominal pain [id number] Problems Medical Problems Problem Onset Date Status [...] worrisome symptoms. * Emergency Department phone number: [phone], x [phone]* MEDICAL RECORD If you need copies of your X-rays, call [phone] x [phone]. If you need copies of [...] services. SERVICE BILLING [facility] Emergency Room Services [facility] Physician Services [facility] X-rays [place] [facility] Patients will receive bills for services from the appropriate provider. If you have any questions about your [facility] bill, our staff will be happy to assist you. Please call [phone], and ask for the billing department. THANK YOU for choosing [facility] as your emergency care provider! Functional [...] 22, 2014 12:01pm Not detected ng/mL () Fczdfi=198 ng/mL Creatinine January 12, 2015 10:50pm 0.94 [...] 22, 2014 12:01pm Not detected ng/mL () Banaig=650 ng/mL Urine Hydromorphone Confirmation December 22, 2014 [...] 22, 2014 12:01pm Not detected ng/mL () Iysnde=248 ng/mL Urine Nitrite January 12, 2015 11:05pm [...] Urine collection method Clean Catch Urine Specific [place] January 12, 2015 11:05pm >=1.030 1.005-1.030 Urine [...] Encounters Encounter Location Date/Time Departed Emergency Room [facility] 01/12/15 8:44pm Registered Clinic [facility] 01/12/15 3:49pm Departed Emergency Room [facility] 01/06/15 8:37pm Recent Diagnosis
--- OUTSIDE RECORDS SUMMARY | 2017-01-23 15:36 | XMS REPORT ---
Author Author GENERATED, SYSTEM Organization Unknown Address Unknown Phone Unavailable Care Team Providers Care Skin Care Consultant Name Role Phone UNASSIGNED DOCTORMD DOCTOR PP [phone] Reason For Visit Chief Complaint PRE EMP [...]
--- OUTSIDE RECORDS SUMMARY | 2017-01-23 15:36 | XMS REPORT ---
Author Author [employer], SYSTEM Organization Unknown Address Unknown Phone Unavailable Care Team Providers Care Parts Runner Name Role Phone UNASSIGNED DOCTOR , DOCTOR PP [phone] Reason For Visit Chief Complaint N/V/D UPPER [...]
--- OUTSIDE RECORDS SUMMARY | 2017-01-23 15:36 | XMS REPORT | Continuity of Care Document ---
Author Author [facility] Organization [facility] Address Unknown Phone Unavailable Care Team Providers Care Route Cdl Driver Name Role Phone Alexy Yang MD Primary Care Physician [phone] Insurance Providers Payer Name Policy Number Subscriber [...] worrisome symptoms. * Emergency Department phone number: [phone], x [phone]* MEDICAL RECORD If you need copies of your X-rays, call [phone] x [phone]. If you need copies of [...] SERVICE BILLING [employer] Emergency Room Services [facility] Physician Services [facility] X-rays [place] [facility] Patients will receive bills for services from the appropriate provider. If you have any questions about your [facility] bill, our staff will be happy to assist you. Please call [phone], and ask for the billing department. THANK YOU for choosing [facility] as your emergency care provider! Functional [...] 22, 2014 12:01pm Not detected ng/mL () Eynpur=660 ng/mL Creatinine June 11, 2015 7:40pm 0.78 [...] 22, 2014 12:01pm Not detected ng/mL () Hwwerm=265 ng/mL Urine Hydromorphone Confirmation December 22, 2014 [...] 22, 2014 12:01pm Not detected ng/mL () Rucayg=628 ng/mL Urine Nitrite January 12, 2015 11:05pm [...] Urine collection method Clean Catch Urine Specific [place] January 12, 2015 11:05pm >=1.030 1.005-1.030 Urine [...] Encounters Encounter Location Date/Time Departed Emergency Room [facility] 06/11/15 7:37pm Recent Diagnosis
--- OUTSIDE RECORDS SUMMARY | 2017-01-23 15:36 | XMS REPORT ---
Author Author GENERATED, SYSTEM Organization Unknown Address Unknown Phone Unavailable Care Team Providers Care Tie Man Name Role Phone UNASSIGNED DOCTOR , DOCTOR PP [phone] Reason For Visit Chief Complaint SVT Social [...]
--- OUTSIDE RECORDS SUMMARY | 2017-01-23 15:36 | XMS REPORT ---
Author Author GENERATED, SYSTEM Organization Unknown Address Unknown Phone Unavailable Care Team Providers Care Maintenance Of Way Superintendent Name Role Phone UNASSIGNED DOCTOR MD CYNTHIA DOCTOR PP [phone] Reason For Visit Chief Complaint COUGH, SOB, [...]
--- OUTSIDE RECORDS SUMMARY | 2017-01-23 15:36 | XMS REPORT ---
Author Author GENERATED, SYSTEM Organization Unknown Address Unknown Phone Unavailable Care Team Providers Care Sifting Operator Name Role Phone UNASSIGNED DOCTOR , DOCTOR PP [phone] Reason For Visit Reason for Visit from [...] AM:* #1 Office appointment: : Intake for Chemclin's * Address # 1 : [facility]: [address], [address], [place] [...] the responsibility of the patient or patient roofing sales representative to confirm the list of medications [...]
--- OUTSIDE RECORDS SUMMARY | 2017-01-23 15:36 | XMS REPORT ---
Author Author GENERATED, SYSTEM Organization Unknown Address Unknown Phone Unavailable Care Team Providers Care Ice Cream Chef Name Role Phone UNASSIGNED DOCTOR , DOCTOR PP [phone] Reason For Visit Chief Complaint RT LEG [...] MG/DL (65-99 MG/DL) GFR EST NON AFR [place] >90 ML/MIN GFRA EST AFR AMER >90 [...]
--- OUTSIDE RECORDS SUMMARY | 2017-01-23 15:36 | XMS REPORT ---
Author Author GENERATED, SYSTEM Organization Unknown Address Unknown Phone Unavailable Care Team Providers Care Brewing Director Name Role Phone UNASSIGNED DOCTOR MD CYNTHIA DOCTOR PP [phone] Reason For Visit Reason for Visit from [...] H (65-99 MG/DL) GFR EST NON AFR [place]BI[place] >90 ML/MIN GFRA EST AFR AMER >90 [...] 11:29 AM:* #1 Office appointment: : Isabel Timmons--[facility] * #1 Date/Time : 04/18/2015 8:20 AM * Address # 1 : [facility]: [address] * #2 Office appointment: : Serene Phillips--[facility] * #2 Date/Time : 05/02/2016 11:00 AM * Address # 2 : [facility]: [place] [address] * #3 Office appointment: : Renetta LagunasVefurw-DMYY-Vfbevm follow up * #3 Date/Time : 04/14/2015 3:00 PM * Address # 3 : [facility]: [place] [address] Procedures * Completed Procedure Code: 86.59 [...] the responsibility of the patient or patient telemarketing representative to confirm the list of medications [...]
--- OUTSIDE RECORDS SUMMARY | 2017-01-23 15:37 | XMS REPORT ---
Author Author GENERATED, SYSTEM Organization Unknown Address Unknown Phone Unavailable Care Team Providers Care Colon Therapist Name Role Phone UNASSIGNED DOCTOR MD CYNTHIA DOCTOR PP [phone] Reason For Visit Chief Complaint VAGINAL PAIN X 1 WEEK Social History Functional Status Vital Signs Results Microbiology from 10/30/2014 9:50 PM* CULTURE GENITAL (Preliminary Result) Specimen Number: [id number] Sample Collection Date/Time: 10/30/2014 9:50 PM Specimen Source: Genital Labia * GRAM STAIN Specimen Number: [id number] Sample Collection Date/Time: 10/30/2014 9:50 PM Specimen [...]
--- OUTSIDE RECORDS SUMMARY | 2017-01-23 15:37 | XMS REPORT ---
Author Author GENERATED, SYSTEM Organization Unknown Address Unknown Phone Unavailable Care Team Providers Care Sealing And Canceling Machine Operator Name Role Phone UNASSIGNED DOCTOR MD CYNTHIA DOCTOR PP [phone] Reason For Visit Reason for Visit from [...] H (65-99 MG/DL) GFR EST NON AFR VINCENTIAN >90 ML/MIN GFRA EST AFR AMER >90 [...] 11:29 AM:* #1 Office appointment: : Isabel Timmons--[facility] * #1 Date/Time : 04/18/2015 8:20 AM * Address # 1 : [facility]: [address] * #2 Office appointment: : Serene Phillips--[facility] * #2 Date/Time : 05/02/2016 11:00 AM * Address # 2 : [facility]: [address] * #3 Office appointment: : Renetta LagunasDsdpti-RKBE-Qllwnt follow up * #3 Date/Time : 04/14/2015 3:00 PM * Address # 3 : [facility]: [address] Procedures * Completed Procedure Code: 86.59 [...] the responsibility of the patient or patient key account representative to confirm the list of medications [...]
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
--- OUTSIDE RECORDS SUMMARY | 2017-01-23 15:37 | XMS REPORT ---
Author Author GENERATED, SYSTEM Organization Unknown Address Unknown Phone Unavailable Care Team Providers Care Swimming Coach Or Instructor Name Role Phone UNASSIGNED DOCTOR , DOCTOR PP [phone] Reason For Visit Reason for Visit from [...] H (65-99 MG/DL) *GFR EST NON AFR TRISTANIAN >90 ML/MIN *GFR EST AFR AMER >90 [...] 11/25/2016 1:48 PM* CULTURE URINE Specimen Number: [id number] Sample Collection Date/Time: 11/25/2016 1:48 PM Specimen [...] 2:00 PM * Address # 1 : [facility]: [address], [address], [place] - * #2 Office appointment: : Dr Ho * #2 Date/Time : 12/12/2016 1:00 PM * Address # 2 : [facility]: [address], [address], [place] [...] the responsibility of the patient or patient senior account representative to confirm the list of [...] 50 mg Tablet, Ordered By: MARIA ISABEL RNODON Directions: 1 to 2 tablets oral three [...]
--- OUTSIDE RECORDS SUMMARY | 2017-01-23 15:37 | XMS REPORT | Continuity of Care Document ---
Author Author [facility] Organization [facility] Address Unknown Phone Unavailable Care Team Providers Care Ultrasound Tech Name Role Phone Alexy Yang MD Primary Care Physician [phone] Insurance Providers Payer Name Policy Number Subscriber Name Relationship [facility] [id number] Mary Christensen 19 Self / Same As Patient Chief Complaint and Reason for Visit Chief Complaint Altered Neurologic Status Reason for Visit [id number] Problems Medical Problems Problem Onset Date Status [...] worrisome symptoms. * Emergency Department phone number: [phone], x [phone]* MEDICAL RECORD If you need copies of your X-rays, call [phone] x [phone]. If you need copies of [...] services. SERVICE BILLING REPUBL[facility] Emergency Room Services [facility] Physician Services [facility] X-rays [place] [facility] Patients will receive bills for services from the appropriate provider. If you have any questions about your [facility] bill, our staff will be happy to assist you. Please call [phone], and ask for the billing department. THANK YOU for choosing [facility] as your emergency care provider! Functional [...] 22, 2014 12:01pm Not detected ng/mL () Ioolqy=880 ng/mL Codeine Confirmation December 22, 2014 12:01pm Not detected ng/mL () Keuzow=864 ng/mL Urine Morphine Confirmation December 22, 2014 12:01pm Not detected ng/mL () Bgyfzs=572 ng/mL Acetaminophen Level September 04, 2014 4:52pm [...] Urine collection method Clean Catch Urine Specific [place] May 21, 2014 11:23pm >=1.030 1.005-1.030 Urine [...] Encounters Encounter Location Date/Time Departed Emergency Room [facility] 01/06/15 8:37pm Recent Diagnosis
--- OUTSIDE RECORDS SUMMARY | 2017-01-23 15:37 | XMS REPORT ---
Author Author GENERATED, SYSTEM Organization Unknown Address Unknown Phone Unavailable Care Team Providers Care Farm Machinery Assembler Name Role Phone UNASSIGNED DOCTOR , DOCTOR PP [phone] Reason For Visit Chief Complaint CRISIS Social [...] H (65-99 MG/DL) GFR EST NON AFR BERMUDIAN 88 ML/MIN GFRA EST AFR AMER >90 [...] PM* Status: Final Result URINALYSIS Specimen Number: [id number] Sample Collection Date/Time: 09/04/2014 10:00 PM Specimen [...]
--- OUTSIDE RECORDS SUMMARY | 2017-01-23 15:37 | XMS REPORT ---
Author Author GENERATED, SYSTEM Organization Unknown Address Unknown Phone Unavailable Care Team Providers Care Savings Teller Name Role Phone UNASSIGNED DOCTOR MD CYNTHIA DOCTOR PP [phone] Reason For Visit Chief Complaint EMPLOYEE HEALTH [...]
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
--- OUTSIDE RECORDS SUMMARY | 2017-01-23 15:39 | XMS REPORT ---
Author Author GENERATED, SYSTEM Organization Unknown Address Unknown Phone Unavailable Care Team Providers Care Web Publisher Name Role Phone UNASSIGNED DOCTOR MD CYNTHIA DOCTOR PP [phone] Reason For Visit Chief Complaint DIZZY,VOMITING Social [...] H (65-99 MG/DL) GFR EST NON AFR STATELESS >90 ML/MIN GFRA EST AFR AMER >90 [...] PM* Status: Final Result URINALYSIS Specimen Number: [id number] Sample Collection Date/Time: 12/21/2014 9:45 PM Specimen [...] - CT ABD/PELVIS W/ CONTRAST CPT Code(s): 73858-; ; ; INDICATION / CLINICAL HISTORY: Abdominal [...] - CT CEREBRAL W/O CONTRAST CPT Code(s): 78266-; ; ; INDICATION / CLINICAL HISTORY: \E\altered [...]
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
[2017-01-23] MEDS ORDERED: NORMAL SALINE 1,000 ML IV ONE ×2 (15:45→16:45)
--- NOTE | 2017-01-23 15:45 | NUR ---
EKG OBTAINED AND RESULTS GIVEN TO TALISHA GARCIA
--- NOTE | 2017-01-23 16:10 | NUR ---
STRAIGHT CATH FOR UA/UDS AT THIS TIME Addendum: 01/23/17 at 1616 by [email or web address] GANTRY RIGGER IN ROOM TO OBTAIN URINE FOR UA/UDS
[2017-01-23 16:29] LABS: BASOPHILS % (AUTO) 0.3 % (0-2); EOSINOPHILS # (AUTO) 0.1 T/MM3 (0-0.5); EOSINOPHILS % (AUTO) 1.3 % (0-4); HCT - HEMATOCRIT 39.2 % (36-46); HGB - HEMOGLOBIN 13.6 GM/DL (12-16); IMMATURE GRANULOCYTE # (AUTO) 0.03 T/MM3 (0.00-0.03); IMMATURE GRANULOCYTE % (AUTO) 0.3 % (0.0-0.5); LYMPHOCYTES # (AUTO) 1.6 T/MM3 (1-4.8); LYMPHOCYTES % (AUTO) 17.3 % (23-45); MEAN CORPUSCULAR HGB 30.4 UUG (26-34); MEAN CORPUSCULAR HGB CONC(MCHC 34.7 GM/DL (31-37); MEAN CORPUSCULAR VOLUME 87.5 UM3 (80-100); MEAN PLATELET VOLUME 10.2 UM3 (9.4-12.4); MONOCYTES # (AUTO) 0.6 T/MM3 (0-0.8); MONOCYTES % (AUTO) 6.2 % (0-9.0); NEUTROPHILS #(AUTO)-ABSOLUTE 6.9 T/MM3 (1.8-7.7); NEUTROPHILS % (AUTO) 74.6 % (33-66); RED BLOOD COUNT 4.48 M/MM3 (4.00-5.20); WBC - WHITE BLOOD COUNT 9.2 T/MM3 (4.5-11.0)
[2017-01-23 16:37] LABS: ACETAMINOPHEN < 10 UG/ML (10-30); ALBUMIN/GLOBULIN RATIO 1.1 RATIO (1.1-2.2); ALKALINE PHOSPHATASE 114 U/L (38-126); ALT (SGPT) 108 U/L (9-52); ANION GAP 9 MEQ/L (5-15); AST (SGOT) 61 U/L (14-36); BUN/CREATININE RATIO 24 RATIO (6-26); CALCIUM 9.3 MG/DL (8.4-10.2); CHLORIDE 108 MEQ/L (98-107); CO2 - CARBON DIOXIDE 27 MEQ/L (22-30); CREATININE 0.9 MG/DL (0.7-1.2); ETHANOL <10 MG/DL (<10); GLOMERULAR FILTRATION RATE 79; GLUCOSE 97 MG/DL (65-110); POTASSIUM 4.6 MEQ/L (3.6-5); SALICYLATE < 1.0 MG/DL (2-20); SODIUM 144 MEQ/L (134-144); TOTAL PROTEIN 7.6 G/DL (6.3-8.2)
[2017-01-23 16:50] LABS: AMPHETAMINE SCREEN,URINE NEGATIVE; BARBITURATE SCREEN,URINE NEGATIVE; BENZODIAZEPINES SCREEN,URINE NEGATIVE; CANNABINOID SCREEN,URINE NEGATIVE; COCAINE SCREEN,URINE NEGATIVE; METHADONE SCREEN, URINE NEGATIVE; METHAMPHETAMINE SCREEN, URINE NEGATIVE; OPIATE SCREEN,URINE NEGATIVE; PHENCYCLIDINE SCREEN,URINE NEGATIVE; TRICYCLIC ANTIDEPRESSANT,URINE NEGATIVE
--- NOTE | 2017-01-23 16:50 | NUR ---
STATUS PATIENT RESTING IN BED WITH EYES CLOSED
[2017-01-23 16:53] LABS: BLOOD, URINE NEGATIVE (NEGATIVE); COLOR,URINE YELLOW (YELLOW); LEUKOCYTE ESTERASE ,URINE NEGATIVE (NEGATIVE); NITRITE,URINE NEGATIVE (NEGATIVE); UROBILINOGEN,URINE 0.2 EU/DL (NORMAL)
--- NOTE | 2017-01-23 16:58 | NUR ---
TO RADIOLOGY FOR XRY AND CT
--- NOTE | 2017-01-23 17:21 | NUR ---
RETURNED FROM CT/XRY
--- NOTE | 2017-01-23 18:05 | NUR ---
ACTIVITY PATIENT ATTEMPTED TO GET OUT OF BED. SLOW MOVING. WOULD NOT OPEN EYES. TOOK A FEW STEPS BEFORE STATING THE ROOM IS SPINNING AND WANTED TO LAY BACK DOWN.
--- OUTSIDE RECORDS SUMMARY | 2017-01-23 18:28 | XMS REPORT ---
Author Author GENERATED, SYSTEM Organization Unknown Address Unknown Phone Unavailable Care Team Providers Care Chief Mechanical Officer Name Role Phone UNASSIGNED DOCTOR MD CYNTHIA DOCTOR PP [phone] Reason For Visit Chief Complaint COUGH, SOB, [...]
--- OUTSIDE RECORDS SUMMARY | 2017-01-23 18:28 | XMS REPORT ---
Author Author GENERATED, SYSTEM Organization Unknown Address Unknown Phone Unavailable Care Team Providers Care Medical Field Representative Name Role Phone UNASSIGNED DOCTOR MD CYNTHIA DOCTOR PP [phone] Reason For Visit Reason for Visit from [...] H (65-99 MG/DL) GFR EST NON AFR SENEGALESE >90 ML/MIN GFRA EST AFR AMER >90 [...] 11:29 AM:* #1 Office appointment: : Isabel Timmons--[facility] * #1 Date/Time : 04/18/2015 8:20 AM * Address # 1 : [facility]: [address] * #2 Office appointment: : Serene Phillips--[facility] * #2 Date/Time : 05/02/2016 11:00 AM * Address # 2 : [facility]: [address] * #3 Office appointment: : Renetta LagunasIdizvn-QDFZ-Pgzshj follow up * #3 Date/Time : 04/14/2015 3:00 PM * Address # 3 : [facility]: [place] [address] Procedures * Completed Procedure Code: 86.59 [...] the responsibility of the patient or patient human resources hr representative to confirm the list of medications [...]
--- OUTSIDE RECORDS SUMMARY | 2017-01-23 18:29 | XMS REPORT ---
Author Author GENERATED, SYSTEM Organization Unknown Address Unknown Phone Unavailable Care Team Providers Care Warehouse General Laborer Name Role Phone UNASSIGNED DOCTOR , DOCTOR PP [phone] Reason For Visit Chief Complaint N/V/D UPPER [...] H (65-99 MG/DL) GFR EST NON AFR SLOVENIAN >90 ML/MIN GFRA EST AFR AMER >90 [...]
--- OUTSIDE RECORDS SUMMARY | 2017-01-23 18:29 | XMS REPORT ---
Author Author GENERATED, SYSTEM Organization Unknown Address Unknown Phone Unavailable Care Team Providers Care Hand Booked Folder And Stitcher Name Role Phone UNASSIGNED DOCTORMD DOCTOR PP [phone] Reason For Visit Chief Complaint PRE EMP [...]
--- OUTSIDE RECORDS SUMMARY | 2017-01-23 18:29 | XMS REPORT ---
Author Author GENERATED, SYSTEM Organization Unknown Address Unknown Phone Unavailable Care Team Providers Care Customer Marketing Intern Name Role Phone UNASSIGNED DOCTOR , DOCTOR PP [phone] Reason For Visit Chief Complaint SVT Social [...]
--- OUTSIDE RECORDS SUMMARY | 2017-01-23 18:29 | XMS REPORT | Continuity of Care Document ---
Author Author [facility] LIVE HCIS Organization [facility] HCIS Address Unknown Phone Unavailable Care Team Providers Care Automatic Trimming Sewer Name Role Phone Alexy Yang MD Primary Care Physician [phone] Insurance Providers Payer Name Policy Number Subscriber Name Relationship [facility] [id number] Mary Christensen 19 Self / Same As Patient Chief Complaint and Reason for Visit Chief Complaint GI Complaint Reason for Visit Abdominal pain [id number] Problems Medical Problems Problem Onset Date Status [...] worrisome symptoms. * Emergency Department phone number: [phone], x [phone]* MEDICAL RECORD If you need copies of your X-rays, call [phone] x [phone]. If you need copies of [...] the billing parties for services. SERVICE BILLING [place] Emergency Room Services [facility] Physician Services [facility] X-rays [place] [facility] Patients will receive bills for services from the appropriate provider. If you have any questions about your [facility] bill, our staff will be happy to assist you. Please call [phone], and ask for the billing department. THANK YOU for choosing [facility] as your emergency care provider! [...] 22, 2014 12:01pm Not detected ng/mL () Kwrzku=854 ng/mL Creatinine January 12, 2015 10:50pm 0.94 [...] 22, 2014 12:01pm Not detected ng/mL () Wpcewk=659 ng/mL Urine Hydromorphone Confirmation December 22, 2014 [...] 22, 2014 12:01pm Not detected ng/mL () Exopwc=990 ng/mL Urine Nitrite January 12, 2015 11:05pm [...] Urine collection method Clean Catch Urine Specific [place] January 12, 2015 11:05pm >=1.030 1.005-1.030 Urine [...] Encounters Encounter Location Date/Time Departed Emergency Room [facility] 01/12/15 8:44pm Registered Clinic [facility] 01/12/15 3:49pm Departed Emergency Room [facility] 01/06/15 8:37pm Recent Diagnosis
--- OUTSIDE RECORDS SUMMARY | 2017-01-23 18:29 | XMS REPORT ---
Author Author GENERATED, SYSTEM Organization Unknown Address Unknown Phone Unavailable Care Team Providers Care Senior Construction Estimator Name Role Phone UNASSIGNED DOCTOR , DOCTOR PP [phone] Reason For Visit Chief Complaint RT LEG [...] MG/DL (65-99 MG/DL) GFR EST NON AFR LATVIAN >90 ML/MIN GFRA EST AFR AMER >90 [...]
--- OUTSIDE RECORDS SUMMARY | 2017-01-23 18:29 | XMS REPORT ---
Author Author GENERATED, SYSTEM Organization Unknown Address Unknown Phone Unavailable Care Team Providers Care Business Unit Controller Name Role Phone UNASSIGNED DOCTOR , DOCTOR PP [phone] Reason For Visit Reason for Visit from [...] AM:* #1 Office appointment: : Intake for [facility] * Address # 1 : [facility]: [address], [address], [place] [...] the responsibility of the patient or patient business services sales representative to confirm the list of [...]
--- OUTSIDE RECORDS SUMMARY | 2017-01-23 18:29 | XMS REPORT | Continuity of Care Document ---
Author Author [facility] LIVE HCIS Organization [facility] HCIS Address Unknown Phone Unavailable Care Team Providers Care Harness Racing Handicapper Name Role Phone Alexy Yang MD Primary Care Physician [phone] Insurance Providers Payer Name Policy Number Subscriber [...] worrisome symptoms. * Emergency Department phone number: [phone], x [phone]* MEDICAL RECORD If you need copies of your X-rays, call [phone] x [phone]. If you need copies of [...] services. SERVICE BILLING [place] Emergency Room Services [facility] Physician Services [facility] X-rays [place] [facility] Patients will receive bills for services from the appropriate provider. If you have any questions about your [facility] bill, our staff will be happy to assist you. Please call [phone], and ask for the billing department. THANK YOU for choosing [facility] as your emergency care provider! [...] 22, 2014 12:01pm Not detected ng/mL () Ukrwii=690 ng/mL Creatinine June 11, 2015 7:40pm 0.78 [...] 22, 2014 12:01pm Not detected ng/mL () Kwouwd=101 ng/mL Urine Hydromorphone Confirmation December 22, 2014 [...] 22, 2014 12:01pm Not detected ng/mL () Nfxdmx=816 ng/mL Urine Nitrite January 12, 2015 11:05pm [...] Urine collection method Clean Catch Urine Specific [place] January 12, 2015 11:05pm >=1.030 1.005-1.030 Urine [...] Encounters Encounter Location Date/Time Departed Emergency Room [facility] 06/11/15 7:37pm Recent Diagnosis
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
--- OUTSIDE RECORDS SUMMARY | 2017-01-23 18:30 | XMS REPORT ---
Author Author GENERATED, SYSTEM Organization Unknown Address Unknown Phone Unavailable Care Team Providers Care Wind Farm Operations Manager Name Role Phone UNASSIGNED DOCTOR , DOCTOR PP [phone] Reason For Visit Chief Complaint CRISIS Social [...] H (65-99 MG/DL) GFR EST NON AFR IRAQI 88 ML/MIN GFRA EST AFR AMER >90 [...] PM* Status: Final Result URINALYSIS Specimen Number: [id number] Sample Collection Date/Time: 09/04/2014 10:00 PM Specimen [...]
--- OUTSIDE RECORDS SUMMARY | 2017-01-23 18:30 | XMS REPORT ---
Author Author GENERATED, SYSTEM Organization Unknown Address Unknown Phone Unavailable Care Team Providers Care Industrial Custodian Name Role Phone UNASSIGNED DOCTOR MD CYNTHIA DOCTOR PP [phone] Reason For Visit Chief Complaint VAGINAL PAIN X 1 WEEK Social History Functional Status Vital Signs Results Microbiology from 10/30/2014 9:50 PM* CULTURE GENITAL (Preliminary Result) Specimen Number: [id number] Sample Collection Date/Time: 10/30/2014 9:50 PM Specimen Source: Genital Labia * GRAM STAIN Specimen Number: [id number] Sample Collection Date/Time: 10/30/2014 9:50 PM Specimen [...]
--- OUTSIDE RECORDS SUMMARY | 2017-01-23 18:30 | XMS REPORT ---
Author Author GENERATED, SYSTEM Organization Unknown Address Unknown Phone Unavailable Care Team Providers Care Operations Dispatcher Name Role Phone UNASSIGNED DOCTOR MD CYNTHIA DOCTOR PP [phone] Reason For Visit Chief Complaint EMPLOYEE HEALTH [...]
--- OUTSIDE RECORDS SUMMARY | 2017-01-23 18:30 | XMS REPORT | Continuity of Care Document ---
Author Author [facility] LIVE HCIS Organization [facility] HCIS Address Unknown Phone Unavailable Care Team Providers Care Civil Engineering Professor Name Role Phone Alexy Yang MD Primary Care Physician [phone] Insurance Providers Payer Name Policy Number Subscriber Name Relationship [facility] [id number] Mary Christensen 19 Self / Same As Patient Chief Complaint and Reason for Visit Chief Complaint Altered Neurologic Status Reason for Visit [id number] Problems Medical Problems Problem Onset Date Status [...] worrisome symptoms. * Emergency Department phone number: [phone], x [phone]* MEDICAL RECORD If you need copies of your X-rays, call [phone] x [phone]. If you need copies of [...] services. SERVICE BILLING [place] Emergency Room Services [facility] Physician Services [facility] X-rays [place] [facility] Patients will receive bills for services from the appropriate provider. If you have any questions about your [facility] bill, our staff will be happy to assist you. Please call [phone], and ask for the billing department. THANK YOU for choosing [facility] as your emergency care provider! Functional [...] 22, 2014 12:01pm Not detected ng/mL () Jxnkdh=828 ng/mL Codeine Confirmation December 22, 2014 12:01pm Not detected ng/mL () Jgcrvn=082 ng/mL Urine Morphine Confirmation December 22, 2014 12:01pm Not detected ng/mL () Mbymwy=003 ng/mL Acetaminophen Level September 04, 2014 4:52pm [...] Urine collection method Clean Catch Urine Specific [place] May 21, 2014 11:23pm >=1.030 1.005-1.030 Urine [...] Encounters Encounter Location Date/Time Departed Emergency Room [facility] 01/06/15 8:37pm Recent Diagnosis
--- OUTSIDE RECORDS SUMMARY | 2017-01-23 18:30 | XMS REPORT ---
Author Author GENERATED, SYSTEM Organization Unknown Address Unknown Phone Unavailable Care Team Providers Care Greenhouse Specialist Name Role Phone UNASSIGNED DOCTOR , DOCTOR PP [phone] Reason For Visit Reason for Visit from [...] H (65-99 MG/DL) *GFR EST NON AFR MOROCCAN >90 ML/MIN *GFR EST AFR AMER >90 [...] 11/25/2016 1:48 PM* CULTURE URINE Specimen Number: [id number] Sample Collection Date/Time: 11/25/2016 1:48 PM Specimen [...] the responsibility of the patient or patient tax representative to confirm the list of medications [...]
--- OUTSIDE RECORDS SUMMARY | 2017-01-23 18:31 | XMS REPORT ---
Author Author GENERATED, SYSTEM Organization Unknown Address Unknown Phone Unavailable Care Team Providers Care Soap Inspector Name Role Phone UNASSIGNED DOCTOR MD CYNTHIA DOCTOR PP [phone] Reason For Visit Reason for Visit from [...] H (65-99 MG/DL) GFR EST NON AFR MOZAMBICAN >90 ML/MIN GFRA EST AFR AMER >90 [...] 11:29 AM:* #1 Office appointment: : Isabel Timmons--[facility] * #1 Date/Time : 04/18/2015 8:20 AM * Address # 1 : [facility]: [address] * #2 Office appointment: : Serene Phillips--[facility] * #2 Date/Time : 05/02/2016 11:00 AM * Address # 2 : [facility]: [place] [address] * #3 Office appointment: : Renetta LagunasMneigw-[facility]BE-Cerejb follow up * #3 Date/Time : 04/14/2015 3:00 PM * Address # 3 : [facility]: [place] [address] Procedures * Completed Procedure Code: 86.59 [...] the responsibility of the patient or patient primary care sales representative to confirm the list of [...]
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
--- OUTSIDE RECORDS SUMMARY | 2017-01-23 18:32 | XMS REPORT ---
Author Author GENERATED, SYSTEM Organization Unknown Address Unknown Phone Unavailable Care Team Providers Care Mathematics Professor Name Role Phone UNASSIGNED DOCTOR MD CYNTHIA DOCTOR PP [phone] Reason For Visit Chief Complaint DIZZY,VOMITING Social [...] H (65-99 MG/DL) GFR EST NON AFR CZECH >90 ML/MIN GFRA EST AFR AMER >90 [...] PM* Status: Final Result URINALYSIS Specimen Number: [id number] Sample Collection Date/Time: 12/21/2014 9:45 PM Specimen [...] - CT ABD/PELVIS W/ CONTRAST CPT Code(s): 71539-; ; ; INDICATION / CLINICAL HISTORY: Abdominal [...] - CT CEREBRAL W/O CONTRAST CPT Code(s): 02017-; ; ; INDICATION / CLINICAL HISTORY: \E\altered [...]
--- NOTE | 2017-01-23 18:37 | NUR ---
ROOM ASSIGNED RM [id number] ASSIGNED MEDICAL OBSERVATION.
--- NOTE | 2017-01-23 18:40 | ERPDOC ---
Departure Disposition Decision Date: Jan 23, 2017 Disposition Decision Time: 18:00 Disposition: 02 TO [facility] Impression Impression Impression: Primary Impression: Altered mental status Altered mental status type: unspecified Qualified Codes: R41.82 - Altered mental status, unspecified Additional Impression: Dizziness Severity: Moderate Condition: Improved Seen By: Physician only Referrals: WINSOME KIRAN (Family) Problems/Meds/Labs Reviewed?: Yes Medications reviewed and manag: Yes Follow up care ordered?: Yes Mental Status: Alert, Oriented HPI - General Medical General Chief Complaint: Dizzy Stated Complaint: ALTERED MENTAL STATUS Time Seen by Provider: 15:10 Source: patient, family Exam Limitations: no limitations HPI - General Medical Initial Comments 12-year-old female presents to the emergency department with a chief complaint of altered mental state. Patient has been feeling ill for the past "few days." This feeling of illness consisting of nausea, frontal headache, and feeling like she is having difficulty urinating. Patient describes the headache as a typical frontal headache that is moderate in nature without radiation. She does not note any exacerbating or remitting factors. 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 She was transported to the emergency department via EMS. Patient denies any other complaints or associated symptoms. Family is at bedside. Symptoms have been persisted in nature since onset. Symptoms had a gradual progression. Occurred At: home Onset: Gradual Allergies: Coded Allergies: NKDA (Unverified Allergy, Mild, 06/11/10) Past History Past Medical History Psychological: depression Surgical History Denies Surgeries Family History Family History: Negative Social History Smoking Status: Never smoker Substance Use Type: does not use Alcohol Intake: none Marital Status: Single Review of Systems Constitutional Constitutional: DENIES: chills, fever Eyes General: DENIES: erythema, exudate Lids/Accessories: DENIES: erythema, swelling Vision: DENIES: acuity, blurring ENMT Ears: DENIES: drainage, erythema Hearing: DENIES: hearing loss Balance: DENIES: ataxia, falling to one side Sinuses: DENIES: congestion, pain Nose: DENIES: nosebleeds, pain Mouth/Throat: DENIES: painful swallowing, sore throat Teeth: DENIES: pain Jaw: DENIES: pain Cardiovascular Cardiac: DENIES: chest pain, dyspnea on exertion Rhythm/Rate: DENIES: irregular beat, palpitations Vascular: DENIES: pedal edema, unilateral swelling Pulmonary Respiratory: DENIES: cough, dyspnea, pleuritic chest pain, sputum GI Upper Abdomen: DENIES: nausea, pain, vomiting Lower Abdomen: DENIES: diarrhea, pain General: DENIES: dysuria, frequency Musculoskeletal General: DENIES: joint pain, tenderness Integumentary Skin: DENIES: itching, rash Neurological General: headache, DENIES: numbness, weakness Psychiatric Psychiatric: DENIES: emotional instability, suicidal ideation/attempt Endocrine Endocrine: DENIES: polydipsia, polyphagia Hematologic/Lymphatic Hematologic/Lymphatic: DENIES: frequent nosebleeds, lymphadenopathy Allergic/Immunological Allergic/Immunoligical: DENIES: allergic reactions, hives Physical Exam General General Nourishment: well nourished, well developed, appears stated age, no acute distress, adult General Body Habitus: well groomed Vitals and Pain First Documented Vital Signs Date Time Temp Pulse Resp B/P Pulse Ox O2 Delivery O2 Flow Rate FiO2 01/23/17 14:47 97.8 78 12 131/63 99 Room Air Weight: Kilograms: 117.900 Height (feet): 5 Height (inches): 4.00 Triage Pain Scale: RN VS reviewed by Provider: Yes Normal Exams: Head: Normocephalic w/o trauma Eyes: Pupils are PERRLA w/ EOMI, No scleral icterus, irritation, or foreign bodies noted ENMT: No facial trauma, nasal exudates, pharyngeal erythema, or exudates are noted Dental: No fractured, loose, or missing teeth noted Neck: Full range of motion, without adenopathy, JVD, bruits or thyromegaly Chest/Resp: Clear all smith, with good airflow, and symmetry bilaterally CV: Regular rate and rhythm, without murmur or gallop, Pulses 2+ all extremities, capillary refill, <2 seconds all ext., no pedal edema noted Abdomen: Bowel sounds positive, soft, non-tender, non-distended, no hepatosplenomegaly, masses or bruits noted Lymphatic: No lymphadenopathy, or lymphedema noted Musculoskeletal: No tenderness, or deformity noted, good range of motion, all extremities Integumentary: No rashes, hives, or bruising noted, hair and nails, without abnormality Neurologic: Patient is alert, and oriented, cranial nerves, motor/sensory/ cerebellar, exams w/o gross deficits, to observation Psychiatric: Patient exhibits, appropriate attention, emotion and affect Differential Diagnoses Considering: Depression, Drug Overdose, Medication Effect, Metabolic, UTI Progress Results/Orders Orders Procedure Category Date Status Time Cbc W/Auto LAB 01/23/17 Complete Diff-Reflex Manual Cmp - Comprehensive LAB 01/23/17 Complete Metabolic Troponin I W LAB 01/23/17 Complete Hemolysis Index EKG EKG 01/23/17 Taken Chest 1 View RAD 01/23/17 Taken 15:23 Catheterize For Ua FRANDY 01/23/17 In Process 15:23 Ua, Dip Wreflex LAB 01/23/17 Complete Microsc & Electrolysis Operator 15:23 LAB 01/23/17 Complete Qualitative, Urine 15:23 Drug Screen LAB 01/23/17 Complete [place] [facility] [place] Ethanol LAB 01/23/17 Complete Acetaminophen LAB 01/23/17 Complete Salicylate LAB 01/23/[address] Head W/O Contrast CT 01/23/17 Taken 15:23 Normal Saline (Normal PHA 01/23/17 Complete Saline Iv) 15:45 Normal Saline (Normal PHA 01/23/17 Complete Saline Iv) 16:45 Place In Facility: ED ADM 01/23/17 Transmitted 18:14 Lab Results Laboratory Tests Test 01/23/17 15:54 01/23/17 16:20 01/23/17 16:21 01/23/17 17:06 Turbidity < 20 Sodium Level 144MEQ/L Potassium Level 4.6MEQ/L Chloride Level 108MEQ/L Carbon Dioxide Level 27MEQ/L Anion Gap 9MEQ/L Blood Urea Nitrogen 22.0MG/DL Creatinine 0.9MG/DL Glomerular Filtration Rate Calc 79 BUN/Creatinine Ratio 24RATIO Glucose Level 97MG/DL Calculated Osmolality 280MOSM/KG Calcium Level 9.3MG/DL Total Bilirubin 1.20MG/DL Icterus Index < 2 Aspartate Amino Transf (AST/SGOT) 61U/L Alanine Aminotransferase (ALT/SGPT) 108U/L Alkaline Phosphatase 114U/L Troponin I < 0.012ng/ml Total Protein 7.6G/DL Albumin 4.0G/DL Globulin 3.6G/DL Albumin/Globulin Ratio 1.1RATIO Chemistry Specimen Hemolysis < 15 Salicylates Level < 1.0MG/DL Acetaminophen Level < 10UG/ML Alcohol, Quantitative <10MG/DL Urine Collection Type Larson indwelling Urine Color Yellow Urine Turbidity Clear Urine pH 7.0 Urine Specific [place] 1.015 Urine Protein Negative Urine Glucose (UA) Negative Urine Ketones Negative Urine Blood Negative Urine Nitrite Negative Urine Bilirubin Negative Urine Urobilinogen 0.2EU/DL Urine Leukocyte Esterase Negative Urinalysis Comment Microscopic not ind. Urine Test Negative Urine Opiates Screen NegativeNG/ML Urine Oxycodone Screen NegativeNG/ML Urine Methadone Screen NegativeNG/ML Urine Propoxyphene Screen NegativeNG/ML Urine Barbiturates Screen NegativeNG/ML Urine Tricyclic Antidepressants NegativeNG/ML Urine Phencyclidine Screen NegativeNG/ML Urine Amphetamines Screen NegativeNG/ML Urine Methamphetamines Screen NegativeNG/ML Urine Benzodiazepines Screen NegativeNG/ML Urine Cocaine Screen NegativeNG/ML Urine Cannabinoids Screen NegativeNG/ML White Blood Count 9.2T/MM3 Red Blood Count 4.48M/MM3 Hemoglobin 13.6GM/DL Hematocrit 39.2% Mean Corpuscular Volume 87.5UM3 Mean Corpuscular Hemoglobin 30.4UUG Mean Corpuscular Hemoglobin Concent 34.7GM/DL RDW Standard Deviation 39.4FL Platelet Count 272T/MM3 Mean Platelet Volume 10.2UM3 Immature Granulocyte % (Auto) 0.3% Neutrophils (%) (Auto) 74.6% Lymphocytes (%) (Auto) 17.3% Monocytes (%) (Auto) 6.2% Eosinophils (%) (Auto) 1.3% Basophils (%) (Auto) 0.3% Absolute Immature Granulocyte (auto 0.03T/MM3 Absolute Neutrophils (auto) 6.9T/MM3 Absolute Lymphocytes (auto) 1.6T/MM3 Absolute Monocytes (auto) 0.6T/MM3 Absolute Eosinophils (auto) 0.1T/MM3 Absolute Basophils (auto) 0.0T/MM3 Lab Scanned Report REFERENCE [id number] Medications Current ED Medications Sodium Chloride 1,000 ml @ 999 mls/hr Q1H1M ONCE IV Last administered on t 19:33; Start 01/23/17 at 15:45; Stop 01/23/17 at 16:45; Status DC Sodium Chloride (Normal Saline IV) 1,000 ml @ 999 mls/hr Q1H1M ONCE IV ; Start 01/23/17 at 16:45; Stop 01/23/17 at 17:45; Status DC Progress Progress Labs/imaging were discussed in detail with the patient and family and questions are answered. Patient's workup in the emergency department is benign. Patient is given IV hydration. Patient is still behaving differently than her baseline although she is alert and oriented per family members. Patient is discussed with Dr. Webb and will be admitted to the service of Dr. Melendez for observation. Patient and family are in agreement with the current plan of management. As the patient's work up in the emergency department was benign, the patient will undergo lumbar puncture which will be followed by Dr. Melendez. Patient is admitted to the hospital in improved condition. No further orders from accepting or consulting physicians who were in agreement with the current plan of management. Patient is admitted to the hospital in improved condition. Results of the lumbar puncture will be followed by the hospitalist and treated accordingly. EKG EKG : Rate: 60-100 Rhythm: sinus [place]: normal QRS: normal Intervals: normal ST/T: normal Interpreted by: signing physician Xray Xray : Xray: CXR Portable Interpretation: Normal, Interpreted by Me, Reviewed Written Report CT CT : CT: Head no contrast Interpretation: Normal MAXIMINO CASTORENA DO Jan 23, 2017 18:40
--- NOTE | 2017-01-23 18:50 | NUR ---
SHARLENE TAP CONSENT SIGNED AND SPINAL TAP CREW SCHEDULER W/ MILLIE RN IN ASSIST.
--- NOTE | 2017-01-23 19:25 | NUR ---
REPORT REPORT GIVEN TO JUSTIN TINEO.
--- NOTE | 2017-01-23 19:33 | HPPDOC ---
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 History is partially provided by the patient's grandfather reports that the patient developed a sore throat 5 days prior to admission and hasn't been feeling particularly good since that time. Yesterday she was weak and tired described lightheadedness. He saw her prior to work this morning at which time she indicated she felt about the same. The patient reports that she had a bad headache this morning and that it felt like the room was spinning. She felt like she would pass out but decided she needed to go to work. Her grandfather notes that her speech was fairly normal when he started this morning. Patient additionally describes having nausea all day today. 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 No seizure activity or incontinence was reported and she subsequently presented to the emergency room for evaluation. The patient currently says she feels tired and her grandfather reports excessive somnolence and that all she does is sleep the last day or 2. She's had no vomiting and the patient insists that her oral intake has been good despite the recent sore throat. Attempt to ambulate the patient in the emergency room were limited by describe vertigo and patient's inability to open her eyes while standing. She's being hospitalized on observation basis following spinal tap been performed in the ER at this time. Past Medical History Past Medical History 1. History SVT treated with cardiac ablation at [place] 06/03, managed by Dr. Farmer 2. 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 Gout 4. Depression with history of suicidal gestures as an adolescent. Surgical History Patient's Surgical History: 1. Cardiac ablation 2. Tonsillectomy Current Medications Home Meds Reported Medications Ranitidine HCl (Ranitidine HCl) 150 Mg Tablet, 150 MG PO DAILY Y for REFLUX 01/23/17 Acetaminophen (Acetaminophen) 500 Mg Tablet, 500 MG PO Q4H Y for PAIN 01/23/17 Metoprolol Succinate (Metoprolol Succinate) 50 Mg Tab.er.24h, 50 MG PO DAILY 01/23/17 Trazodone HCl (Trazodone HCl) 50 Mg Tablet, 50 MG PO HS Y for PRN ORDERS 01/23/17 Tramadol HCl (Tramadol HCl) 50 Mg Tablet, 50 MG PO TID Y for PAIN 01/23/17 Venlafaxine HCl (Venlafaxine HCl ER) 150 Mg Tab.er.24, 150 MG PO DAILY 01/23/17 Hydroxyzine Pamoate (Hydroxyzine Pamoate) 50 Mg Capsule, 50 MG PO TID 01/23/17 Norgestimate-Ethinyl Estradiol (Sprintec 28 Day Tablet) 1 Tab Tablet, 1 TAB PO DAILY 01/23/17 Allergies: Coded Allergies: NKDA (Unverified Allergy, Mild, 06/11/10) Family History Family History: Yrzqzk-dji-Jcokgpv's lymphoma Maternal grandmother-SVT, A. fib, CVA Maternal grandfather-prostate cancer Paternal grandmother- COPD Social History Smoking Status: Never smoker Substance Use Type: does not use Alcohol Intake: occasionally, a few times a month Marital Status: Single Current Occupational Status: employed ([employer] at [employer]) Social History Comments PCP-Dr. 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 Patient indicates that she's had some recent sinus congestion. She chronically has intermittent palpitations but has not had prolonged episodes of SVT since the ablation. She chronically feels like she can't fully empty her bladder but denies dysuria. Remainder of review of systems is negative or as per history of present illness. Physical Exam General Vital Signs Vital Signs Date Time Temp Pulse Resp B/P Pulse Ox O2 Delivery O2 Flow Rate FiO2 01/23/17 17:30 86 120/57 98 Room Air 01/23/17 14:47 97.8 12 EXAM General-obese female, NAD, psychomotor retardation, verbal responses slow in very soft voice HEENT-pupils dilated bilaterally-approximately 6 mm but reactive briskly to light, conjugate gaze with intact extraocular muscles, sclera anicteric, conjunctiva clear, patient keeps eyes closed but will alter them on request. Facial structure symmetric, oropharynx clear and without erythema or exudate posteriorly. Neck supple-can flex chin to chest, rotates neck without resistance. No cervical adenopathy or tenderness present Lungs-respirations nonlabored, decreased airflow throughout but breath sounds clear Cardiac-regular rhythm, S1-S2 Abd-soft, nontender, without palpable mass, bowel sounds diminished but present Ext-without edema Skin-without rash or evidence of wounds Neuro-branch operation evaluation manager 4/5 symmetrically, proximal and distal lower extremity power 4/5 symmetrically, sensation intact to light touch and cold 4 extremities, no tremors present, very slow movements. Cranial nerves 3-12 grossly intact. Psych-grossly oriented but all responses delayed Height (Feet): 5 Height (Inches): 4.00 Neurologic RN Documented GCS Eye Opening: Verbal: Motor: Total: Laboratory Laboratory Tests Test 01/23/17 15:54 01/23/17 16:20 01/23/17 16:21 01/23/17 17:06 Turbidity < 20 Sodium Level 144MEQ/L Potassium Level 4.6MEQ/L Chloride Level 108MEQ/L Carbon Dioxide Level 27MEQ/L Anion Gap 9MEQ/L Blood Urea Nitrogen 22.0MG/DL Creatinine 0.9MG/DL Glomerular Filtration Rate Calc 79 BUN/Creatinine Ratio 24RATIO Glucose Level 97MG/DL Calculated Osmolality 280MOSM/KG Calcium Level 9.3MG/DL Total Bilirubin 1.20MG/DL Icterus Index < 2 Aspartate Amino Transf (AST/SGOT) 61U/L Alanine Aminotransferase (ALT/SGPT) 108U/L Alkaline Phosphatase 114U/L Troponin I < 0.012ng/ml Total Protein 7.6G/DL Albumin 4.0G/DL Globulin 3.6G/DL Albumin/Globulin Ratio 1.1RATIO Chemistry Specimen Hemolysis < 15 Salicylates Level < 1.0MG/DL Acetaminophen Level < 10UG/ML Alcohol, Quantitative <10MG/DL Urine Collection Type Larson indwelling Urine Color Yellow Urine Turbidity Clear Urine pH 7.0 Urine Specific [place] 1.015 Urine Protein Negative Urine Glucose (UA) Negative Urine Ketones Negative Urine Blood Negative Urine Nitrite Negative Urine Bilirubin Negative Urine Urobilinogen 0.2EU/DL Urine Leukocyte Esterase Negative Urinalysis Comment Microscopic not ind. Urine Test Negative Urine Opiates Screen NegativeNG/ML Urine Oxycodone Screen NegativeNG/ML Urine Methadone Screen NegativeNG/ML Urine Propoxyphene Screen NegativeNG/ML Urine Barbiturates Screen NegativeNG/ML Urine Tricyclic Antidepressants NegativeNG/ML Urine Phencyclidine Screen NegativeNG/ML Urine Amphetamines Screen NegativeNG/ML Urine Methamphetamines Screen NegativeNG/ML Urine Benzodiazepines Screen NegativeNG/ML Urine Cocaine Screen NegativeNG/ML Urine Cannabinoids Screen NegativeNG/ML White Blood Count 9.2T/MM3 Red Blood Count 4.48M/MM3 Hemoglobin 13.6GM/DL Hematocrit 39.2% Mean Corpuscular Volume 87.5UM3 Mean Corpuscular Hemoglobin 30.4UUG Mean Corpuscular Hemoglobin Concent 34.7GM/DL RDW Standard Deviation 39.4FL Platelet Count 272T/MM3 Mean Platelet Volume 10.2UM3 Immature Granulocyte % (Auto) 0.3% Neutrophils (%) (Auto) 74.6% Lymphocytes (%) (Auto) 17.3% Monocytes (%) (Auto) 6.2% Eosinophils (%) (Auto) 1.3% Basophils (%) (Auto) 0.3% Absolute Immature Granulocyte (auto 0.03T/MM3 Absolute Neutrophils (auto) 6.9T/MM3 Absolute Lymphocytes (auto) 1.6T/MM3 Absolute Monocytes (auto) 0.6T/MM3 Absolute Eosinophils (auto) 0.1T/MM3 Absolute Basophils (auto) 0.0T/MM3 Lab Scanned Report REFERENCE [id number] Radiology Chest x-ray reviewed by myself-unremarkable CT head reviewed by myself-negative for acute pathology Assessment & Plan Assessment Altered mental status/somnolence Headache Vertigo Mydriasis Transaminitis Obesity SVT, status post ablation Depression Gela is hospitalized for further observation, serial neurological checks, and IV fluids. Initial laboratory data is unremarkable and urine drug screen negative. Hydroxyzine and trazodone may be responsible for some of the patient' s presenting symptoms although both appear to be chronic medications. Trazodone , hydroxyzine, and tramadol will all be held. Liver enzymes have been noted to be mildly abnormal in the past, especially the ALT (dating back to 2009). Gela reports past vaccination for hepatitis B and C. Ammonia level will be screened with morning labs and sonogram of the right upper quadrant may be pursued if she is not clinically improved. SCDs for DVT prophylaxis. Plan/Intensity of Service Discussed with Dr. Smith, x-rays reviewed by myself. Discussed with patient's grandfather who provide supplemental history. Laboratory data review an old laboratory data reviewed. DVT Prophylaxis: SCD'S Code Status Full Code Hospital Course Summary Disclaimer The hospital course summary below is not to be considered part of the above Progress Note. Hospital Course Summary 01/23/17 Gela is hospitalized for further observation after presenting with headache/ vertigo/altered mental status. Monitor serial neurological checks; continue IV fluids. Initial laboratory data is unremarkable and urine drug screen negative. Hydroxyzine and trazodone may be responsible for some of the patient's presenting symptoms although both appear to be chronic medications. Trazodone, hydroxyzine, and tramadol will all be held. Liver enzymes have been noted to be mildly abnormal in the past, especially the ALT (dating back to 2009). Gela reports past vaccination for hepatitis B and C. Ammonia level will be screened with morning labs and sonogram of the right upper quadrant may be pursued if she is not clinically improved. SCDs for DVT prophylaxis. SERGIO VAUGHN MD Jan 23, 2017 19:16
--- NOTE | 2017-01-23 19:34 | PDANESLUMB ---
Consult-Lumbar Puncture Date and Time DATE: 01/23/17 TIME: 19:25 Diagnosis mental changes Allergies: Coded Allergies: NKDA (Unverified Allergy, Mild, 06/11/10) Ht/Wt/BMI Height: 5 ' 4.00 " Weight: 117.900 kg BMI: 44.0 kg/m2 Initial Vital Signs First Documented Vital Signs Date Time Temp Pulse Resp B/P Pulse Ox O2 Delivery O2 Flow Rate FiO2 01/23/17 14:47 97.8 78 12 131/63 99 Room Air Post Vital Sign Vital Signs Date Time Temp Pulse Resp B/P Pulse Ox O2 Delivery O2 Flow Rate FiO2 01/23/17 17:30 86 120/57 98 Room Air 01/23/17 14:47 97.8 12 Medications Acetaminophen (Acetaminophen) 500 Mg Tablet, 500 MG PO Q4H PRN for PAIN, ( Reported) Last Taken: on 01/22/17 Hydroxyzine Pamoate (Hydroxyzine Pamoate) 50 Mg Capsule, 50 MG PO TID, (Reported) Last Taken: on 01/23/17 0800 Metoprolol Succinate (Metoprolol Succinate) 50 Mg Tab.er.24h, 50 MG PO DAILY, (Reported) Last Taken: on 01/22/17 1200 Norgestimate-Ethinyl Estradiol (Sprintec 28 Day Tablet) 1 Tab Tablet, 1 TAB PO DAILY, (Reported) Last Taken: on 01/23/17 0800 Ranitidine HCl (Ranitidine HCl) 150 Mg Tablet, 150 MG PO DAILY PRN for REFLUX, (Reported) Last Taken: on Unknown Date & Time Tramadol HCl (Tramadol HCl) 50 Mg Tablet , 50 MG PO TID PRN for PAIN, (Reported) Last Taken: on 01/22/17 2200 Trazodone HCl (Trazodone HCl) 50 Mg Tablet, 50 MG PO HS PRN for PRN ORDERS, (Reported) Last Taken: on 01/16/17 Venlafaxine HCl (Venlafaxine HCl ER) 150 Mg Tab.er.24, 150 MG PO DAILY, (Reported) Last Taken: on 01/23/17 0800 Patient History I have evaluated this patient and found no changes in the patient's history. Pertinent Findings Laboratory Tests 01/23/17 15:54 01/23/17 16:21 Test 01/23/17 16:20 Urine Test Negative (NEGATIVE) Physical Exam Respiratory: Bilat breath sounds equal, Lungs clear Cardiovascular: FOUND Regular rate, rhythm Procedure Position: LLD Prep: chlorhexadine/ETOH, drape, sterile technique Ultrasound Used?: Yes Procedure Consulted for lumbar puncture by Dr. Rick Smith. After patient was reassessed and reevaluated and lab evaluated, patient was placed left lateral. Ultrasound was view for placement of spinal needle. Back was prepped with chlorohexidine. Xylocaine 1% 5 ml for skin infiltration was used. Second attempt was successful with 22 g Quinke needle at L2-3. + clear free flow csf; - heme; - parasthesia. Opening pressure was 19. Four test tube was filled in order with approximately 2 ml of csf per tube. After done needle was removed and band aid was applied. Patient tolerated the procedure well. SHERRY Cook CRNA, CRNA Jan 23, 2017 19:34
[2017-01-23 19:42] LABS: GLUCOSE,CSF 59 MG/DL (40-70); PROTEIN,CSF 18 MG/DL (12-60)
--- NOTE | 2017-01-23 19:42 | NUR ---
arrival to unit patient arrived via cart from ED. patient moved self from cart to bed. positioned for comfort. vss. room air. educated on environment.
--- NOTE | 2017-01-23 19:42 | NUR ---
ADMIT - DEPART PATIENT TRANSFERRED TO ROOM 155 AND TRANSFERRED OVER TO BED WITHOUT DIFFICULTY. CARES RELEASED.
[2017-01-23] MEDS ORDERED: ONDANSETRON 4mg/2ml INJECTION IV PRN (20:00)
[2017-01-23] MEDS ORDERED: RANITIDINE 150 MG TABLET PO PRN (20:00)
[2017-01-23 20:03] LABS: BASOPHILS,CSF 0 %; COLOR,CSF COLORLESS; EOSINOPHILS,CSF 0 %; MONOCYTES,CSF 0 %; NEUTROPHILS,CSF 0 %
[2017-01-23 20:09] LABS: LYMPHOCYTES,CSF 100 %
[2017-01-23] MEDS: D5NS 1,000 ML IV SCH (20:53)
[2017-01-24 03:20] VITALS: BP 108/61; PULSE 69; RESP 16; TEMP 96.9; O2SAT 100
[2017-01-24] MEDS ORDERED: MORPHINE SULFATE 2 MG SYRINGE IV PRN (03:30)
[2017-01-24] MEDS ORDERED: OXYCODONE/APAP 5mg/325mg TABLET PO PRN (03:30)
--- NOTE | 2017-01-24 03:39 | NUR ---
PRN. PT REPORTED 8/10 BACK PAIN. PT HAS NO PAIN MEDICATION ORDERED. TELE HOSPITALIST GAVE ORDER FOR PAIN MEDICATION. PT HAS NOT VOIDED SINCE ADMISSION. TRIED TO USE THE BED COCHRAN BUT SHE COULDN'T VOID. BLADDER SCANNED. RESIDUE WAS 625. TELE HOSPITALIST GAVE AN ORDER TO STRAIGHT CATH.
--- NOTE | 2017-01-24 04:00 | NUR ---
CATH STRAIGHT CATHED PT AT THIS TIME WITH 16F CATHETER, STERILE TECHNIQUE. IMMEDIATE RETURN OF CLEAR LIGHT GENE URINE, 700CC. PT ANXIOUS BUT COOPERATIVE, SUPPORT PERSON IN ROOM NEXT TO HER.
[2017-01-24 05:33] LABS: BASOPHILS % (AUTO) 0.5 % (0-2); EOSINOPHILS # (AUTO) 0.2 T/MM3 (0-0.5); EOSINOPHILS % (AUTO) 2.2 % (0-4); HGB - HEMOGLOBIN 12.4 GM/DL (12-16); IMMATURE GRANULOCYTE # (AUTO) 0.01 T/MM3 (0.00-0.03); IMMATURE GRANULOCYTE % (AUTO) 0.1 % (0.0-0.5); LYMPHOCYTES # (AUTO) 2.4 T/MM3 (1-4.8); LYMPHOCYTES % (AUTO) 32.1 % (23-45); MEAN CORPUSCULAR HGB 29.7 UUG (26-34); MEAN CORPUSCULAR HGB CONC(MCHC 33.5 GM/DL (31-37); MEAN CORPUSCULAR VOLUME 88.5 UM3 (80-100); MEAN PLATELET VOLUME 10.6 UM3 (9.4-12.4); MONOCYTES # (AUTO) 0.6 T/MM3 (0-0.8); MONOCYTES % (AUTO) 8.6 % (0-9.0); NEUTROPHILS #(AUTO)-ABSOLUTE 4.2 T/MM3 (1.8-7.7); NEUTROPHILS % (AUTO) 56.5 % (33-66); RED BLOOD COUNT 4.18 M/MM3 (4.00-5.20); WBC - WHITE BLOOD COUNT 7.4 T/MM3 (4.5-11.0)
[2017-01-24 05:43] LABS: AMMONIA < 9 UMOL/L (9-33)
[2017-01-24 06:08] LABS: ALBUMIN 3.3 G/DL (3.5-5.0); ALKALINE PHOSPHATASE 84 U/L (38-126); ALT (SGPT) 80 U/L (9-52); ANION GAP 10 MEQ/L (5-15); AST (SGOT) 51 U/L (14-36); BUN/CREATININE RATIO 26 RATIO (6-26); CALCIUM 8.5 MG/DL (8.4-10.2); CHLORIDE 109 MEQ/L (98-107); CO2 - CARBON DIOXIDE 26 MEQ/L (22-30); CREATININE 0.7 MG/DL (0.7-1.2); GLOMERULAR FILTRATION RATE 106; GLUCOSE 96 MG/DL (65-110); POTASSIUM 4.6 MEQ/L (3.6-5); SODIUM 145 MEQ/L (134-144); TOTAL PROTEIN 6.5 G/DL (6.3-8.2)
--- NOTE | 2017-01-24 06:34 | NUR ---
SUMMARY PT SLEEPING AT THE MOMENT. PT IS ALERT AND ORIENTED X3. ABLE TO VOICE NEEDS TO STAFFS. WAS GIVEN IV PAIN MEDICATION X 1 THIS SHIFT FOR BACK PAIN. PT ON BED REST AFTER SPINAL TAP. COMPLIANT WITH BED REST. FAMILY AT BEDSIDE ALL NIGHT. NO NEURO CHANGES THIS SHIFT. EXTREMITIES STRENGTH EQUAL ON ALL FOUR. PT WAS EDUCATED SUB MASTER LIGHT USE AND PT SAFETY.
[2017-01-24 07:26] VITALS: BP 112/58; PULSE 77; RESP 18; TEMP 97.9; O2SAT 100
[2017-01-24 08:00] VITALS: PULSE 77; RESP 18
--- NOTE | 2017-01-24 08:50 | DI ---
Indication: ITS.REASON: cough PROCEDURE: CHEST 1 VIEW: Encounter: Initial Comparison: June 11, 2010 FINDINGS: The lungs are clear. There is no abnormal airspace opacity, pleural effusion or pneumothorax identified. The heart size, pulmonary vasculature and mediastinum are within normal limits. No significant skeletal abnormality is seen. IMPRESSION: No acute cardiopulmonary abnormality. .
--- NOTE | 2017-01-24 08:50 | DI ---
Indication: ITS.REASON: ams, dizziness PROCEDURE: CT HEAD W/O CONTRAST: Encounter: Initial Comparison: None Technique: Axial CT images through the head were performed without contrast. Iterative Reconstruction dose reducing technique was utilized. FINDINGS: The ventricles are of normal size, shape, and configuration for the patient's age. There is no evidence of acute intracranial hemorrhage, midline displacement, or mass effect. The CT attenuation of the brain parenchyma is normal within the cerebellum, brain stem, and cerebral hemispheres. The tympanic cavities and mastoid air cells are free of appreciable disease. There are no definite fractures of the skull base, calvarium, or visualized portion of the midface. IMPRESSION: No CT evidence of acute intracranial abnormality. There is a preliminary report by [facility]. .
[2017-01-24] MEDS ORDERED: VENLAFAXINE XR 150 MG CAPSULE PO SCH (09:00)
[2017-01-24] MEDS ORDERED: METOPROLOL XL 50 MG TABLET PO SCH (09:00)
[2017-01-24] MEDS: D5NS 1,000 ML IV SCH (09:14)
--- NOTE | 2017-01-24 09:48 | NUR ---
STEPHANIE CM VISITED PT. CM EXPLAINED ROLE AND PROVIDED CONTACT INFORMATION. PT PLANS TOR ETURN HOME POST HOSPITAL STAY. PT IS AWARE TO CONTACT CM IF NEEDS ARISE.
[2017-01-24] MEDS ORDERED: NORGESTIMATE ETHINYL ESTRADIOL PO SCH (10:57)
[2017-01-24 11:55] VITALS: BP 115/68; PULSE 68; RESP 18; TEMP 98; O2SAT 100
[2017-01-24] MEDS ORDERED: ACETAMINOPHEN 325 MG TABLET PO PRN (14:30)
--- NOTE | 2017-01-24 15:23 | NUR ---
PAIN PT REPORTS HEADACHE AND PAIN IN BACK. NEW ORDER FOR SUSAN AND TYLENOL IMPLEMENTED.
[2017-01-24 16:00] VITALS: BP 98/58; PULSE 76; RESP 17; TEMP 98.3; O2SAT 98
--- NOTE | 2017-01-24 17:46 | NUR ---
SHIFT PT HAS BEEN PLEASANT AND COOPERATIVE ALL SHIFT. PT IS A&OX3, UP WITH NO ASSIST, LOW FALL. PT REPORTED HEADACHE, PRN TYLENOL WAS GIVEN. PT DENIES SOA AND N/V. PT IS ON ROOM AIR. PT HAS AMBULATED SELF IN AN. PT EATS 100% OF MEALS. NO CHANGES SINCE PREVIOUS NOTE.
--- NOTE | 2017-01-24 18:36 | NUR ---
DISMISSAL PT DISMISSED TO HOME VIA AMBULATION TO VEHICLE WITH BOYFRIEND. PT BELONGINGS PACKED, GO HOME INSTRUCTIONS GIVEN, IVL PULLED AND PT DRESSED.
--- NOTE | 2017-01-24 18:43 | DSPDOC ---
General Date Date DATE: 01/24/17 TIME: 18:28 Attending Physician Emelina Melendez MD Admitting Physician Emelina Melendez MD Consulting Physician Doom Stafford MD Admitting Diagnosis altered mental status Discharge Diagnosis Altered mental status, possibly due to inadvertent drug ingestion or drug reaction; resolved Vertigo Mydriasis Transaminitis, chronic SVT, status post ablation PTSD Obesity Procedures Lumbar puncture performed 01/23 with benign findings, culture negative at discharge. Laboratory Laboratory Tests Test 01/23/17 15:54 01/23/17 16:20 01/23/17 16:21 01/23/17 17:06 Turbidity < 20 (0-20) Sodium Level 144MEQ/L (134-144) Potassium Level 4.6MEQ/L (3.6-5) Chloride Level 108MEQ/L (98-107) Carbon Dioxide Level 27MEQ/L (22-30) Anion Gap 9MEQ/L (5-15) Blood Urea Nitrogen 22.0MG/DL (7-17) Creatinine 0.9MG/DL (0.7-1.2) Glomerular Filtration Rate Calc 79 BUN/Creatinine Ratio 24RATIO (6-26) Glucose Level 97MG/DL (65-110) Calculated Osmolality 280MOSM/KG (261-280) Calcium Level 9.3MG/DL (8.4-10.2) Total Bilirubin 1.20MG/DL (0.20-1.30) Icterus Index < 2 (0-7) Aspartate Amino Transf (AST/SGOT) 61U/L (14-36) Alanine Aminotransferase (ALT/SGPT) 108U/L (9-52) Alkaline Phosphatase 114U/L (38-126) Troponin I < 0.012ng/ml (0-0.12) Total Protein 7.6G/DL (6.3-8.2) Albumin 4.0G/DL (3.5-5.0) Globulin 3.6G/DL (2.4-3.6) Albumin/Globulin Ratio 1.1RATIO (1.1-2.2) Chemistry Specimen Hemolysis < 15 (0-25) Salicylates Level < 1.0MG/DL (2-20) Acetaminophen Level < 10UG/ML (10-30) Alcohol, Quantitative <10MG/DL (<10) Urine Collection Type [place] indwelling Urine Color Yellow (YELLOW) Urine Turbidity Clear (CLEAR) Urine pH 7.0 (5.0-8.0) Urine Specific [place] 1.015 (1.015-1.025) Urine Protein Negative (NEGATIVE) Urine Glucose (UA) Negative (NEGATIVE) Urine Ketones Negative (NEGATIVE) Urine Blood Negative (NEGATIVE) Urine Nitrite Negative (NEGATIVE) Urine Bilirubin Negative (NEGATIVE) Urine Urobilinogen 0.2EU/DL (NORMAL) Urine Leukocyte Esterase Negative (NEGATIVE) Urinalysis Comment Microscopic not ind. Urine Test Negative (NEGATIVE) Urine Opiates Screen NegativeNG/ML Urine Oxycodone Screen NegativeNG/ML Urine Methadone Screen NegativeNG/ML Urine Propoxyphene Screen NegativeNG/ML Urine Barbiturates Screen NegativeNG/ML Urine Tricyclic Antidepressants NegativeNG/ML Urine Phencyclidine Screen NegativeNG/ML Urine Amphetamines Screen NegativeNG/ML Urine Methamphetamines Screen NegativeNG/ML Urine Benzodiazepines Screen NegativeNG/ML Urine Cocaine Screen NegativeNG/ML Urine Cannabinoids Screen NegativeNG/ML White Blood Count 9.2T/MM3 (4.5-11.0) Red Blood Count 4.48M/MM3 (4.00-5.20) Hemoglobin 13.6GM/DL (12-16) Hematocrit 39.2% (36-46) Mean Corpuscular Volume 87.5UM3 (80-100) Mean Corpuscular Hemoglobin 30.4UUG (26-34) Mean Corpuscular Hemoglobin Concent 34.7GM/DL (31-37) RDW Standard Deviation 39.4FL (36.9-50.2) Platelet Count 272T/MM3 (130-400) Mean Platelet Volume 10.2UM3 (9.4-12.4) Immature Granulocyte % (Auto) 0.3% (0.0-0.5) Neutrophils (%) (Auto) 74.6% (33-66) Lymphocytes (%) (Auto) 17.3% (23-45) Monocytes (%) (Auto) 6.2% (0-9.0) Eosinophils (%) (Auto) 1.3% (0-4) Basophils (%) (Auto) 0.3% (0-2) Absolute Immature Granulocyte (auto 0.03T/MM3 (0.00-0.03) Absolute Neutrophils (auto) 6.9T/MM3 (1.8-7.7) Absolute Lymphocytes (auto) 1.6T/MM3 (1-4.8) Absolute Monocytes (auto) 0.6T/MM3 (0-0.8) Absolute Eosinophils (auto) 0.1T/MM3 (0-0.5) Absolute Basophils (auto) 0.0T/MM3 (0-0.2) Lab Scanned Report REFERENCE [id number] Test 01/23/17 19:27 01/23/17 20:53 01/23/17 21:24 01/24/17 04:43 CSF Color Colorless CSF Turbidity Clear CSF RBC 0/MM3 (0-0) CSF Total Nucleated Cell Count 1/MM3 (0-5) CSF Neutrophils 0% CSF Lymphocytes 100% CSF Monocytes 0% CSF Eosinophils % 0% CSF Basophils 0% CSF Other Cells % 0% CSF Glucose 59MG/DL (40-70) CSF Total Protein 18MG/DL (12-60) Cryptococcus Antigen Negative (NEGATIVE) Cytomegalovirus DNA Detection Negative (NEGATIVE) Escherichia coli (PCR) Negative (NEGATIVE) Haemophilus influenzae DNA Negative (NEGATIVE) Herpes Simplex Virus I DNA (PCR) Negative (NEGATIVE) Herpes Simplex Virus II DNA (PCR) Negative (NEGATIVE) Herpesvirus 6 DNA (PCR) Negative (NEGATIVE) Listeria (PCR) Negative (NEGATIVE) Neisseria meningitidis (PCR) Negative (NEGATIVE) Parechovirus (PCR) Negative (NEGATIVE) Enterovirus/Rhinovirus (PCR) Negative (NEGATIVE) Group B Streptococcus (PCR) Negative (NEGATIVE) Streptococcus pneumoniae (PCR) Negative (NEGATIVE) Varicella-Zoster Virus DNA (PCR) Negative (NEGATIVE) Glucometer 58mg/dL (65-110) 81mg/dL (65-110) White Blood Count 7.4T/MM3 (4.5-11.0) Red Blood Count 4.18M/MM3 (4.00-5.20) Hemoglobin 12.4GM/DL (12-16) Hematocrit 37.0% (36-46) Mean Corpuscular Volume 88.5UM3 (80-100) Mean Corpuscular Hemoglobin 29.7UUG (26-34) Mean Corpuscular Hemoglobin Concent 33.5GM/DL (31-37) RDW Standard Deviation 39.5FL (36.9-50.2) Platelet Count 230T/MM3 (130-400) Mean Platelet Volume 10.6UM3 (9.4-12.4) Immature Granulocyte % (Auto) 0.1% (0.0-0.5) Neutrophils (%) (Auto) 56.5% (33-66) Lymphocytes (%) (Auto) 32.1% (23-45) Monocytes (%) (Auto) 8.6% (0-9.0) Eosinophils (%) (Auto) 2.2% (0-4) Basophils (%) (Auto) 0.5% (0-2) Absolute Immature Granulocyte (auto 0.01T/MM3 (0.00-0.03) Absolute Neutrophils (auto) 4.2T/MM3 (1.8-7.7) Absolute Lymphocytes (auto) 2.4T/MM3 (1-4.8) Absolute Monocytes (auto) 0.6T/MM3 (0-0.8) Absolute Eosinophils (auto) 0.2T/MM3 (0-0.5) Absolute Basophils (auto) 0.0T/MM3 (0-0.2) Turbidity < 20 (0-20) Sodium Level 145MEQ/L (134-144) Potassium Level 4.6MEQ/L (3.6-5) Chloride Level 109MEQ/L (98-107) Carbon Dioxide Level 26MEQ/L (22-30) Anion Gap 10MEQ/L (5-15) Blood Urea Nitrogen 18.0MG/DL (7-17) Creatinine 0.7MG/DL (0.7-1.2) Glomerular Filtration Rate Calc 106 BUN/Creatinine Ratio 26RATIO (6-26) Glucose Level 96MG/DL (65-110) Calculated Osmolality 281MOSM/KG (261-280) Calcium Level 8.5MG/DL (8.4-10.2) Total Bilirubin 1.10MG/DL (0.20-1.30) Icterus Index < 2 (0-7) Aspartate Amino Transf (AST/SGOT) 51U/L (14-36) Alanine Aminotransferase (ALT/SGPT) 80U/L (9-52) Alkaline Phosphatase 84U/L (38-126) Ammonia < 9UMOL/L (9-33) Total Protein 6.5G/DL (6.3-8.2) Albumin 3.3G/DL (3.5-5.0) Globulin 3.2G/DL (2.4-3.6) Albumin/Globulin Ratio 1.0RATIO (1.1-2.2) Thyroid Stimulating Hormone (TSH) 1.20MIU/L (0.47-4.68) Chemistry Specimen Hemolysis 15 (0-25) Test 01/24/17 06:24 01/24/17 10:14 01/24/17 14:17 Glucometer 103mg/dL (65-110) 98mg/dL (65-110) 109mg/dL (65-110) Microbiology Microbiology Date/Time Source Procedure Growth Status 01/23/17 19:27 Cerebral Spinal Fluid Gram Stain - no organisms seen Resulted 01/23/17 19:27 Cerebral Spinal Fluid CSF Culture - Preliminary CULTURE INITIATED - Negative at 24 hours Resulted Radiology chest x-ray and CT of the head were both unremarkable History of Present Illness 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 History is partially provided by the patient's grandfather reports that the patient developed a sore throat 5 days prior to admission and hasn't been feeling particularly good since that time. Yesterday she was weak and tired described lightheadedness. He saw her prior to work this morning at which time she indicated she felt about the same. The patient reports that she had a bad headache this morning and that it felt like the room was spinning. She felt like she would pass out but decided she needed to go to work. Her grandfather notes that her speech was fairly normal when he started this morning. Patient additionally describes having nausea all day today. When she arrived at work she spoke with the nursing data processing supervisor because she felt poorly and at that time she became very somnolent and stopped responding to questions. No seizure activity or incontinence was reported and she subsequently presented to the emergency room for evaluation. The patient currently says she feels tired and her grandfather reports excessive somnolence and that all she does is sleep the last day or 2. She's had no vomiting and the patient insists that her oral intake has been good despite the recent sore throat. Attempt to ambulate the patient in the emergency room were limited by describe vertigo and patient's inability to open her eyes while standing. She's being hospitalized on observation basis following spinal tap been performed in the ER at this time. Hospital Course Altered mental status/somnolence Headache Vertigo Mydriasis Transaminitis Obesity SVT, status post ablation PTSD/Depression 01/23/17 Gela is hospitalized for further observation after presenting with headache/ vertigo/altered mental status. Monitor serial neurological checks; continue IV fluids. Initial laboratory data is unremarkable and urine drug screen negative. Hydroxyzine and trazodone may be responsible for some of the patient's presenting symptoms although both appear to be chronic medications. Trazodone, hydroxyzine, and tramadol will all be held. Liver enzymes have been noted to be mildly abnormal in the past, especially the ALT (dating back to 2009). Gela reports past vaccination for hepatitis B and C. Ammonia level will be screened with morning labs and sonogram of the right upper quadrant may be pursued if she is not clinically improved. SCDs for DVT prophylaxis. 01/24/17 Gela slept well overnight although experienced some urinary retention requiring straight catheterization 1. She complained of back pain and was treated with Percocet overnight. This morning she complains of fatigue but is able to keep her eyes open and have a conversation. She has minimal vertigo. In retrospect she doesn't think she took any extra hydroxyzine or trazodone but is uncertain. Similarly she thinks she only took NyQuil as per package instructions. She denies sore throat today and denies dyspnea or palpitations. She is experiencing some dry mouth. The patient is alert and in no distress. She is oriented 3 and flow of speech is normal today without latency. Pupils are 6 mm and react briskly to light, EOMI without nystagmus. Patient moves all extremities well and power is within normal limits. Breath sounds are clear cardiac rhythm regular. Patient was evaluated by physical therapy and ambulated in the halls under her own power without difficulty. She was able to void spontaneously later in the day. Psychiatric consultation was obtained with Dr. Stafford. Conversion reaction was considered as possible etiology of presenting symptoms although inadvertent drug ingestion or adverse reaction to combination of NyQuil with patient's usual prescribed medications are equal and likely is causing presenting symptoms in light of mydriasis and vertigo on admission. Patient is stable for discharge at this time and is advised against use of Benadryl or other sedating [id number] medications in conjunction with her usual medications. No change in home medications. She is asked to follow-up with Dr. Faye regarding abnormal liver enzymes and with Dr. Stafford as previously scheduled. Problems: Code Status Full Code Home Meds Reported Medications Ranitidine HCl (Ranitidine HCl) 150 Mg Tablet, 150 MG PO DAILY Y for REFLUX 01/23/17 Acetaminophen (Acetaminophen) 500 Mg Tablet, 500 MG PO Q4H Y for PAIN 01/23/17 Metoprolol Succinate (Metoprolol Succinate) 50 Mg Tab.er.24h, 50 MG PO DAILY 01/23/17 Trazodone HCl (Trazodone HCl) 50 Mg Tablet, 50 MG PO HS Y for PRN ORDERS 01/23/17 Tramadol HCl (Tramadol HCl) 50 Mg Tablet, 50 MG PO TID Y for PAIN 01/23/17 Venlafaxine HCl (Venlafaxine HCl ER) 150 Mg Tab.er.24, 150 MG PO DAILY 01/23/17 Hydroxyzine Pamoate (Hydroxyzine Pamoate) 50 Mg Capsule, 50 MG PO TID 01/23/17 Norgestimate-Ethinyl Estradiol (Sprintec 28 Day Tablet) 1 Tab Tablet, 1 TAB PO DAILY 01/23/17 Face to Face Encounter I met with patient on the day of dismissal and discussed follow up appointments , medications, and safety plan. Discharge Disposition home Copies To 1: DOMO STAFFORD MD Documentation Requirements Alt. Mental Status/Confusion Check if condition above is: Acute EMELINA MELENDEZ MD Jan 24, 2017 18:32
== END 2017-01-24 18:30 | disposition home or self-care (01) ==
LOC: ED 14:47 → EDHOLD 18:14 → MED 19:42
PROVIDERS: ADMIT Internal Medicine; ATTEND Internal Medicine
DX: R41.82 Altered mental status, unspecified (principal); Z79.899 Other long term (current) drug therapy; R42 Dizziness and giddiness; H57.04 Mydriasis; R74.0 Nonspecific elevation of levels of transaminase and lactic acid dehydrogenase [LDH]; I47.1 Supraventricular tachycardia; F43.10 Post-traumatic stress disorder, unspecified; F32.9 Major depressive disorder, single episode, unspecified; E66.9 Obesity, unspecified; Z68.42 Body mass index [BMI] 45.0-49.9, adult; M10.9 Gout, unspecified
CPT/HCPCS: 36415; 62270; 80053; 80306; 80307; 81003; 81025; 82140; 82945; 82948; 84157; 84443; 84484; 85025; 87070; 87205; 87483; 89051; 93005; 96360; 96361; 99218